=== PATIENT | female | born 1940 | race Caucasian/White ===

== ENCOUNTER 2017-02-27 16:16 | Emergency (ER) | payer BC ==
[~2017-02-27] VITALS: Ht 157.5 cm; Wt 69.0 kg
[~2017-02-27 16:16] MED LIST: ASPI81TA28 PO; EZET10TA63 PO; NAPR1TAB48 PO; OXYC-57 PO
[2017-02-27 16:27] VITALS: TEMP 36.9; Ht 157.5 cm; Wt 69.0 kg
[2017-02-27 16:42] LABS: BASO % 0.5 %; BASO ABS # 0.03 K/uL (0-0.2); COMPLETE YES; EOS % 0.5 %; HEMATOCRIT 45.6 % (37-47); IG% 0.2 %; LYMPH % 29.1 %; LYMPH ABS # 1.71 K/uL (1.2-3.4); MEAN CELL VOLUME 80.3 fL (80-100); MEAN CORPUSCULAR HGB CONC 36.2 g/dl (32-36); MEAN PLATELET VOLUME 10.1 fL (7.4-10.4); MONO % 10.4 %; NEUT % 59.3 %; PLATELET COUNT 259 K/uL (130-400); RED BLOOD COUNT 5.68 M/uL (4.2-5.4); WHITE BLOOD COUNT 5.88 K/uL (4.8-10.8)
[2017-02-27] MEDS ORDERED: ACET-1311 PO (16:43)
[2017-02-27] MEDS ORDERED: OXYC1TAB3 PO (16:43)
[2017-02-27] MEDS ORDERED: PRT/20 PO (16:43)
[2017-02-27] MEDS ORDERED: SODIUM CHLORIDE 0.9% 500ML 500 ML IV STA (16:51)
[2017-02-27] MEDS ORDERED: ONDANSETRON INJ 2 MG/ML 2 ML VIAL IV STA (16:51)
[2017-02-27] MEDS ORDERED: MoRPHine SULFATE 4 MG/ML 1 ML CARP\\VIAL IV STA (16:51)
[2017-02-27] MEDS ORDERED: OPTIRAY 320 IV PRN (17:00)
[2017-02-27 17:06] LABS: BUN/CREATININE RATIO 10.3 (10-20); CALCIUM 9.4 mg/dl (8.5-10.1); CREATININE 0.87 mg/dl (0.60-1.20); POTASSIUM 3.5 mmol/L (3.5-5.1)
[2017-02-27 17:09] LABS: ALB/GLOB RATIO 1.2 (0.9-2)
[2017-02-27 18:34] LABS: URINE APPEARANCE CLEAR (CLEAR); URINE BILIRUBIN NEG (NEG); URINE COLOR YELLOW; URINE NITRITE NEG (NEG); URINE PH 5.5 (4.5-7.5); URINE SPECIFIC GRAVITY 1.007 (1.000-1.030); UROBILINOGEN NEG (NEG)
[2017-02-27 18:36] LABS: MANUAL MICROSCOPIC REQUIRED? NO; REVIEW REQ? NO
--- NOTE | 2017-02-27 19:51 | DIAGNOSTIC IMAGING REPORT ---
CT SCAN OF THE ABDOMEN AND PELVIS WITH IV CONTRAST CLINICAL HISTORY: Right lower quadrant abdominal pain. COMPARISON STUDY: Abdominal CT dated 04/01/2012. TECHNIQUE: Following the IV administration of 92 cc of Optiray 320, CT scan of the abdomen and pelvis is performed from the lung bases to the proximal femora. Images are reviewed in the axial, sagittal, and coronal planes. The examination was performed in a delayed phase of enhancement. Automated dose control exposure was utilized. CT DOSE: 303.90 mGy.cm FINDINGS: Lung bases: The heart is normal in size and without pericardial effusion. Coronary arteries are densely calcified. Emphysema is noted. There is dependent atelectasis. No airspace consolidation or pleural effusion is identified. There is a small hiatal hernia. Enteric contrast fills the distal esophagus. Liver: The contrast-enhanced liver is normal in size, contour, and attenuation. There is [id number] intrahepatic biliary ductal dilatation, likely related to previous cholecystectomy. The hepatic veins and portal veins are patent. Gallbladder: Surgically absent noting clips in the gallbladder fossa. Spleen: Normal in size and attenuation. Pancreas: Moderately atrophic and grossly unremarkable. Adrenal glands: Unremarkable. Kidneys: The contrast enhanced kidneys are atrophic and without hydronephrosis. The kidneys enhance symmetrically. There are numerous large left-sided renal cysts which measure up to 7 cm. These have modestly increased in size from 2012. Abdominal vasculature: The abdominal aorta is normal in course and caliber noting moderate to advanced atherosclerotic calcification. Bowel: The small bowel and colon are normal in course and caliber. There are scattered colonic diverticula without CT evidence of acute diverticulitis. The appendix is not identified. Peritoneum: There is no intraperitoneal free air or abdominal ascites. Lymphadenopathy: None. Pelvic viscera: The bladder is distended and otherwise normal in appearance. The uterus is surgically absent. No adnexal lesion is seen. Skeletal structures: The skeletal structures are osteopenic. There is mild lumbosacral spondylosis. Minimal anterolisthesis is noted at L4-L5. No lytic or blastic lesions are seen. IMPRESSION: 1. There are no acute infectious or inflammatory findings in the abdomen or pelvis. 2. Small hiatal hernia. 3. Chronic changes as above. Electronically signed by: Ady Luo M.D. 02/27/2017 7:49 PM Dictated Date/Time: 02/27/2017 7:41 PM
--- NOTE | 2017-02-27 20:13 | DIAGNOSTIC IMAGING REPORT ---
CT SCAN OF THE LUMBAR SPINE WITHOUT IV CONTRAST CLINICAL HISTORY: Sciatica. COMPARISON STUDY: Radiographs of the lumbar spine dated 10/28/2016. Abdominal CT performed concurrently on 02/27/2017. TECHNIQUE: CT scan of the lumbar spine is performed from the lower thoracic spine to the sacrum. Images are reviewed in the axial, sagittal, and coronal planes. IV contrast was not administered specifically for this examination. There is IV contrast present from the concurrently performed CT scan of the abdomen and pelvis. FINDINGS: The skeletal structures are osteopenic. There is no evidence of fracture or malalignment. Vertebral body height is maintained throughout the lumbar spine. There is 5 mm of anterolisthesis at L4-L5, unchanged from the 10/28/2016 radiographic study. Alignment is otherwise preserved. There is no evidence of spondylolysis. The transverse and spinous processes are intact. Facet arthropathy is noted in the lower lumbar region. No lytic or blastic lesions are seen. There is no evidence of large disc herniation. Moderate degenerative disc space narrowing is seen at L4-L5. Posterior disc bulge is seen at L5-S1. This causes right-sided subarticular stenosis and may impinge on the exiting right L5 nerve root. The central canal is clear as imaged. The visualized sacrum and bony pelvis appear preserved. The paraspinous soft tissues are normal as imaged. The kidneys demonstrate cortical atrophy. Large left renal cysts are observed. There is advanced atherosclerotic calcification of the abdominal. See report of abdominal CT performed concurrently for detailed intraperitoneal findings. IMPRESSION: 1. There is no acute bony abnormality identified involving the lumbosacral spine. 2. Osteopenia and spondylotic change as detailed above. Dictated: 02/27/2017 7:52 PM Transcribed: 02/27/2017 8:12 PM [place] Electronically signed by: Ady Luo M.D. 02/27/2017 8:18 PM Dictated Date/Time: 02/27/2017 7:52 PM
--- NOTE | 2017-02-27 20:35 | EMERGENCY ROOM VISIT NOTE ---
History Report prepared by Nicola: Karthikeyan Rosas Under the Supervision of: Dr. Sander Aponte M.D. First contact with patient: 16:23 Chief Complaint: ABDOMINAL PAIN Stated Complaint: RT SIDE HIP PAIN Nursing Triage Summary: pt is to have spine surgery in March d/t back problems pt has chronic, severe right hip pain pt also had diarrhea for past 2 weeks yesterday the stool turned green in color and pt has developed severe lower abd pain no nausea and no vomiting pt taking oxycodone for pain History of Present Illness The patient is a 76 year old female with a history of a hysterectomy and appendectomy who presents to the Emergency Room with complaints of worsening right lower quadrant abdominal pain that started 2 weeks ago. She says that the pain was not severe until the last 3 or 4 days. Over the past 3 or 4 days, her pain has been most severe when she has a bowel movement. The patient has been having diarrhea for the past 3 weeks, which she describes as explosive with really bad gas initially. Up until today, her stools have been brown, but today , she has had 2 episodes of diarrhea with dark green stools. There was no blood. She denies any fevers, vomiting, urinary symptoms, rectal pain, or leg swelling. The patient is taking OxyContin because she has been dealing with back problems, and was diagnosed with scoliosis and sciatica in October of last year. She is scheduled to have spine surgery on the 23 of March. The patient says that no family members at home are sick and she has not had any recent trips outside the country. She denies any recent antibiotic use. She has had no incontinence or numbness or weakness in her legs. Source of History: patient, family Onset: 2 weeks ago Position: abdomen (RLQ) Symptom Intensity: moderate Timing: worsening Modifying Factors (Worsening): defecation Associated Symptoms: + diarrhea (with dark green stool today), No fevers, No hematochezia, No urinary symptoms, No vomiting Note: Associated symptoms: Denies rectal pain or leg swelling. Review of Systems See HPI for pertinent positives & negatives. A total of 10 systems reviewed and were otherwise negative. Past Medical & Surgical Medical Problems: (1) Back pain (2) Scoliosis Surgical Problems: (1) H/O: hysterectomy Family History Patient reports no known family medical history. Social History Smoking Status: Never Smoker Marital Status: Housing Status: lives with family Occupation Status: employed Current/Historical Medications Scheduled Aspirin (Aspirin Ec), 81 MG PO HS Ezetimibe (Zetia), 10 MG PO HS Pantoprazole (Protonix), 20 MG PO DAILY Scheduled PRN Acetaminophen (Tylenol), 650 MG PO Q6H PRN for Pain Naproxen (Naprosyn), 250 MG PO BID PRN for Pain Oxycodone Ir (Roxicodone Ir), 1-2 TAB PO Q6H PRN for Severe Pain Allergies Coded Allergies: Nitrofurantoin (Verified Allergy, Intermediate, HIVES,N&V, 02/27/17) Statins (Verified Adverse Reaction, Unknown, RESTLESS LEG/CRAMPING, ) Physical Exam Vital Signs Date Time Temp Pulse Resp B/P Pulse Ox O2 Delivery O2 Flow Rate FiO2 02/27/17 19:44 105 12 156/70 98 Room Air 02/27/17 18:49 99 16 145/72 95 Room Air 02/27/17 17:08 70 16 163/89 99 Room Air 02/27/17 16:29 96 02/27/17 16:27 36.9 96 20 206/86 98 Room Air Physical Exam Constitutional: Vital signs reviewed. Eyes: Pupils are equal round reactive to light. Conjunctiva are noninjected. ENT: Pharynx is clear without erythema or exudate. Mucous membranes are dry. Neck supple without meningeal signs. Respiratory: Clear to auscultation bilaterally. Breath sounds are equal bilaterally. Cardiovascular: Regular rate and rhythm. No rubs or gallops. GI: Soft, nondistended. Right lower quadrant tenderness, no guarding. Bowel sounds are present. Musculoskeletal: No peripheral edema. No lower extremity tenderness. Integumentary: No cyanosis. Neurological: The patient is awake and alert. No focal deficits. Motor and sensation intact in lower extremities bilaterally. Psychiatric: Normal affect. Medical Decision & Procedures ER Provider Diagnostic Interpretation: CT results as stated below per my review and radiologist interpretation. ] CT SCAN OF THE ABDOMEN AND PELVIS WITH IV CONTRAST CLINICAL HISTORY: Right lower quadrant abdominal pain. COMPARISON STUDY: Abdominal CT dated 04/01/2012. TECHNIQUE: Following the IV administration of 92 cc of Optiray 320, CT scan of the abdomen and pelvis is performed from the lung bases to the proximal femora. Images are reviewed in the axial, sagittal, and coronal planes. The examination was performed in a delayed phase of enhancement. Automated dose control exposure was utilized. CT DOSE: 303.90 mGy.cm FINDINGS: Lung bases: The heart is normal in size and without pericardial effusion. Coronary arteries are densely calcified. Emphysema is noted. There is dependent atelectasis. No airspace consolidation or pleural effusion is identified. There is a small hiatal hernia. Enteric contrast fills the distal esophagus. Liver: The contrast-enhanced liver is normal in size, contour, and attenuation. There is [id number] intrahepatic biliary ductal dilatation, likely related to previous cholecystectomy. The hepatic veins and portal veins are patent. Gallbladder: Surgically absent noting clips in the gallbladder fossa. Spleen: Normal in size and attenuation. Pancreas: Moderately atrophic and grossly unremarkable. Adrenal glands: Unremarkable. Kidneys: The contrast enhanced kidneys are atrophic and without hydronephrosis. The kidneys enhance symmetrically. There are numerous large left-sided renal cysts which measure up to 7 cm. These have modestly increased in size from 2012. Abdominal vasculature: The abdominal aorta is normal in course and caliber noting moderate to advanced atherosclerotic calcification. Bowel: The small bowel and colon are normal in course and caliber. There are scattered colonic diverticula without CT evidence of acute diverticulitis. The appendix is not identified. Peritoneum: There is no intraperitoneal free air or abdominal ascites. Lymphadenopathy: None. Pelvic viscera: The bladder is distended and otherwise normal in appearance. The uterus is surgically absent. No adnexal lesion is seen. Skeletal structures: The skeletal structures are osteopenic. There is mild lumbosacral spondylosis. Minimal anterolisthesis is noted at L4-L5. No lytic or blastic lesions are seen. IMPRESSION: 1. There are no acute infectious or inflammatory findings in the abdomen or pelvis. 2. Small hiatal hernia. 3. Chronic changes as above. Electronically signed by: Ady Luo M.D. 02/27/2017 7:49 PM Dictated Date/Time: 02/27/2017 7:[address] SCAN OF THE LUMBAR SPINE WITHOUT IV CONTRAST CLINICAL HISTORY: Sciatica. COMPARISON STUDY: Radiographs of the lumbar spine dated 10/28/2016. Abdominal CT performed concurrently on 02/27/2017. TECHNIQUE: CT scan of the lumbar spine is performed from the lower thoracic spine to the sacrum. Images are reviewed in the axial, sagittal, and coronal planes. IV contrast was not administered specifically for this examination. There is IV contrast present from the concurrently performed CT scan of the abdomen and pelvis. FINDINGS: The skeletal structures are osteopenic. There is no evidence of fracture or malalignment. Vertebral body height is maintained throughout the lumbar spine. There is 5 mm of anterolisthesis at L4-L5, unchanged from the 10/28/2016 radiographic study. Alignment is otherwise preserved. There is no evidence of spondylolysis. The transverse and spinous processes are intact. Facet arthropathy is noted in the lower lumbar region. No lytic or blastic lesions are seen. There is no evidence of large disc herniation. Moderate degenerative disc space narrowing is seen at L4-L5. Posterior disc bulge is seen at L5-S1. This causes right-sided subarticular stenosis and may impinge on the exiting right L5 nerve root. The central canal is clear as imaged. The visualized sacrum and bony pelvis appear preserved. The paraspinous soft tissues are normal as imaged. The kidneys demonstrate cortical atrophy. Large left renal cysts are observed. There is advanced atherosclerotic calcification of the abdominal. See report of abdominal CT performed concurrently for detailed intraperitoneal findings. IMPRESSION: 1. There is no acute bony abnormality identified involving the lumbosacral spine. 2. Osteopenia and spondylotic change as detailed above. Dictated: 02/27/2017 7:52 PM Transcribed: 02/27/2017 8:12 PM JORGE L_Radha Electronically signed by: Ady Luo M.D. 02/27/2017 8:18 PM Dictated Date/Time: 02/27/2017 7:52 PM Laboratory Results 02/27/17 16:20 Red Blood Count 5.68, Mean Corpuscular Volume 80.3, Mean Corpuscular Hemoglobin 29.0, Mean Corpuscular Hemoglobin Concent 36.2, Mean Platelet Volume 10.1, Neutrophils (%) (Auto) 59.3, Lymphocytes (%) (Auto) 29.1, Monocytes (%) (Auto) 10.4, Eosinophils (%) (Auto) 0.5, Basophils (%) (Auto) 0.5, Neutrophils # (Auto ) 3.49, Lymphocytes # (Auto) 1.71, Monocytes # (Auto) 0.61, Eosinophils # (Auto ) 0.03, Basophils # (Auto) 0.03 02/27/17 16:20 Test 02/27/17 16:20 02/27/17 17:55 White Blood Count 5.88 K/uL (4.8-10.8) Red Blood Count 5.68 M/uL (4.2-5.4) Hemoglobin 16.5 g/dL (12.0-16.0) Hematocrit 45.6 % (37-47) Mean Corpuscular Volume 80.3 fL (80-100) Mean Corpuscular Hemoglobin 29.0 pg (25-34) Mean Corpuscular Hemoglobin Concent 36.2 g/dl (32-36) Platelet Count 259 K/uL (130-400) Mean Platelet Volume 10.1 fL (7.4-10.4) Neutrophils (%) (Auto) 59.3 % Lymphocytes (%) (Auto) 29.1 % Monocytes (%) (Auto) 10.4 % Eosinophils (%) (Auto) 0.5 % Basophils (%) (Auto) 0.5 % Neutrophils # (Auto) 3.49 K/uL (1.4-6.5) Lymphocytes # (Auto) 1.71 K/uL (1.2-3.4) Monocytes # (Auto) 0.61 K/uL (0.11-0.59) Eosinophils # (Auto) 0.03 K/uL (0-0.5) Basophils # (Auto) 0.03 K/uL (0-0.2) RDW Standard Deviation 37.1 fL (36.4-46.3) RDW Coefficient of Variation 12.7 % (11.5-14.5) Immature Granulocyte % (Auto) 0.2 % Immature Granulocyte # (Auto) 0.01 K/uL (0.00-0.02) Anion Gap 12.0 mmol/L (3-11) Est Creatinine Clear Calc Drug Dose 50.1 ml/min Estimated GFR () 75.0 Estimated GFR (Non- 64.7 BUN/Creatinine Ratio 10.3 (10-20) Calcium Level 9.4 mg/dl (8.5-10.1) Total Bilirubin 0.5 mg/dl (0.2-1) Aspartate Amino Transf (AST/SGOT) 15 U/L (15-37) Alanine Aminotransferase (ALT/SGPT) 20 U/L (12-78) Alkaline Phosphatase 62 U/L (45-117) Total Protein 7.3 gm/dl (6.4-8.2) Albumin 4.0 gm/dl (3.4-5.0) Globulin 3.3 gm/dl (2.5-4.0) Albumin/Globulin Ratio 1.2 (0.9-2) Lipase 119 U/L (73-393) Urine Color YELLOW Urine Appearance CLEAR (CLEAR) Urine pH 5.5 (4.5-7.5) Urine Specific [place] 1.007 (1.000-1.030) Urine Protein NEG (NEG) Urine Glucose (UA) NEG (NEG) Urine Ketones 2+ (NEG) Urine Occult Blood NEG (NEG) Urine Nitrite NEG (NEG) Urine Bilirubin NEG (NEG) Urine Urobilinogen NEG (NEG) Urine Leukocyte Esterase TRACE (NEG) Urine WBC (Auto) 1-5 /hpf (0-5) Urine RBC (Auto) 0-4 /hpf (0-4) Urine Hyaline Casts (Auto) 0 /lpf (0-5) Urine Epithelial Cells (Auto) 10-20 /lpf (0-5) Urine Bacteria (Auto) NEG (NEG) Laboratory results as reviewed by me. Medications Administered Medications (Trade) Dose Ordered Sig/Zenon Route Start Time Stop Time Status Last Admin Dose Admin Morphine Sulfate (MoRPHine SULFATE INJ) 4 mg ONE STAT IV 02/27/17 16:51 02/27/17 16:53 DC 02/27/17 17:00 4 MG Ondansetron HCl 4 mg 4 mg NOW STAT IV 02/27/17 16:51 02/27/17 16:53 DC 02/27/17 17:00 4 MG Sodium Chloride (Nss 500ml) 500 ml @ 999 mls/hr Q31M STAT IV 02/27/17 16:51 02/27/17 17:21 DC 02/27/17 17:01 999 MLS/HR ED Course 1639: The patient was evaluated in room C8. A complete history and physical exam was performed. 1651: Ordered NSS 500 ml @ 999 mls/hr IV, Zofran Inj 4 mg IV, Morphine Sulfate Inj 4 mg IV. 1734: I reevaluated the patient and she is feeling better. I discussed the blood test results with her. We are still waiting for a stool sample and CT scan. 2014: I reevaluated the patient and she is feeling much better, but is still unable to give a stool sample, so she will drop off the stool sample in the lab tomorrow morning. She has an order by her doctor for it. The patient verbally expressed understanding and agreement of the treatment plan. The patient will be discharged. Medical Decision This is a 76-year-old female who presents with diarrhea, abdominal pain and back pain. Differential diagnosis includes C. difficile, colitis, enteritis, food borne illness, dehydration, lumbar disc disease, compression fracture. I did perform a limited focused review of portions of the patient's old chart on the electronic medical record. The patient was seen here October of last year for sciatica and had an x-ray which showed degenerative changes and scoliosis. I did evaluate the patient as noted above. IV access was established. The patient brought in a stool sample but unfortunately it was not refrigerated and so we could not use it. She was unable to give us a stool sample here to check for C. difficile antigen or stool culture. I did treat the patient with normal saline IV and IV morphine and Zofran. I did order and personally review the patient's urinalysis as described above. I did order and review the patient's blood work as noted in the electronic medical record. Her white blood cell count is not elevated. I did order a CT of the abdomen and pelvis and lumbosacral spine. I did review the images myself as well as the radiology report as described above. There is no evidence of acute intra-abdominal process. No evidence of fracture in the lumbar spine. She does have multiple left-sided kidney cysts which he knows about. I did reassess the patient. She is feeling much better. I did discuss the test results with her and her family. She is still unable to give us a stool sample. I did check with the charge nurse and she stated that the patient can give a sample tomorrow morning and the level run it then. The patient was discharged in good condition. She will follow up with her doctor for further evaluation. She was given return instructions as below. Impression Primary Impression: Right lower quadrant abdominal pain Additional Impressions: Diarrhea Chronic low back pain Dehydration Scribe Attestation The scribe's documentation has been prepared under my direct and personally reviewed by me in its entirety. I confirm that the note above accurately reflects all work, treatment, procedures, and medical decision making performed by me. Departure Information Dispostion Home / Self-Care Referrals Adonay Almaguer M.D. (PCP) Forms HOME CARE DOCUMENTATION FORM, IMPORTANT VISIT INFORMATION Patient Instructions ED Abd Pain Unkn Cause Fem, ED Back Pain Acute Chronic, My [facility] Additional Instructions You have been examined and treated today on an emergency basis only. This is not a substitute for, or an effort to provide, complete comprehensive medical care. It is impossible to recognize and treat all injuries or illnesses in a single emergency department visit. It is therefore important that you follow up closely with your physician. Call as soon as possible for an appointment. Return for worsening symptoms or if you develop fever, vomiting, loss of control of your bowel or bladder, numbness or weakness to your legs, numbness to your private area, difficulty urinating, or any other concerning symptoms. Problem Qualifiers Additional Impressions: Diarrhea Diarrhea type: unspecified type Qualified Codes: R19.7 - Diarrhea, unspecified Chronic low back pain Back pain laterality: right Sciatica presence: with sciatica Sciatica laterality: sciatica of right side Qualified Codes: M54.41 - Lumbago with sciatica, right side; G89.29 - Other chronic pain
[2017-02-27 20:38] VITALS: BP 131/82; PULSE 100; O2SAT 96
[2017-03-06] MEDS ORDERED: FLX5 PO (15:11)
[2017-03-12] MEDS ORDERED: RXC5 PO (16:09)
== END 2017-02-27 20:40 | disposition home or self-care (01) ==
LOC: EDBD 16:16 → C.EDC 16:18
DX: R10.31 Right lower quadrant pain (principal); R19.7 Diarrhea, unspecified; G89.29 Other chronic pain; M54.41 Lumbago with sciatica, right side; E86.0 Dehydration; M41.9 Scoliosis, unspecified; Z90.710 Acquired absence of both cervix and uterus; K44.9 Diaphragmatic hernia without obstruction or gangrene; N28.1 Cyst of kidney, acquired

== ENCOUNTER → 2017-02-28 | Outpatient (CLI) | payer BC ==
[~2017-02-28] MED LIST changes: +ACET-1311 PO; +FLX5 PO; -OXYC-57 PO; +OXYC1TAB3 PO; +PRT/20 PO; +RXC5 PO
== END | disposition home or self-care (01) ==
LOC: C.LABSPEC 09:07
PROVIDERS: ATTEND Internal Medicine
DX: R19.7 Diarrhea, unspecified (principal)

== ENCOUNTER 2017-03-09 08:26 | Inpatient (IN) | payer BC, OTHER ==
[2017-03-05 12:17] LABS: BASO % 0.5 %; BASO ABS # 0.04 K/uL (0-0.2); COMPLETE YES; EOS % 0.9 %; HEMATOCRIT 44.5 % (37-47); IG% 0.1 %; LYMPH % 23.9 %; LYMPH ABS # 1.84 K/uL (1.2-3.4); MEAN CELL VOLUME 84.6 fL (80-100); MEAN CORPUSCULAR HEMOGLOBIN 28.9 pg (25-34); MEAN CORPUSCULAR HGB CONC 34.2 g/dl (32-36); MEAN PLATELET VOLUME 10.2 fL (7.4-10.4); MONO % 8.7 %; NEUT % 65.9 %; PLATELET COUNT 275 K/uL (130-400); RED BLOOD COUNT 5.26 M/uL (4.2-5.4); WHITE BLOOD COUNT 7.71 K/uL (4.8-10.8)
--- NOTE | 2017-03-05 12:31 | DIAGNOSTIC IMAGING REPORT ---
CHEST 2 VIEWS ROUTINE CLINICAL HISTORY: PRE-OP COMPARISON STUDY: No previous studies for comparison. FINDINGS: The bones soft tissues and hemidiaphragms are normal. The cardiomediastinal silhouette is normal. The lungs are clear. The pulmonary vasculature is normal. IMPRESSION: Negative chest. Electronically signed by: Nolberto Schafer M.D. 03/05/2017 12:28 PM Dictated Date/Time: 03/05/2017 12:28 PM
[2017-03-05 12:59] LABS: BLOOD UREA NITROGEN 9 mg/dl (7-18); BUN/CREATININE RATIO 11.1 (10-20); CALCIUM 9.2 mg/dl (8.5-10.1); CARBON DIOXIDE 25 mmol/L (21-32); CHLORIDE 109 mmol/L (98-107); CREATININE 0.81 mg/dl (0.60-1.20); GLUCOSE 119 mg/dl (70-99); POTASSIUM 3.5 mmol/L (3.5-5.1); SODIUM 141 mmol/L (136-145)
--- NOTE | 2017-03-05 13:46 | HISTORY & PHYSICAL EXAMINATION ---
DATE OF ADMISSION: 03/09/2017 HISTORY OF PRESENT ILLNESS: The patient presents to our practice with a complaint of pain in her back down her right leg. This started around of 2015. No specific accident, trauma or fall. Left leg is asymptomatic. Sitting, standing, and walking reproduce her pain. She is most comfortable lying down or on her left side or leaning forward. She states she has basically been homebound since . Denies bowel or bladder dysfunction. She has trialed senior care specialist without relief. She has trialed [address] Beard, again without long lasting relief. She is taking naproxen for pain control. MEDICAL HISTORY: Significant for GERD, arthritis, basal cell carcinoma in 2016, gallbladder disease, hiatal hernia, inflammatory bowel disease. SURGICAL HISTORY: Significant for Mohs procedure x2, cataract, umbilical hernia repair, cholecystectomy, and a cystocele repair. ALLERGIES: INCLUDE STATINS AND MACRODANTIN. MEDICATIONS: Include: 1. Zetia 10 mg a day. 2. Protonix 40 mg a day. 3. Aspirin 81 mg a day. 4. Naproxen 400 mg p.r.n. pain. SOCIAL HISTORY: She is . She is retired. Denies alcohol. Denies tobacco. Denies drug use. FAMILY HISTORY: Significant for hypertension, cancer and arthritis. REVIEW OF SYSTEMS: Significant for constipation, heartburn, muscle weakness, poor coordination, back and leg pain. PHYSICAL EXAMINATION: VITAL SIGNS: 5 feet 2 inches, 144 pounds. HEENT: Speech appropriate. CARDIOPULMONARY: No gross abnormalities. ABDOMEN: Soft, nontender. GENITOURINARY: Deferred. NEUROLOGIC: Cranial nerves II-XII grossly intact. MUSCULOSKELETAL: She is quite uncomfortable. She ambulates with a right antalgic gait. Lumbar extension reproduces her right leg pain; flexion does not. Strength is intact in bilateral lower extremities. No tension signs. ASSESSMENT: Grade 1 spondylolisthesis of L4-L5; neural foraminal stenosis, severe on the right L5-S1. PLAN: At this point in time, she has tried and failed conservative therapy. May consider surgical intervention. Surgery would require lumbar decompression, instrumented fusion L4-L5, L5-S1. In addition, due to her sedentary lifestyle, preoperatively we would ask for Dopplers of bilateral lower extremities to rule out DVT. We also will have her see her family physician Dr. Almaguer preoperatively.
--- NOTE | 2017-03-05 14:04 | DIAGNOSTIC IMAGING REPORT ---
BILATERAL LOWER EXTREMITY VENOUS DOPPLER HISTORY: Pain. Edema. - COMPARISON STUDY: None. FINDINGS: There is normal compressibility, flow, and augmentation within the bilateral lower extremity deep venous systems. IMPRESSION: No DVT within the right or left lower extremity. Electronically signed by: Nolberto Schafer M.D. 03/05/2017 2:02 PM Dictated Date/Time: 03/05/2017 2:02 PM
[2017-03-05 15:00] LABS: URINE APPEARANCE CLEAR (CLEAR); URINE BILIRUBIN NEG (NEG); URINE COLOR YELLOW; URINE NITRITE NEG (NEG); URINE PH 5.5 (4.5-7.5); UROBILINOGEN NEG (NEG)
[2017-03-05 15:03] LABS: MANUAL MICROSCOPIC REQUIRED? NO; REVIEW REQ? NO
[2017-03-06 15:14] VITALS: BMI 24.0
[~2017-03-09] VITALS: Ht 160 cm; Wt 62.7 kg
[2017-03-09] VITALS (10 sets, daily range): BP systolic 118–151; BP diastolic 67–92; PULSE 66–113; TEMP 36.1–36.9; O2SAT 91–100; Ht 160 cm; Wt 62.7 kg
--- NOTE | 2017-03-09 07:28 | History & Physical Bridge Note ---
H&P Re-Evaluation Bridge Note: I have examined the patient, reviewed the History & Physical and in the interval since the performance of the History & Physical I have noted the following changes of clinical significance: No changes noted
[~2017-03-09 08:26] MED LIST changes: +CEFAZOLIN 1000MG/55 ML D5W IV SCH; +LACTATED RINGER'S 1000ML 1,000 ML IV SCH; -RXC5 PO
[2017-03-09] MEDS ORDERED: EpHEDrine SULFATE INJ 50 MG/ML AMP IV PRN (08:45)
[2017-03-09] MEDS ORDERED: HYDROmorphone INJ 0.5 MG/0.5 ML SYR IV PRN (08:45)
[2017-03-09] MEDS ORDERED: ONDANSETRON INJ 2 MG/ML 2 ML VIAL IV PRN ×2 (08:45→11:45)
[2017-03-09] MEDS ORDERED: FENTANYL CITRATE INJ 50 MCG/1 ML 2 ML VIAL IV PRN (08:45)
[2017-03-09] MEDS ORDERED: ATROPINE SULFATE 0.1 MG/ML 5ML SYR IV PRN (08:45)
[2017-03-09] MEDS ORDERED: FENTANYL CITRATE INJ 50 MCG/1 ML 2 ML VIAL ONE ×4 (09:18→11:24)
[2017-03-09] MEDS ORDERED: MIDAZOLAM HCL 1 MG/ML 2ML VIAL ONE (09:18)
[2017-03-09] MEDS ORDERED: SODIUM CHLORIDE 0.9% PF 50 ML VIAL ONE (09:48)
[2017-03-09] MEDS ORDERED: BUPIVACAINE/EPINEPHRINE 0.5% MPF 1:200,000 30 ML VIAL ONE (09:48)
[2017-03-09] MEDS ORDERED: BACITRACIN 50000 UNIT VIAL ONE (09:48)
[2017-03-09] MEDS ORDERED: HYDROmorphone INJ 2 MG/ML SYR/VIAL ONE ×2 (10:22→11:45)
[2017-03-09] MEDS ORDERED: PHENYLEPHRINE 100MCG/ML 5ML SYR ONE ×2 (10:51→11:46)
[2017-03-09] MEDS ORDERED: ROCURONIUM BROMIDE 10 MG/ML 5 ML VIAL ONE ×2 (11:11→11:46)
[2017-03-09] MEDS ORDERED: DEXAMETHASONE SOD INJ 4 MG/ML VIAL ONE (11:11)
[2017-03-09] MEDS ORDERED: PROPOFOL IV EMULSION 10 MG/ML 20 ML VIAL IV ONE (11:11)
[2017-03-09] MEDS ORDERED: ESMOLOL HCL 10 MG/ML 10 ML VIAL ONE (11:11)
[2017-03-09] MEDS ORDERED: LIDOCAINE HCL 2% 2 ML VIAL (20MG/ML) ONE (11:11)
[2017-03-09] MEDS ORDERED: CEFAZOLIN SOD 1 GM VIAL ONE (11:25)
[2017-03-09] MEDS ORDERED: FLOSEAL HEMOSTATIC MATRIX 10ML TOP ONE (11:33)
[2017-03-09] MEDS ORDERED: DURASEAL DURAL SEALANT 5ML TOP ONE (11:35)
[2017-03-09] MEDS ORDERED: SODIUM CHLORIDE 0.9% 1000ML 1,000 ML IV SCH (11:37)
--- NOTE | 2017-03-09 11:37 | [facility] Post Operative Brief Note ---
Immediate Operative Summary Operative Date Mar 09, 2017. Pre-Operative Diagnosis Grade 1 spondylolisthesis of L4-L5; neural foraminal stenosis, severe on the right L5-S1. Post-Operative Diagnosis Grade 1 spondylolisthesis of L4-L5; neural foraminal stenosis, severe on the right L5-S1. Procedure(s) Performed L4-L5, L5-S1 Lumbar Decompression/Laminectomy, Discectomy, Pedicle Screw Fixation, Application of Leigh, Application of Bone Morphogenetic Protein, and Posteriolateral Gutter Fusion Surgeon Dr. Dmitry Ross Expressive Art Therapist Surgeon(s) Pilar Maurer PA-C Estimated Blood Loss 150ML Findings stenosis/spondy Specimens None per surgeon
[2017-03-09] MEDS ORDERED: METOCLOPRAMIDE HCL INJ 5 MG/ML 2 ML VIAL IV PRN (11:45)
[2017-03-09] MEDS ORDERED: DO NOT ADMINISTER FLU VACCINE PRN ×3 (11:45)
[2017-03-09] MEDS ORDERED: SOD PHOSPHATE/SOD BIPHOSPHATE ENEMA 132 ML BTL PR PRN (11:45)
[2017-03-09] MEDS ORDERED: MAGNESIUM HYDROXIDE SUSP 30 ML UDC PO PRN (11:45)
[2017-03-09] MEDS ORDERED: PROMETHAZINE HCL INJ 12.5 MG in SODIUM CHLORIDE 0.9% 50ML 50 ML IV PRN (11:45)
[2017-03-09] MEDS ORDERED: ALUMINUM/MAGNESIUM SUSP 30 ML UDC PO PRN (11:45)
[2017-03-09] MEDS ORDERED: BISACODYL 10 MG SUPP PR PRN (11:45)
[2017-03-09] MEDS ORDERED: hydrOXYzine HCL 25 MG TAB PO PRN (11:45)
[2017-03-09] MEDS ORDERED: LORAZEPAM INJ 0.5 MG in SYRINGE 0.75 ML IV PRN (11:45)
[2017-03-09] MEDS ORDERED: FAMOTIDINE 20 MG TAB PO PRN (11:45)
[2017-03-09] MEDS ORDERED: ACETAMINOPHEN IV 100 ML IV PRN (11:45)
[2017-03-09] MEDS ORDERED: DO NOT ADMINISTER PNEUMOCOCCAL VACCINE PRN ×2 (11:45)
[2017-03-09] MEDS ORDERED: NALOXONE HCL 0.4 MG/1 ML VIAL/CARP IV PRN ×2 (11:45)
[2017-03-09] MEDS ORDERED: KETOROLAC TROMETHAMINE 30 MG/ML VIAL ONE (11:46)
[2017-03-09] MEDS ORDERED: NEOSTIGMINE METHYLSULFATE 1 MG/ML 10ML VIAL ONE (11:46)
[2017-03-09] MEDS ORDERED: ONDANSETRON INJ 2 MG/ML 2 ML VIAL ONE (11:46)
[2017-03-09] MEDS ORDERED: GLYCOPYRROLATE INJ 0.2 MG/ML VIAL ONE (11:46)
[2017-03-09] MEDS: HYDROmorphone HCL 0.5MG/ML 50 ML CASSETTE IV PRN ×3 (12:05→22:51)
--- NOTE | 2017-03-09 12:06 | OPERATIVE REPORT ---
DATE OF OPERATION: 03/09/2017 PREOPERATIVE DIAGNOSES: Spinal stenosis, spondylolisthesis. POSTOPERATIVE DIAGNOSIS: Same. PROCEDURE PERFORMED: 1. Lumbar decompression, medial facetectomy, and foraminotomy L3-4, L4-5, L5-S1. 2. Posterior spinal fusion L4-5, L5-S1. 3. Placement posterior segmental instrumentation using Orthros rods and screws L4-5, L5-S1. 4. Placement of locally harvested morcellized autograft in posterior gutters. 5. Placement of Infuse collagen sponge combined with Mastergraft and Leigh bone graft in the posterior lateral gutters. SURGEON: Dr. Dmitry Ross. BUSINESS PROCESS REPRESENTATIVE: Pilar Roman PA-C. Due to the complex nature of the procedure, the entire surgery was performed with the physical laboratory assistant of Pilar Roman PA-C. The assistant associate full professor, under direct supervision, was involved in the actual performance of all aspects of the surgical procedure including hemostasis, tissue retraction and incision, instrument management, patient positioning, and wound closure. ANESTHESIA: General. DISPOSITION: The patient awakened and taken to PACU in stable condition. HISTORY OF PATIENT'S PROBLEMS: This is a 76-year-old female who presents with above-mentioned diagnosis. After failing an extensive course of nonoperative care, elected to undergo the above-mentioned procedure. Risks, benefits, pros, cons, and alternatives were outlined in detail preoperatively. OPERATION AND FINDINGS: PROCEDURE: The patient was met with preoperatively, the case discussed and all questions were addressed. At that point the patient was taken back to operative suite and after undergoing successful general intubation by the department of anesthesia was placed in prone position on the Ralph table atop Jeffrey frame. All bony prominences were well padded and the eyes were inspected to ensure there was no external pressure placed upon them. At this point, the lumbar spine was prepped and draped in normal sterile fashion. Sharp dissection with the assistance of Bovie cautery performed down to and exposing the lamina and transverse processes of L4, L5 and sacral ala bilaterally. I then removed part of the lamina of L5, complete laminectomy of L4, partial laminectomy of L3 addressing severe lateral recess and foraminal disease. I did elect to retain majority at the L5-S1 facets for additional bone grafting secondary to osteoporosis and stability required. After decompression, pedicle screws were placed in L4, L5 and S1 levels bilaterally with the assistance of fluoroscopy and the appropriate size héctor locked into position. A crosslink was locked into position. The transverse processes of L4, L5 and sacral ala were burred to subcortical bleeding bone. Infuse collagen sponge combined with Mastergraft placed in the posterior gutters and Leigh bone grafting in the L5-S1 facets, 7 flat ANGEL drain inserted. Incision was closed with 1-0 Vicryl in the fascia, 2-0 Vicryl subcutaneously, 4-0 Monocryl for final skin closure. Steri-Strips and sterile dressing placed. The patient was awakened and taken to PACU in stable condition. I attest to the content of the Intraoperative Record and any orders documented therein. Any exceptio ns are noted below.
--- NOTE | 2017-03-09 12:06 | DIAGNOSTIC IMAGING REPORT ---
INTRAOPERATIVE FLUOROSCOPIC IMAGES OF THE LUMBAR SPINE CLINICAL HISTORY: L4-S1 DECOMP/FUSION COMPARISON STUDY: Lumbar spine CT February 27, 2017. Fluoroscopy time: 31 seconds. FINDINGS: 2 fluoroscopic images demonstrate findings consistent with a posterior decompression with bilateral particle screws at the L4, L5 and S1 levels. IMPRESSION: Findings consistent with a posterior decompression with bilateral pedicle screw fusion from L4 through S1. Electronically signed by: Herb Yu M.D. 03/09/2017 12:04 PM Dictated Date/Time: 03/09/2017 12:02 PM
[2017-03-09] MEDS: SODIUM CHLORIDE 0.9% 1000ML 1,000 ML IV SCH (13:10)
--- NOTE | 2017-03-09 14:40 | Medical Consult ---
Consultation Date of Consultation: Mar 09, 2017. Attending Physician: Dmitry Ross D.O. Reason for Consultation: Medical management History of Present Illness This patient is a pleasant 76-year-old female that underwent a lumbar decompression at L4-L5 and L5-S1 today. She is currently rating her pain at approximately 8/10. 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 The pain radiates into her right hip. The patient otherwise has no complaints. She is tolerating her lunch without difficulty. She has not yet passed gas since the surgery. She denies any abdominal pain. The patient denies any recent chest pain or pressure. No dyspnea with exertion. She is able to walk approximately one block without difficulty (besides her back/hip pain). Past Medical/Surgical History Medical Problems: GERD Arthritis History of basal cell carcinoma Hyperlipidemia Status post cholecystectomy, Mohs procedure, cataract surgery and umbilical hernia surgery Family History Patient reports no known family medical history. Both mother and father in her 60s of coronary artery disease. She also reports a family history of diabetes. Social History Smoking Status: Never Smoker Smokeless Tobacco Use: No Alcohol Use: none Marital Status: Housing Status: lives with significant other Occupation Status: employed Allergies Coded Allergies: Nitrofurantoin (Verified Allergy, Intermediate, HIVES,N&V, 03/09/17) Statins (Verified Adverse Reaction, Unknown, RESTLESS LEG/CRAMPING, ) Home Medications Zetia 10 mg daily Protonix 40 mg daily Aspirin 81 mg daily Naprosyn 200 mg every 12 hours as needed for pain Oxycodone every 4 hours as needed for pain Current Inpatient Medications Current Inpatient Medications Medications (Trade) Dose Ordered Sig/Zenon Route Start Time Stop Time Status Last Admin Dose Admin Lactated Ringer's 1,000 ml @ 15 mls/hr Q24H IV 03/09/17 06:00 03/10/17 05:59 Cefazolin Sodium 55 ml @ 100 mls/hr PREOP IV 03/09/17 06:00 03/09/17 18:00 03/09/17 09:53 100 MLS/HR Dexamethasone Sodium Phosphate 6 mg/Syringe 1.5 ml @ 1 mls/min Q8H IV 03/09/17 18:00 03/10/17 10:02 Promethazine HCl/ Sodium Chloride (Phenergan Inj/ Nss 50ml) 50.5 ml @ 202 mls/hr Q6H PRN IV 03/09/17 11:45 04/08/17 11:44 Ondansetron HCl (Zofran Inj) 4 mg Q6H PRN IV 03/09/17 11:45 04/08/17 11:44 Metoclopramide HCl (Reglan Inj) 10 mg Q6H PRN IV 03/09/17 11:45 04/08/17 11:44 Lorazepam 0.5 mg 0.5 mg Q8H PRN PO 03/09/17 11:45 04/08/17 11:44 Lorazepam/Syringe (Ativan Inj/ Syringe) 1 ml @ 1 mls/min Q8H PRN IV 03/09/17 11:45 04/08/17 11:44 Pneumococcal Polysaccharide Vaccine 1 ea PRN PRN N/A 03/09/17 11:45 04/08/17 11:44 Influenza Virus Vacc Triv Types A&B 1 ea 1 ea PRN PRN N/A 03/09/17 11:45 04/08/17 11:44 Sodium Chloride (Nss 1000ml) 1,000 ml @ 75 mls/hr [id number] IV 03/09/17 11:37 04/08/17 11:36 03/09/17 13:10 75 MLS/HR Polyethylene (Miralax Powder Packet) 17 gm Q6 PO 03/11/17 06:00 04/10/17 05:59 Bisacodyl (Dulcolax Supp) 10 mg DAILY PRN MS 03/09/17 11:45 04/08/17 11:44 Magnesium Hydroxide (Milk Of Magnesia Susp) 30 ml DAILY PRN PO 03/09/17 11:45 04/08/17 11:44 Hydromorphone HCl (Dilaudid Inj) 0.5-1mg prn moder... Q3H PRN IV 03/10/17 06:00 03/24/17 05:59 Oxycodone HCl 5-10mg prn moderate to sev... Q4H PRN PO 03/10/17 06:00 03/24/17 05:59 Cefazolin Sodium/ Dextrose (Ancef Iv/D5 50ml) 55 ml @ 100 mls/hr Q8H IV 03/09/17 18:00 03/10/17 02:32 Acetaminophen 1000 mg 1,000 mg Q8H PRN PO 03/09/17 11:45 04/08/17 11:44 Acetaminophen (Ofirmev Iv) 100 ml @ 400 mls/hr Q8H PRN IV 03/09/17 11:45 04/08/17 11:44 Naloxone HCl (Narcan Inj) 0.1 mg Q5M PRN IV 03/09/17 11:45 04/08/17 11:44 Senna/Docusate Sodium (Senokot S Tab) 2 tab HS PO 03/09/17 21:00 04/08/17 20:59 Sodium Biphosphate/ Sodium Phosphate (Fleet Enema) 132 ml ONE PRN MS 03/09/17 11:45 04/08/17 11:44 Hydroxyzine HCl (Vistaril Tab) 25 mg Q8H PRN PO 03/09/17 11:45 04/08/17 11:44 Al Hydroxide/Mg Hydroxide (Maalox Susp) 30 ml Q6H PRN PO 03/09/17 11:45 04/08/17 11:44 Famotidine (Pepcid Tab) 20 mg Q12 PRN PO 03/09/17 11:45 04/08/17 11:44 Diphenhydramine HCl (Benadryl Cap) 25 mg Q6H PRN PO 03/09/17 11:45 04/08/17 11:44 Miscellaneous Information (Discontinue FINANCIAL RETIREMENT PLAN SPECIALIST) 1 ea TODAY@0600 N/A 03/10/17 06:00 03/10/17 06:01 Naloxone HCl (Narcan Inj) 0.1 mg Q5M PRN IV 03/09/17 11:45 03/10/17 06:00 Hydromorphone HCl 25 mg 25 mg PRN PRN IV 03/09/17 11:45 03/10/17 06:00 03/09/17 13:04 25 MG Sodium Chloride (Nss 1000ml) 1,000 ml @ 15 mls/hr Q24H IV 03/09/17 11:37 03/10/17 06:00 Aspirin (Ecotrin Tab) 81 mg HS PO 03/09/17 21:00 04/08/17 20:59 EZETIMIBE (Zetia Tab) 10 mg HS PO 03/09/17 21:00 04/08/17 20:59 Pantoprazole Sodium (Protonix Tab) 40 mg QAM PO 03/10/17 09:00 04/09/17 08:59 Review of Systems 10 system review performed and negative unless noted in HPI or below Physical Exam Date Time Temp Pulse Resp B/P Pulse Ox O2 Delivery O2 Flow Rate FiO2 03/09/17 14:03 36.3 83 19 147/87 100 Nasal Cannula 4.0 03/09/17 13:30 36.1 66 20 151/67 98 Nasal Cannula 4.0 03/09/17 13:00 Nasal Cannula 4.0 03/09/17 13:00 99 Nasal Cannula 4.0 03/09/17 13:00 36.4 99 16 142/81 99 Nasal Cannula 4.0 03/09/17 12:51 85 15 03/09/17 12:51 84 15 99 03/09/17 12:50 146/67 03/09/17 12:46 88 13 03/09/17 12:46 90 13 99 03/09/17 12:45 136/69 03/09/17 12:41 90 14 99 03/09/17 12:41 89 14 03/09/17 12:40 150/79 03/09/17 12:36 81 17 03/09/17 12:36 78 17 100 03/09/17 12:35 36.9 03/09/17 12:32 83 17 03/09/17 12:32 82 17 99 03/09/17 12:30 151/67 03/09/17 12:27 92 14 03/09/17 12:27 92 14 100 03/09/17 12:25 153/70 03/09/17 12:22 84 13 03/09/17 12:22 84 13 100 03/09/17 12:20 150/69 03/09/17 12:17 87 18 100 03/09/17 12:17 87 18 03/09/17 12:15 158/76 03/09/17 12:12 83 20 100 03/09/17 12:12 84 20 03/09/17 12:10 157/77 03/09/17 12:07 80 15 100 03/09/17 12:07 80 15 03/09/17 12:05 Nasal Cannula 4 03/09/17 12:05 167/83 03/09/17 12:02 90 11 03/09/17 12:02 91 11 99 03/09/17 12:00 171/83 03/09/17 11:57 86 13 03/09/17 11:57 87 13 100 03/09/17 11:56 166/89 03/09/17 11:55 153/128 03/09/17 11:52 36.3 92 16 166/80 98 Mask 10 03/09/17 08:49 97 Room Air 03/09/17 08:46 36.9 113 20 126/92 General Appearance: no apparent distress Head: normocephalic Eyes: EOMI Neck: no JVD Respiratory/Chest: lungs clear Cardiovascular: regular rate, rhythm Abdomen/GI: normal bowel sounds, non tender, soft Extremities/Musculoskelatal: no calf tenderness, no pedal edema Neurologic/Psych: alert, oriented x 3 (alert and answering questions appropriately) Skin: warm/dry Assessment & Plan 76-year-old female who underwent a lumbar decompression today with Dr. Ross -pain management, DVT prophylaxis, PT per primary team -Follow CBC GERD -Continue pantoprazole 40 mg daily Hyperlipidemia -Continue Zetia 10 mg daily Family history of coronary artery disease -Restart aspirin 81 mg daily when okay with primary team I also recommend starting the patient on Colace 100 mg po BID scheduled in addition to MiraLAX 1 packet daily as needed for constipation Thank you for this consultation. We will continue to follow. Attending Consult Note & Attestation: Pt seen/examined, chart reviewed, and care plan d/w EKATERINA Mccarthy. I agree w/ the finney components of her consult documentation. 76yo female who underwent elective lumbar spine surgery today by Dr. Ross. Post-op denied any sob, chest pain, abd pain. Eating well w/o nausea/emesis. PMH, PSH, allergies, meds, sochx, famhx, ros - reviewed VSS exam gen - NAD, a/o x 3 neck - no JVD heart - RRR, s1, s2 lungs - CTA b/l abd - soft, NT ext - no edema A/P: 1. s/p lumbar decompression/fusion 2. GERD - controlled 3. hyperlipidemia will cont to follow Franklin CARRERA MD
[2017-03-09] MEDS ORDERED: HydrALAZINE HCL 20 MG/ML VIAL IV. PRN (14:45)
--- NOTE | 2017-03-09 18:12 | Anesthesiology Progress Note ---
Anesthesia Post Op Note Date & Time Mar 09, 2017 at 18:12 Vital Signs Pain Intensity: 4 Vital Signs Past 12 Hours Date Time Temp Pulse Resp B/P Pulse Ox O2 Delivery O2 Flow Rate FiO2 03/09/17 15:58 36.7 80 16 127/84 100 Nasal Cannula 2.0 03/09/17 15:00 36.3 66 18 129/77 91 Nasal Cannula 4.0 03/09/17 14:03 36.3 83 19 147/87 100 Nasal Cannula 4.0 03/09/17 13:30 36.1 66 20 151/67 98 Nasal Cannula 4.0 03/09/17 13:00 Nasal Cannula 4.0 03/09/17 13:00 99 Nasal Cannula 4.0 03/09/17 13:00 36.4 99 16 142/81 99 Nasal Cannula 4.0 03/09/17 12:51 85 15 03/09/17 12:51 84 15 99 03/09/17 12:50 146/67 03/09/17 12:46 88 13 03/09/17 12:46 90 13 99 03/09/17 12:45 136/69 03/09/17 12:41 90 14 99 03/09/17 12:41 89 14 03/09/17 12:40 150/79 03/09/17 12:36 81 17 03/09/17 12:36 78 17 100 03/09/17 12:35 36.9 03/09/17 12:32 83 17 03/09/17 12:32 82 17 99 03/09/17 12:30 151/67 03/09/17 12:27 92 14 03/09/17 12:27 92 14 100 03/09/17 12:25 153/70 03/09/17 12:22 84 13 03/09/17 12:22 84 13 100 03/09/17 12:20 150/69 03/09/17 12:17 87 18 100 03/09/17 12:17 87 18 03/09/17 12:15 158/76 03/09/17 12:12 83 20 100 03/09/17 12:12 84 20 03/09/17 12:10 157/77 03/09/17 12:07 80 15 100 03/09/17 12:07 80 15 03/09/17 12:05 Nasal Cannula 4 03/09/17 12:05 167/83 03/09/17 12:02 90 11 03/09/17 12:02 91 11 99 03/09/17 12:00 171/83 03/09/17 11:57 86 13 03/09/17 11:57 87 13 100 03/09/17 11:56 166/89 03/09/17 11:55 153/128 03/09/17 11:52 36.3 92 16 166/80 98 Mask 10 03/09/17 08:49 97 Room Air 03/09/17 08:46 36.9 113 20 126/92 Notes Mental Status: alert / awake / arousable, participated in evaluation Pt Amnestic to Procedure: Yes Nausea / Vomiting: adequately controlled Pain: adequately controlled Airway Patency, RR, SpO2: stable & adequate BP & HR: stable & adequate Hydration State: stable & adequate Anesthetic Complications: no major complications apparent
[2017-03-09] MEDS: CEFAZOLIN IV 1,000 MG in DEXTROSE 5% 50ML 50 ML IV SCH (18:54)
[2017-03-09] MEDS: DEXAMETHASONE INJ 6 MG in SYRINGE 0 ML IV SCH (18:54)
[2017-03-09] MEDS: DOCUSATE SODIUM/SENNA 50/8.6MG TAB PO SCH (20:47)
[2017-03-09] MEDS: ASPIRIN 81 MG ECTAB PO SCH (20:47)
[2017-03-09] MEDS: EZETIMIBE 10MG TAB PO SCH (20:47)
[2017-03-10] MEDS: DEXAMETHASONE INJ 6 MG in SYRINGE 0 ML IV SCH ×2 (01:37→09:52)
[2017-03-10] MEDS: CEFAZOLIN IV 1,000 MG in DEXTROSE 5% 50ML 50 ML IV SCH (01:37)
[2017-03-10] MEDS: SODIUM CHLORIDE 0.9% 1000ML 1,000 ML IV SCH (01:37)
[2017-03-10 03:15] VITALS: BP 114/63; PULSE 90; TEMP 36.7; O2SAT 95
[2017-03-10] MEDS ORDERED: DC PCA SCH (06:00)
[2017-03-10 06:06] LABS: COMPLETE YES; HEMATOCRIT 35.7 % (37-47); IG% 0.3 %; LYMPH % 6.1 %; LYMPH ABS # 0.61 K/uL (1.2-3.4); MEAN CELL VOLUME 85.2 fL (80-100); MEAN CORPUSCULAR HEMOGLOBIN 28.4 pg (25-34); MEAN CORPUSCULAR HGB CONC 33.3 g/dl (32-36); MEAN PLATELET VOLUME 9.9 fL (7.4-10.4); MONO % 3.5 %; NEUT % 90.1 %; PLATELET COUNT 224 K/uL (130-400); RED BLOOD COUNT 4.19 M/uL (4.2-5.4); WHITE BLOOD COUNT 10.07 K/uL (4.8-10.8)
[2017-03-10] MEDS ORDERED: NURSING VERBAL MED ORDER ONE (06:15)
[2017-03-10 06:44] LABS: BUN/CREATININE RATIO 11.4 (10-20); CALCIUM 8.3 mg/dl (8.5-10.1); CREATININE 0.66 mg/dl (0.60-1.20); POTASSIUM 4.2 mmol/L (3.5-5.1)
[2017-03-10 08:13] VITALS: BP 123/68; PULSE 71; TEMP 36.9; O2SAT 99
--- NOTE | 2017-03-10 08:37 | PROGRESS NOTE ---
DATE: 03/10/2017 Postop day 1. Back pain controlled. Leg pain improved. Significant pain to the right greater trochanter buttock however. Vital signs stable. T-max 36.9. ANGEL drained 130 mL last shift. Hematocrit this a.m. is 35.7. On exam, she has good strength to testing. Is markedly tender to palpation over the right greater trochanter. ASSESSMENT: Status post lumbar decompression and fusion. PLAN: At this time, will initiate physical therapy, hopefully be transferred to chair and ambulation. She does understand she has a significant trochanteric bursitis that is compounding her radiculopathy. We may need to consider [facility] for discharge.
[2017-03-10] MEDS: PANTOprazole SOD 40 MG TAB PO SCH (08:56)
[2017-03-10] MEDS: OXYCODONE HCL IR 5 MG TAB (IMMEDIATE RELEASE) PO PRN ×3 (08:57→19:33)
--- NOTE | 2017-03-10 08:57 | Anesthesiology Progress Note ---
Anesthesia Post Op Note Date & Time Mar 10, 2017 at 08:56 Vital Signs Pain Intensity: 6.0 Vital Signs Past 12 Hours Date Time Temp Pulse Resp B/P Pulse Ox O2 Delivery O2 Flow Rate FiO2 03/10/17 08:13 36.9 71 16 123/68 99 Room Air 03/10/17 07:15 Room Air 03/10/17 03:15 36.7 90 16 114/63 95 Room Air 03/09/17 23:35 Room Air 03/09/17 23:29 36.4 83 16 118/72 97 Room Air Notes Mental Status: alert / awake / arousable, participated in evaluation Pt Amnestic to Procedure: Yes Nausea / Vomiting: adequately controlled Pain: adequately controlled Airway Patency, RR, SpO2: stable & adequate BP & HR: stable & adequate Hydration State: stable & adequate Anesthetic Complications: no major complications apparent
[2017-03-10] MEDS: HYDROmorphone INJ 0.5 MG/0.5 ML SYR IV PRN ×3 (09:52→20:21)
[2017-03-10 11:02] VITALS: BP 111/77; PULSE 89; TEMP 36.9; O2SAT 97
[2017-03-10 11:57] VITALS: BP 134/72; PULSE 104; O2SAT 99
--- NOTE | 2017-03-10 14:43 | Hospitalist Progress Note ---
Hospitalist Progress Note Date of Service Mar 10, 2017. (Molly Mccarthy PA-C) Subjective Pt evaluation today including: conversation w/ patient, physical exam, chart review, lab review, review of inpatient medication list Patient complaining of severe back pain. Radiates down the back of her right leg. She does not think that the pain medicine is helping. She has not yet passed gas since the surgery. She denies any nausea. No dominant pain. She is tolerating her diet. She denies any chest pain, difficulty breathing or chest pressure. No fever or chills. Additional Comments: 6 system review negative. Please see pertinent positives in the history of present illness section. (Molly Mccarthy PA-C) Objective Vital Signs Date Time Temp Pulse Resp B/P Pulse Ox O2 Delivery O2 Flow Rate FiO2 03/10/17 11:57 104 99 03/10/17 11:02 36.9 89 16 111/77 97 Room Air 03/10/17 08:13 36.9 71 16 123/68 99 Room Air 03/10/17 07:15 Room Air 03/10/17 03:15 36.7 90 16 114/63 95 Room Air 03/09/17 23:35 Room Air 03/09/17 23:29 36.4 83 16 118/72 97 Room Air 03/09/17 20:02 36.3 87 18 135/78 98 Room Air 03/09/17 19:31 36.7 91 18 125/77 97 Room Air 03/09/17 15:58 36.7 80 16 127/84 100 Nasal Cannula 2.0 03/09/17 15:00 36.3 66 18 129/77 91 Nasal Cannula 4.0 (Molly Mccarthy PA-C) Physical Exam General Appearance: + mild distress (in some discomfort.) Neck: no JVD Respiratory/Chest: lungs clear Cardiovascular: regular rate, rhythm Abdomen: non tender, soft, + pertinent finding (bowel sounds present, but hypoactive) Extremities: non-tender, no pedal edema Neurologic/Psychiatric: oriented x 3 Skin: warm/dry (Molly Mccarthy PA-C) Laboratory Results 03/10/17 05:50 Red Blood Count 4.19, Mean Corpuscular Volume 85.2, Mean Corpuscular Hemoglobin 28.4, Mean Corpuscular Hemoglobin Concent 33.3, Mean Platelet Volume 9.9, Neutrophils (%) (Auto) 90.1, Lymphocytes (%) (Auto) 6.1, Monocytes (%) (Auto) 3.5, Eosinophils (%) (Auto) 0.0, Basophils (%) (Auto) 0.0, Neutrophils # (Auto) 9.08, Lymphocytes # (Auto) 0.61, Monocytes # (Auto) 0.35, Eosinophils # (Auto) 0.00, Basophils # (Auto) 0.00 03/10/17 05:50 Test 03/10/17 05:50 White Blood Count 10.07 K/uL (4.8-10.8) Red Blood Count 4.19 M/uL (4.2-5.4) Hemoglobin 11.9 g/dL (12.0-16.0) Hematocrit 35.7 % (37-47) Mean Corpuscular Volume 85.2 fL (80-100) Mean Corpuscular Hemoglobin 28.4 pg (25-34) Mean Corpuscular Hemoglobin Concent 33.3 g/dl (32-36) Platelet Count 224 K/uL (130-400) Mean Platelet Volume 9.9 fL (7.4-10.4) Neutrophils (%) (Auto) 90.1 % Lymphocytes (%) (Auto) 6.1 % Monocytes (%) (Auto) 3.5 % Eosinophils (%) (Auto) 0.0 % Basophils (%) (Auto) 0.0 % Neutrophils # (Auto) 9.08 K/uL (1.4-6.5) Lymphocytes # (Auto) 0.61 K/uL (1.2-3.4) Monocytes # (Auto) 0.35 K/uL (0.11-0.59) Eosinophils # (Auto) 0.00 K/uL (0-0.5) Basophils # (Auto) 0.00 K/uL (0-0.2) RDW Standard Deviation 40.7 fL (36.4-46.3) RDW Coefficient of Variation 13.2 % (11.5-14.5) Immature Granulocyte % (Auto) 0.3 % Immature Granulocyte # (Auto) 0.03 K/uL (0.00-0.02) Anion Gap 6.0 mmol/L (3-11) Est Creatinine Clear Calc Drug Dose 60.0 ml/min Estimated GFR () 99.5 Estimated GFR (Non- 85.8 BUN/Creatinine Ratio 11.4 (10-20) Calcium Level 8.3 mg/dl (8.5-10.1) Last 24 Hours Test 03/10/17 05:50 White Blood Count 10.07 K/uL Red Blood Count 4.19 M/uL Hemoglobin 11.9 g/dL Hematocrit 35.7 % Mean Corpuscular Volume 85.2 fL Mean Corpuscular Hemoglobin 28.4 pg Mean Corpuscular Hemoglobin Concent 33.3 g/dl Platelet Count 224 K/uL Mean Platelet Volume 9.9 fL Neutrophils (%) (Auto) 90.1 % Lymphocytes (%) (Auto) 6.1 % Monocytes (%) (Auto) 3.5 % Eosinophils (%) (Auto) 0.0 % Basophils (%) (Auto) 0.0 % Neutrophils # (Auto) 9.08 K/uL Lymphocytes # (Auto) 0.61 K/uL Monocytes # (Auto) 0.35 K/uL Eosinophils # (Auto) 0.00 K/uL Basophils # (Auto) 0.00 K/uL RDW Standard Deviation 40.7 fL RDW Coefficient of Variation 13.2 % Immature Granulocyte % (Auto) 0.3 % Immature Granulocyte # (Auto) 0.03 K/uL Sodium Level 141 mmol/L Potassium Level 4.2 mmol/L Chloride Level 109 mmol/L Carbon Dioxide Level 26 mmol/L Anion Gap 6.0 mmol/L Blood Urea Nitrogen 8 mg/dl Creatinine 0.66 mg/dl Est Creatinine Clear Calc Drug Dose 60.0 ml/min Estimated GFR () 99.5 Estimated GFR (Non- 85.8 BUN/Creatinine Ratio 11.4 Random Glucose 145 mg/dl Calcium Level 8.3 mg/dl (Molly Mccarthy PA-C) Assessment and Plan 76-year-old female who underwent a lumbar decompression 03/[address] Ross. Pain poorly controlled -pain med adjustments per primary team GERD-stable -Continue pantoprazole 40 mg daily Hyperlipidemia -Continue Zetia 10 mg daily Family history of coronary artery disease -Restart aspirin 81 mg daily when okay with primary team Possible starts of an ileus given no flatus yet -senna/docusate 2 tabs HS, miralax q 6 hr, prn dulcolax and enemas ordered Thank you for this consultation. We will continue to follow. (Molly Mccarthy, NAVIN) Reviewed: Pt Seen/Exam by Me (Abby Fernandez MD) History Physician [employer] Supervision Note: I interviewed and examined the patient. Discussed with EKATERINA Mccarthy and agree with findings and plan as documented in the note. Any exceptions or clarifications are listed here: Patient feeling better. Still having some pain right over her right greater trochanter which she was told by Dr. Ross was bursitis. She was wondering if she can have an injection for this while she is in the hospital so that she is able to tolerate physical therapy. Vitals reviewed No acute distress, AAO 3 RRR, no MGR CTAB, no WCR, breathing unlabored Extremities-positive exquisite tenderness palpation over right greater trochanter, no erythema This patient is a 76-year-old female here status post lumbar decompression with lumbar radiculopathy, right trochanteric bursitis, also with a history of hyperlipidemia, GERD. Advised her to ask orthopedics about steroid injection for the trochanteric bursitis prior to discharge -PT/OT evaluations -Other conditions stable Documented By: Abby Fernandez (Abby Fernandez MD)
[2017-03-10 15:18] VITALS: BP 109/64; PULSE 79; TEMP 37.1; O2SAT 95
[2017-03-10] MEDS: LORAZEPAM 0.5 MG TAB PO PRN (16:08)
[2017-03-10] MEDS: EZETIMIBE 10MG TAB PO SCH (20:21)
[2017-03-10] MEDS: ASPIRIN 81 MG ECTAB PO SCH (20:21)
[2017-03-10] MEDS: DOCUSATE SODIUM/SENNA 50/8.6MG TAB PO SCH (20:21)
[2017-03-10 23:12] VITALS: BP 114/70; PULSE 91; TEMP 36.7; O2SAT 97
[2017-03-11] MEDS: LORAZEPAM 0.5 MG TAB PO PRN ×3 (00:02→20:25)
[2017-03-11] MEDS: OXYCODONE HCL IR 5 MG TAB (IMMEDIATE RELEASE) PO PRN ×5 (00:03→18:30)
[2017-03-11] MEDS: POLYETHYLENE (MIRALAX) 17 GM PACK PO SCH ×4 (06:09→23:39)
[2017-03-11 07:26] VITALS: BP 134/74; PULSE 89; TEMP 36.9; O2SAT 96
[2017-03-11] MEDS: PANTOprazole SOD 40 MG TAB PO SCH (08:22)
[2017-03-11 09:11] LABS: HEMATOCRIT 40.5 % (37-47)
[2017-03-11] MEDS: HYDROmorphone INJ 0.5 MG/0.5 ML SYR IV PRN ×3 (10:31→23:16)
--- NOTE | 2017-03-11 12:18 | Hospitalist Progress Note ---
Hospitalist Progress Note Date of Service Mar 11, 2017. (Molly Mccarthy PA-C) Subjective Pt evaluation today including: conversation w/ patient, physical exam, chart review, lab review, review of inpatient medication list Patient tearful and worried that she is not going to start feeling better. She still complains of back pain particularly with movement. Still complaining of right lateral hip pain. She is also complaining of right leg pain down to the anterior aspect of her right foot. She also has some muscle cramps in her right foot. She denies any nausea. She is not eating much. She has been passing gas but no bowel movements yet. Denies any dizziness, chest pain or pressure, shortness of breath, fever or chills. Additional Comments: 6 system review negative. Please see pertinent positives in the history of present illness section. (Molly Mccarthy PA-C) Objective Vital Signs Date Time Temp Pulse Resp B/P Pulse Ox O2 Delivery O2 Flow Rate FiO2 03/11/17 07:45 Room Air 03/11/17 07:26 36.9 89 16 134/74 96 Room Air 03/10/17 23:55 Room Air 03/10/17 23:12 36.7 91 16 114/70 97 Room Air 03/10/17 16:30 Room Air 03/10/17 15:18 37.1 79 16 109/64 95 Room Air 03/10/17 11:57 104 99 03/10/17 11:02 36.9 89 16 111/77 97 Room Air (Molly Mccarthy PA-C) Physical Exam General Appearance: + mild distress (anxious. Also appears to be in pain.) Eyes: EOMI Neck: no JVD Respiratory/Chest: lungs clear Cardiovascular: regular rate, rhythm Abdomen: normal bowel sounds, non tender, soft Extremities: no pedal edema, + pertinent finding (tenderness to palpation noted over the lateral aspect of the right hip.) Neurologic/Psychiatric: no motor/sensory deficits, oriented x 3 Skin: warm/dry (Molly Mccarthy PA-C) Laboratory Results Last 24 Hours Test 03/11/17 08:57 Hemoglobin 13.5 g/dL Hematocrit 40.5 % (Molly Mccarthy PA-C) Assessment and Plan 76-year-old female who underwent a lumbar decompression 4/[address] Ross. Pain poorly controlled -pt has IV dilaudid and po oxy available -consider adding a muscle relaxant?-->will defer to primary team R hip pain possibly bursitis -pt requesting steroid injection during admission ?anxiety and depression-pt concerned that she is not improving. -continue low dose ativan PRN -she needs encouragement that she will eventually improve, just not overnight Acute blood loss anemia-Hgb stable at 13.5 GERD-stable -Continue pantoprazole 40 mg daily Hyperlipidemia -Continue Zetia 10 mg daily Family history of coronary artery disease -ASA 81 mg on board Constipation-now passing gas-given Miralax this AM -senna/docusate 2 tabs HS, miralax q 6 hr, prn dulcolax and enemas ordered DISPO -pt would probably do better at rehab as opposed to d/c home -f/u PT/OT Thank you for this consultation. We will continue to follow. (Molly Mccarthy, NAVIN) Reviewed: Pt Seen/Exam by Me (Abby Fernandez MD) History Physician Manhole Builder Supervision Note: I interviewed and examined the patient. Discussed with EKATERINA Mccarthy and agree with findings and plan as documented in the note. Any exceptions or clarifications are listed here: Still having some pain right over her right greater trochanter. When I walked in the room, she was taking spoonfuls of her lunch by mouth while lying flat on her back. I advised her this was not safe and she stated that she's been eating like this for 2 months as sitting in a chair for more than a few minutes causes her significant pain. Vitals reviewed No acute distress, AAO 3 RRR, no MGR CTAB, no WCR, breathing unlabored Extremities-positive exquisite tenderness palpation over right greater trochanter, no erythema This patient is a 76-year-old female here status post lumbar decompression with lumbar radiculopathy, right trochanteric bursitis, also with a history of hyperlipidemia, GERD. Advised her to ask orthopedics about steroid injection for the trochanteric bursitis prior to discharge -PT/OT evaluations-she is now planning on going to acute rehabilitation -Asked nursing staff to provide assistance with meals to help feed her with the head of the bed at least at 30's of that she does not aspirate -Other conditions stable Documented By: Abby Fernandez (Abby Fernandez MD)
[2017-03-11 15:30] VITALS: BP 130/74; PULSE 106; TEMP 36.7; O2SAT 96
--- NOTE | 2017-03-11 15:36 | PROGRESS NOTE ---
DATE: 03/11/2017 DATE: 03/11/2017. SUBJECTIVE: Patient's back pain is tolerable, still significant right trochanteric discomfort. Vital signs stable. T-max 36.9. ANGEL drain decreasing 175 today. Hematocrit stable at 40.5. OBJECTIVE: On exam she has negative log roll but still exquisite tenderness to palpation of the right trochanteric region. She has excellent plantar flexion, dorsiflexion and quadriceps. ASSESSMENT: Status post lumbar decompression and fusion. PLAN: At this time, will maintain the ANGEL drain another day. I will obtain an MRI of the pelvis to rule out any intraarticular hip issue or occult fracture that could be accounting for symptom complex. We are also considering a trochanteric bursa injection tomorrow.
--- NOTE | 2017-03-11 19:50 | DIAGNOSTIC IMAGING REPORT ---
PELVIS AND RIGHT HIP WITHOUT CONTRAST (MRI) HISTORY: Right hip pain. TECHNIQUE: Multiplanar multisequence MRI of the pelvis and right hip were performed without the use of contrast. COMPARISON STUDY: None. FINDINGS: No fracture or dislocation within the pelvis or hips. Mild cartilage space narrowing within the bilateral hips consistent with degenerative change. No significant hip effusions. Posterior decompression and fusion at the lumbar sacral spine. This is only partially imaged on this study. There is a Queen catheter within the decompressed bladder. Trace presacral edema. This also mild subcutaneous and deep edema within the bilateral hips. IMPRESSION: 1. No fracture or dislocation within the pelvis or hips. 2. Mild bilateral hip osteoarthritis. 3. Posterior fusion hardware at the lumbosacral spine which is only partially imaged on this study. 4. Mild subcutaneous and deep soft tissue edema within the bilateral hips as well as trace presacral edema. This favors mild body wall edema rather than a traumatic process. Electronically signed by: German Lowry M.D. 03/11/2017 7:48 PM Dictated Date/Time: 03/11/2017 7:42 PM
[2017-03-11] MEDS: ASPIRIN 81 MG ECTAB PO SCH (20:26)
[2017-03-11] MEDS: EZETIMIBE 10MG TAB PO SCH (20:26)
[2017-03-11] MEDS: DOCUSATE SODIUM/SENNA 50/8.6MG TAB PO SCH (20:26)
[2017-03-11 23:28] VITALS: BP 107/71; PULSE 92; TEMP 36.8; O2SAT 95
[2017-03-12] MEDS: OXYCODONE HCL IR 5 MG TAB (IMMEDIATE RELEASE) PO PRN ×5 (00:41→23:40)
[2017-03-12] MEDS: ACETAMINOPHEN 500 MG TAB PO PRN (00:42)
[2017-03-12] MEDS ORDERED: CYCLOBENZAPRINE HCL 5 MG TAB PO ONE (02:00)
[2017-03-12] MEDS: POLYETHYLENE (MIRALAX) 17 GM PACK PO SCH ×4 (05:49→23:35)
[2017-03-12 08:13] VITALS: BP 132/75; PULSE 94; TEMP 36.8; O2SAT 97
[2017-03-12] MEDS: HYDROmorphone INJ 0.5 MG/0.5 ML SYR IV PRN (08:14)
[2017-03-12] MEDS: PANTOprazole SOD 40 MG TAB PO SCH (08:14)
[2017-03-12] MEDS ORDERED: BISACODYL 10 MG SUPP PR STA (08:44)
[2017-03-12 09:16] LABS: BASO % 0.6 %; BASO ABS # 0.05 K/uL (0-0.2); COMPLETE YES; EOS % 1.9 %; IG% 0.4 %; LYMPH % 33.8 %; LYMPH ABS # 2.78 K/uL (1.2-3.4); MEAN CELL VOLUME 85.7 fL (80-100); MEAN CORPUSCULAR HGB CONC 33.8 g/dl (32-36); MEAN PLATELET VOLUME 10.1 fL (7.4-10.4); NEUT % 51.3 %; PLATELET COUNT 266 K/uL (130-400); RED BLOOD COUNT 4.55 M/uL (4.2-5.4); WHITE BLOOD COUNT 8.23 K/uL (4.8-10.8)
[2017-03-12 09:51] LABS: BUN/CREATININE RATIO 10.3 (10-20); CALCIUM 9.3 mg/dl (8.5-10.1); CREATININE 0.71 mg/dl (0.60-1.20); MAGNESIUM 2.3 mg/dl (1.8-2.4)
[2017-03-12] MEDS: LORAZEPAM 0.5 MG TAB PO PRN (10:06)
[2017-03-12] MEDS: CYCLOBENZAPRINE HCL 5 MG TAB PO PRN (13:05)
[2017-03-12] MEDS ORDERED: ETHYL CHLORIDE AER SPR 100 ML CAN EXT ONE (13:45)
[2017-03-12] MEDS ORDERED: LIDOCAINE/EPINEPHRINE 2% 1:200,000 20 ML SDV INFIL ONE (13:45)
[2017-03-12] MEDS ORDERED: METHYLPREDNISOLONE ACETATE 80 MG/ML VIAL IA ONE (13:45)
--- NOTE | 2017-03-12 14:02 | Hospitalist Progress Note ---
Hospitalist Progress Note Date of Service Mar 12, 2017. (Molly Mccarthy PA-C) Subjective Pt evaluation today including: conversation w/ patient, physical exam, chart review, lab review, review of inpatient medication list Patient reports continued severe pain particularly in the right lateral hip. She also complains of back pain. This is significantly worse with sitting up or any movement. She denies any paresthesias. Still no bowel movement. She is passing gas. No nausea. Still very upset that she is no better. Additional Comments: 6 system review negative. Please see pertinent positives in the history of present illness section. (Molly Mccarthy PA-C) Objective Vital Signs Date Time Temp Pulse Resp B/P Pulse Ox O2 Delivery O2 Flow Rate FiO2 03/12/17 08:15 Room Air 03/12/17 08:13 36.8 94 16 132/75 97 Room Air 03/11/17 23:35 Room Air 03/11/17 23:28 36.8 92 16 107/71 95 Room Air 03/11/17 15:30 36.7 106 18 130/74 96 Room Air 03/11/17 15:19 Room Air (Molly Mccarthy PA-C) Physical Exam General Appearance: + mild distress (tearful) Neck: no JVD Respiratory/Chest: lungs clear Cardiovascular: regular rate, rhythm Abdomen: non tender, soft, + distended (mildly distended), + pertinent finding (bowel sounds present, but hypoactive.) Extremities: no pedal edema, + pertinent finding (point tenderness to light palpation over the right lateral hip. ) Neurologic/Psychiatric: no motor/sensory deficits, oriented x 3 Skin: warm/dry (Molly Mccarthy PA-C) Laboratory Results 03/12/17 09:02 Red Blood Count 4.55, Mean Corpuscular Volume 85.7, Mean Corpuscular Hemoglobin 29.0, Mean Corpuscular Hemoglobin Concent 33.8, Mean Platelet Volume 10.1, Neutrophils (%) (Auto) 51.3, Lymphocytes (%) (Auto) 33.8, Monocytes (%) (Auto) 12.0, Eosinophils (%) (Auto) 1.9, Basophils (%) (Auto) 0.6, Neutrophils # (Auto ) 4.22, Lymphocytes # (Auto) 2.78, Monocytes # (Auto) 0.99, Eosinophils # (Auto ) 0.16, Basophils # (Auto) 0.05 03/12/17 09:02 Test 03/12/17 09:02 White Blood Count 8.23 K/uL (4.8-10.8) Red Blood Count 4.55 M/uL (4.2-5.4) Hemoglobin 13.2 g/dL (12.0-16.0) Hematocrit 39.0 % (37-47) Mean Corpuscular Volume 85.7 fL (80-100) Mean Corpuscular Hemoglobin 29.0 pg (25-34) Mean Corpuscular Hemoglobin Concent 33.8 g/dl (32-36) Platelet Count 266 K/uL (130-400) Mean Platelet Volume 10.1 fL (7.4-10.4) Neutrophils (%) (Auto) 51.3 % Lymphocytes (%) (Auto) 33.8 % Monocytes (%) (Auto) 12.0 % Eosinophils (%) (Auto) 1.9 % Basophils (%) (Auto) 0.6 % Neutrophils # (Auto) 4.22 K/uL (1.4-6.5) Lymphocytes # (Auto) 2.78 K/uL (1.2-3.4) Monocytes # (Auto) 0.99 K/uL (0.11-0.59) Eosinophils # (Auto) 0.16 K/uL (0-0.5) Basophils # (Auto) 0.05 K/uL (0-0.2) RDW Standard Deviation 42.7 fL (36.4-46.3) RDW Coefficient of Variation 13.7 % (11.5-14.5) Immature Granulocyte % (Auto) 0.4 % Immature Granulocyte # (Auto) 0.03 K/uL (0.00-0.02) Anion Gap 4.0 mmol/L (3-11) Est Creatinine Clear Calc Drug Dose 55.7 ml/min Estimated GFR () 95.9 Estimated GFR (Non- 82.7 BUN/Creatinine Ratio 10.3 (10-20) Calcium Level 9.3 mg/dl (8.5-10.1) Magnesium Level 2.3 mg/dl (1.8-2.4) Last 24 Hours Test 03/11/17 08:57 03/12/17 08:34 Hemoglobin 13.5 g/dL Hematocrit 40.5 % (Molly Mccarthy PA-C) Diagnostic Results MRI pelvis/R hip IMPRESSION: 1. No fracture or dislocation within the pelvis or hips. 2. Mild bilateral hip osteoarthritis. 3. Posterior fusion hardware at the lumbosacral spine which is only partially imaged on this study. 4. Mild subcutaneous and deep soft tissue edema within the bilateral hips as well as trace presacral edema. This favors mild body wall edema rather than a traumatic process. (Molly Mccarthy PA-C) Assessment and Plan 76-year-old female who underwent a lumbar decompression 03/[address] Ross. Pain continues to be a problem -pt has IV dilaudid and po oxy available -one dose of Flexeril given. Consider giving PRN as she reports it helps -also recommend Lidocaine patch to R hip if no steroid injection is done R hip pain -MRI pelvis shows no fracture -primary team contemplating steroid injection for bursitis Mild tachycardia-likely secondary to pain/anxiety. Labs reviewed and stable. BP stable anxiety and depression-pt concerned that she is not improving. -continue low dose ativan PRN -consider adding an antidepressant. Will continue to follow Acute blood loss anemia-Hgb stable at 13 GERD-stable -Continue pantoprazole 40 mg daily Hyperlipidemia -Continue Zetia 10 mg daily Family history of coronary artery disease -ASA 81 mg on board Constipation-now passing gas-no BMs yet -ordered dulcolax supp today -senna/docusate 2 tabs HS, miralax q 6 hr, prn dulcolax and enemas ordered DISPO -recommending inpt rehab Thank you for this consultation. We will continue to follow. (Molly Mccarthy PA-C) Reviewed: Pt Seen/Exam by Me (Abby Fernandez MD) History Physician Kettle Girl Supervision Note: I interviewed and examined the patient. Discussed with EKATERINA Mccarthy and agree with findings and plan as documented in the note. Any exceptions or clarifications are listed here: Still having some pain right over her right greater trochanter. Was out of bed and ambulating better today Vitals reviewed No acute distress, AAO 3 RRR, no MGR CTAB, no WCR, breathing unlabored Extremities-positive exquisite tenderness palpation over right greater trochanter, no erythema This patient is a 76-year-old female here status post lumbar decompression with lumbar radiculopathy, right trochanteric bursitis, also with a history of hyperlipidemia, GERD. Advised her to ask orthopedics about steroid injection for the trochanteric bursitis prior to discharge -PT/OT evaluations-she is now planning on going to acute rehabilitation -Asked nursing staff to provide assistance with meals to help feed her with the head of the bed at least at 30's of that she does not aspirate -Other conditions stable Documented By: Abby Fernandez (Abby Fernandez MD)
[2017-03-12 15:20] VITALS: BP 136/82; PULSE 105; TEMP 37.1; O2SAT 96
[2017-03-12] MEDS ORDERED: RXC5 PO (16:09)
--- NOTE | 2017-03-12 16:09 | Discharge Instructions ---
Discharge Instructions Date of Service Mar 12, 2017. Admission Reason for Admission: Lumbar Spinal Stenosis Discharge Discharge Diagnosis / Problem: stenosis Discharge Goals Goal(s): Improve function Activity Recommendations Activity Limitations: per Instructions/Follow-up section . Instructions / Follow-Up Instructions / Follow-Up ACTIVITY RECOMMENDATIONS: SELF CARE INSTRUCTIONS AFTER THORACIC/LUMBAR FUSIONS 1. You may walk to your tolerance. It is good exercise for your legs and back. Expect some back and intermittent leg aches and pains. 2. You may perform "counter-top" level activities (make a sandwich, luis m with a project, etc.). 3. No bending or lifting of more than 10 pounds or back twisting of any nature (roll like a log when turning in bed). 4. You may ride in a car for 20-30 minutes at a time. No driving until after your first visit with your doctor. 5. Frequent changes of position and restricting sitting to 30 minutes at a time will help limit the amount of back spasms and stiffness you may experience. 6. You may discontinue the use of ambulatory aids (cane, crutches, etc.) once your strength and confidence allow. 7. You may technical marketing consultant the shower and let water strike your incision when you arrive home at least once daily. Do not take a tub bath, sit in a hot tub or go into a swimming pool until after your first recheck in the office. SPECIAL CARE INSTRUCTIONS: VERY IMPORTANT TO READ AND REVIEW A. Your surgical incision has been closed with a cosmetic suture under the skin that will dissolve in about 6 weeks. In 14 days, you can use a pair of clean scissors and cut the suture that is left outside of the skin at the ends of your incision. 1. The small skin tapes can be removed 7 days after surgery if they have not fallen off by that point. 2. You may keep the wound open to air as much as possible to promote healing after post-op day number 5 unless told otherwise by your doctor. 3. If you think the wound looks like it is becoming infected (redness or worsening drainage) and/or you are experiencing fever, chill or worsening back pain and muscle spasms, contact the office so that we may evaluate you as soon as possible. B. Complications are uncommon, but please contact us if you have any signs or symptoms of: 1. wound infection (fever higher than 102.5 degrees F, redness, separation of wound, drainage, or increasing pain from the incision) 2. blood clots in legs (pain, swelling, redness and warmth in legs) 3. urinary tract infection (fever higher than 102.5 degrees F, burning upon urination or increased frequency of urination) 4. nerve problems (inability to walk on your toes or heels, numbness, loss of bowel or bladder control) 5. any other symptoms that concern you C. Please call the office at if you have any concerns or questions about your operation or recovery. D. No smoking! Smoking drastically decreases the chance of a solid fusion. E. Do not take any anti-inflammatory medications (Indocin, Advil, Motrin, Aspirin, Naprosyn, etc.) as these may inhibit the chance of a solid fusion. Tylenol is okay to take for pain. MANAGING PAIN AFTER SPINAL SURGERY 1. Narcotic medication is intended for short-term use and will be provided for surgical pain. Surgical pain usually lasts for a period of 4-6 weeks. Narcotic medication includes Percocet, Vicodin, Darvocet, Tylenol #3 or Lortab. 2. Longer-term pain is more appropriately treated with non-narcotic medication such as Tylenol ES. 3. Muscle spasm is not appropriately treated with narcotics. Muscle relaxers such as Soma, Flexeril or Skelaxin can be used along with Tylenol ES. 4. Remember that we all live with some "aches and pains". This is not unusual or uncommon after an injury or as we get older. a. Back pain is expected and may include muscle spasms for 4 to 6 weeks after surgery. The pain should gradually improve. If the pain worsens for no apparent reason, please contact the office. b. Intermittent leg pain may also be experienced and should not be concerned about unless it worsens for no apparent reason. If so, please contact the office. 5. We will provide appropriate medication within the normal guidelines of their prescribed use. We will also be very cautious and aware of potential abuse and extended duration of patients' medication needs. a. Pain medications are for your comfort and to assist with sleep and rest so that the tissue can heal. They are not provided in order to return to normal activity and should not be used through the day. To do so or worsening pain at night can result from ongoing tissue damage and development of tolerance to the prescribed medicine. 6. Please allow 2-3 days to process refills. Prescriptions will not be mailed but must be picked up at the office. FOLLOW UP VISIT: Keep your scheduled follow-up appointment. Any questions, please call the office at . Current Hospital Diet Patient's current hospital diet: Regular Diet Discharge Diet Recommended Diet: Regular Diet Procedures Procedures Performed: L4-L5, L5-S1 Lumbar Decompression/Laminectomy, Discectomy, Pedicle Screw Fixation, Application of Leigh, Application of Bone Morphogenetic Protein, and Posteriolateral Gutter Fusion Pending Studies Studies pending at discharge: no Medical Emergencies . Who to Call and When: Medical Emergencies: If at any time you feel your situation is an emergency, please call 911 immediately. . Non-Emergent Contact Non-Emergency issues call your: Primary Care Provider . "Provider Documentation" section prepared by Dmitry Ross. . VTE Core Measure Inpt VTE Proph given/why not?: Delano Thompson, SCD's
--- NOTE | 2017-03-12 16:31 | PROGRESS NOTE ---
DATE: 03/12/2017 SUBJECTIVE: Postop day #3. Back pain controlled, ambulating ____ improvement today. Vital signs stable. T max 37.1. ANGEL drain down to 20 mL. Hematocrit is stable at 13.2. PHYSICAL EXAMINATION: She is still exquisitely tender to palpation of the right greater trochanteric region. Neurologically intact. IMAGING DATA: MRI of the pelvis shows no evidence of fracture, but evidence of some arthritis. ASSESSMENT: Status post lumbar decompression and fusion with the right greater trochanteric bursitis. PLAN: At this time, will continue physical therapy. I did perform a right greater trochanteric bursa injection this afternoon. Hopefully, we will be able to discharge home tomorrow. We will discontinue her drain this evening.
[2017-03-12] MEDS: ASPIRIN 81 MG ECTAB PO SCH (20:30)
[2017-03-12] MEDS: EZETIMIBE 10MG TAB PO SCH (20:30)
[2017-03-12] MEDS: DOCUSATE SODIUM/SENNA 50/8.6MG TAB PO SCH (20:30)
[2017-03-12 23:21] VITALS: BP 138/80; PULSE 104; TEMP 37; O2SAT 94
[2017-03-13] MEDS: CYCLOBENZAPRINE HCL 5 MG TAB PO PRN ×3 (01:29→19:18)
[2017-03-13] MEDS: POLYETHYLENE (MIRALAX) 17 GM PACK PO SCH ×2 (05:45→12:00)
[2017-03-13 07:03] VITALS: BP 127/80; PULSE 102; TEMP 36.9; O2SAT 95
[2017-03-13] MEDS: OXYCODONE HCL IR 5 MG TAB (IMMEDIATE RELEASE) PO PRN ×3 (07:16→20:06)
[2017-03-13] MEDS: PANTOprazole SOD 40 MG TAB PO SCH (07:16)
[2017-03-13] MEDS ORDERED: BISACODYL 10 MG SUPP PR STA (07:45)
[2017-03-13] MEDS ORDERED: NURSING VERBAL MED ORDER ONE (12:30)
--- NOTE | 2017-03-13 13:40 | Hospitalist Progress Note ---
Hospitalist Progress Note Date of Service Mar 13, 2017. (Molly Mccarthy PA-C) Subjective Pt evaluation today including: conversation w/ patient, physical exam, chart review, review of inpatient medication list Patient thinks that the pain is slightly better today. She is still complaining of some back pain. Pain in the right lateral hip is improved. She was able to get up and walk down the hallway. She was unable to get back. She denies any chest pain or pressure. No dizziness. No nausea or abdominal pain. She hasn't yet had a bowel movement. Queen catheter came out yesterday. She is voiding on her own. Additional Comments: 6 system review negative. Please see pertinent positives in the history of present illness section. (Molly Mccarthy PA-C) Objective Vital Signs Date Time Temp Pulse Resp B/P Pulse Ox O2 Delivery O2 Flow Rate FiO2 03/13/17 07:15 Room Air 03/13/17 07:03 36.9 102 19 127/80 95 Room Air 03/12/17 23:21 37.0 104 17 138/80 94 Room Air 03/12/17 20:10 Room Air 03/12/17 15:20 37.1 105 16 136/82 96 Room Air (Molly Mccarthy PA-C) Physical Exam General Appearance: no apparent distress (in less distress today. Smiling.) Eyes: EOMI Neck: no JVD Respiratory/Chest: lungs clear Cardiovascular: regular rate, rhythm Abdomen: normal bowel sounds, non tender, soft Extremities: non-tender, no pedal edema, + pertinent finding (tenderness to palpation over the right lateral improved. Dressing clean, dry and intact.) Neurologic/Psychiatric: oriented x 3 Skin: warm/dry (Molly Mccarthy PA-C) Assessment and Plan 76-year-old female who underwent a lumbar decompression 03/[address] Ross. Pain improved today -Continue flexeril. Seems to be helping -Continue po oxy R hip pain-bursitis s/p steroid injection-pain improved Mild tachycardia-stable anxiety and depression-better today. Acute blood loss anemia-stable hgb 13 yesterday GERD-stable -Continue pantoprazole 40 mg daily Hyperlipidemia -Continue Zetia 10 mg daily Family history of coronary artery disease -ASA 81 mg daily Constipation-now passing gas-pt feels like she may have to have a BM soon -ordered dulcolax supp today -senna/docusate 2 tabs HS, miralax q 6 hr, prn dulcolax and enemas ordered DISPO -recommending inpt rehab (Molly Mccarthy, NAVIN) History Physician Professor Of History Supervision Note: I interviewed and examined the patient. Discussed with EKATERINA Mccarthy and agree with findings and plan as documented in the note. Any exceptions or clarifications are listed here: Much improved today. Reports her right hip is feeling better after steroid injection. She is ready for discharge to [facility] Vitals reviewed No acute distress, AAO 3 RRR, no MGR CTAB, no WCR, breathing unlabored Extremities no edema This patient is a 76-year-old female here status post lumbar decompression with lumbar radiculopathy, right trochanteric bursitis, also with a history of hyperlipidemia, GERD. -Status post steroid injection for the trochanteric bursitis-improved pain -PT/OT evaluations-she is now planning on going to acute rehabilitation this evening -Asked nursing staff to provide assistance with meals to help feed her with the head of the bed at least at 30's of that she does not aspirate -Other conditions stable -Mild tachycardia likely secondary to pain, no further evaluation needed Documented By: Abby Fernandez (Abby Fernandez MD)
--- NOTE | 2017-03-13 14:31 | DISCHARGE SUMMARY ---
DATE OF DISCHARGE: 03/13/2017. PRINCIPAL DIAGNOSIS: Spinal stenosis. HOSPITAL COURSE FOLLOWS: On 03/09/2017 patient underwent lumbar decompression and fusion, tolerated this well and taken to the orthopedic floor postoperatively. Postop day #1, she progressed slowly. Continued right leg pain and bursitis. Postop day 2, somewhat progressed. We did inject her trochanter. She improved somewhat but still required assistance. Subsequently, on 03/13/2017 she was discharged to the rehab. Discharge orders and instructions can be found on the chart for further review.
[2017-03-13 14:57] VITALS: BP 123/78; PULSE 100; TEMP 37.5; O2SAT 96
[2017-03-13 18:40] VITALS: BP 123/78; PULSE 100; TEMP 37.5; O2SAT 96
[2017-03-13] MEDS: ASPIRIN 81 MG ECTAB PO SCH (20:04)
[2017-03-13] MEDS: EZETIMIBE 10MG TAB PO SCH (20:04)
[2017-03-13] MEDS: DOCUSATE SODIUM/SENNA 50/8.6MG TAB PO SCH (20:04)
[2017-03-13] MEDS: ACETAMINOPHEN 500 MG TAB PO PRN (20:05)
== END 2017-03-13 20:45 | DRG 460 ==
LOC: ENRESERVDT → ENRESERVTM → C.ACU 08:26 → C.3E 09:30
PROVIDERS: ADMIT Orthopaedic Surgery Orthopaedic Surgery of the Spine; ATTEND Orthopaedic Surgery Orthopaedic Surgery of the Spine
PROC: 0SG00Z1 (ICD-10-PCS; principal; 2017-03-09 10:45)
PROC: 3E0V0GB Introduction of Recombinant Bone Morphogenetic Protein into Bones, Open Approach (ICD-10-PCS; principal; 2017-03-09 10:45)
PROC: 0SG30Z1 (ICD-10-PCS; principal; 2017-03-09 10:45)
DX: M48.07 Spinal stenosis, lumbosacral region (principal); D62 Acute posthemorrhagic anemia; M43.16 Spondylolisthesis, lumbar region; K44.9 Diaphragmatic hernia without obstruction or gangrene; K21.9 Gastro-esophageal reflux disease without esophagitis; Z85.828 Personal history of other malignant neoplasm of skin; K58.1 Irritable bowel syndrome with constipation; Z90.49 Acquired absence of other specified parts of digestive tract; Z88.8 Allergy status to other drugs, medicaments and biological substances; Z79.82 Long term (current) use of aspirin; Z79.899 Other long term (current) drug therapy; Z82.49 Family history of ischemic heart disease and other diseases of the circulatory system; Z80.9 Family history of malignant neoplasm, unspecified; Z82.61 Family history of arthritis; E78.5 Hyperlipidemia, unspecified; K59.00 Constipation, unspecified; M54.16 Radiculopathy, lumbar region; M70.61 Trochanteric bursitis, right hip; F32.9 Major depressive disorder, single episode, unspecified; F41.9 Anxiety disorder, unspecified; R00.0 Tachycardia, unspecified; M79.605 Pain in left leg; M79.604 Pain in right leg

== ENCOUNTER 2017-03-30 22:41 | Emergency (ER) | payer BC, OTHER ==
[~2017-03-30] VITALS: Ht 157.5 cm; Wt 62.0 kg
[~2017-03-30 22:41] MED LIST changes: -CEFAZOLIN 1000MG/55 ML D5W IV SCH; -LACTATED RINGER'S 1000ML 1,000 ML IV SCH; -NAPR1TAB48 PO; +RXC5 PO
[2017-03-30 22:44] VITALS: Ht 157.5 cm; Wt 62.0 kg
[2017-03-30] MEDS ORDERED: SODIUM CHLORIDE 0.9% 1000ML 1,000 ML IV STA (22:54)
[2017-03-30] MEDS ORDERED: SODIUM CHLORIDE 0.9% 500ML 500 ML IV STA (22:54)
[2017-03-30] MEDS ORDERED: MoRPHine SULFATE 4 MG/ML 1 ML CARP\\VIAL IV STA (22:54)
[2017-03-30] MEDS ORDERED: ONDANSETRON INJ 2 MG/ML 2 ML VIAL IV STA (22:54)
[2017-03-30] MEDS ORDERED: OPTIRAY 320 IV PRN (23:00)
[2017-03-30 23:23] LABS: BASO % 0.2 %; BASO ABS # 0.02 K/uL (0-0.2); COMPLETE YES; EOS % 0.4 %; HEMATOCRIT 44.1 % (37-47); IG% 0.2 %; LYMPH % 14.1 %; LYMPH ABS # 1.41 K/uL (1.2-3.4); MEAN CELL VOLUME 85.1 fL (80-100); MEAN PLATELET VOLUME 9.6 fL (7.4-10.4); MONO % 6.6 %; NEUT % 78.5 %; PLATELET COUNT 374 K/uL (130-400); RED BLOOD COUNT 5.18 M/uL (4.2-5.4); WHITE BLOOD COUNT 10.01 K/uL (4.8-10.8)
[2017-03-30 23:31] LABS: ISTAT CREATININE 0.8 mg/dl (0.6-1.3); ISTAT HEMOGLOBIN 15.3 g/dl (12.0-16.0); ISTAT IONIZED CALCIUM 1.09 mmol/l (1.12-1.32)
[2017-03-30 23:46] LABS: ALT/SGPT 32 U/L (12-78); AST/SGOT 16 U/L (15-37); BLOOD UREA NITROGEN 13 mg/dl (7-18); BUN/CREATININE RATIO 13.7 (10-20); CALCIUM 9.5 mg/dl (8.5-10.1); CARBON DIOXIDE 25 mmol/L (21-32); CHLORIDE 102 mmol/L (98-107); CREATININE 0.96 mg/dl (0.60-1.20); GLUCOSE 184 mg/dl (70-99); POTASSIUM 3.3 mmol/L (3.5-5.1); SODIUM 140 mmol/L (136-145)
[2017-03-30 23:51] LABS: ALKALINE PHOSPHATASE 124 U/L (45-117)
[2017-03-31 00:28] VITALS: O2SAT 100
[2017-03-31] MEDS ORDERED: SOAP SUDS ENEMA PR STA (00:38)
[2017-03-31] MEDS ORDERED: POTASSIUM CHLORIDE 10 MEQ TABCR PO STA (01:05)
--- NOTE | 2017-03-31 01:27 | EMERGENCY ROOM VISIT NOTE ---
ED Visit Note First contact with patient: 22:49 Patient evaluated by me at 1:26 AM. I agree with the physician auction assistant workup. Patient was having a bowel movement on the commode and is in no distress. Patient's abdomen is soft on examination.
--- NOTE | 2017-03-31 02:36 | EMERGENCY ROOM VISIT NOTE ---
History First contact with patient: 22:49 Chief Complaint: CONSTIPATION Stated Complaint: CONSTIPATED History of Present Illness The patient is a 76 year old female who presents to the Emergency Room with complaints of nausea, vomiting, lower abdominal pain and constipation. Patient' s been constipated since , 4 days ago. She had back surgery 3 weeks ago. She has finished rehabilitation. Things were going well until she started to get constipated. She tried a stool softener today and the pain got much worse. Pain 8 out of 10 to the lower abdomen. Nothing makes it better or worse. She now complains of nausea and vomiting that started just prior to arrival. No prior history of bowel obstruction. She's had prior abdominal surgeries. Patient denies chest pain, dyspnea, fever, chills, back pain, urinary symptoms, diarrhea. Review of Systems See HPI for pertinent positives & negatives. A total of 10 systems reviewed and were otherwise negative. Past Medical/Surgical History Medical Problems: (1) Back pain (2) Lumbar stenosis with neurogenic claudication (3) Scoliosis Surgical Problems: (1) H/O: hysterectomy Family History Patient reports no known family medical history. Social History Smoking Status: Never Smoker Smokeless Tobacco Use: No Drug Use: none Marital Status: Housing Status: lives with significant other Occupation Status: employed Current/Historical Medications Scheduled Aspirin (Aspirin Ec), 81 MG PO HS Cyclobenzaprine HCl (Cyclobenzaprine HCl), 1 TAB PO TID Ezetimibe (Zetia), 10 MG PO HS Pantoprazole (Protonix), 20 MG PO QAM Scheduled PRN Acetaminophen (Tylenol), 650 MG PO Q6H PRN for Pain Oxycodone HCl (Oxycodone HCl), 5-10 MG PO Q4H PRN for Moderate - severe pain Allergies Coded Allergies: Nitrofurantoin (Verified Allergy, Intermediate, HIVES,N&V, 03/30/17) Statins (Verified Adverse Reaction, Unknown, RESTLESS LEG/CRAMPING, ) Physical Exam Vital Signs Date Time Temp Pulse Resp B/P Pulse Ox O2 Delivery O2 Flow Rate FiO2 03/31/17 00:28 100 Nasal Cannula 2.0 03/30/17 23:51 97 03/30/17 23:49 98 16 153/83 100 Room Air 03/30/17 23:20 Room Air 03/30/17 23:20 Room Air 03/30/17 22:44 36.7 119 20 124/71 98 Room Air Physical Exam VITALS: Vitals are noted on the nurse's note and reviewed by myself. Vital signs stable. GENERAL: Pleasant female actively vomiting, nondiaphoretic, well-developed well- nourished. SKIN: The skin was without rashes, erythema, edema, or bruising. There is no tenting of the skin. Capillary reflex less than 2 seconds. HEAD: Normocephalic atraumatic. EARS: External auditory canals clear, tympanic membranes pearly bonilla without erythema or effusion bilaterally. EYES: Pupils equal round and reactive to light and accommodation. Conjunctivae without injection, sclerae without icterus. Extraocular movements intact. NOSE: Patent, turbinates without inflammation or discharge. MOUTH: Mucous membranes mildly dry. Pharynx without erythema or exudate. Uvula midline. Airway patent. Tongue does not deviate. NECK: Supple without nuchal rigidity. No lymphadenopathy. No thyromegaly. Cervical spine is nontender. No JVD. HEART: Regular rate and rhythm LUNGS: Clear to auscultation bilaterally without wheezes, rales or rhonchi. No dullness to percussion. No retractions or accessory muscle use. ABDOMEN: Positive bowel sounds x 4. Normal tympanic percussion. Soft, diffusely tender to palpation with increased pain in the lower abdomen, no CVA tenderness, without masses or organomegaly. Costa sign negative. No guarding or rebound tenderness. MUSCULOSKELETAL: No muscle atrophy, erythema, or edema noted. NEURO: Patient was alert and oriented to person place and time. Normal sensation to light and sharp touch. No focal neurological deficits. Medical Decision & Procedures Laboratory Results 03/30/17 23:10 Red Blood Count 5.18, Mean Corpuscular Volume 85.1, Mean Corpuscular Hemoglobin 29.0, Mean Corpuscular Hemoglobin Concent 34.0, Mean Platelet Volume 9.6, Neutrophils (%) (Auto) 78.5, Lymphocytes (%) (Auto) 14.1, Monocytes (%) (Auto) 6.6, Eosinophils (%) (Auto) 0.4, Basophils (%) (Auto) 0.2, Neutrophils # (Auto) 7.86, Lymphocytes # (Auto) 1.41, Monocytes # (Auto) 0.66, Eosinophils # (Auto) 0.04, Basophils # (Auto) 0.02 03/30/17 23:10 Test 03/30/17 23:10 03/30/17 23:17 White Blood Count 10.01 K/uL (4.8-10.8) Red Blood Count 5.18 M/uL (4.2-5.4) Hemoglobin 15.0 g/dL (12.0-16.0) Hematocrit 44.1 % (37-47) Mean Corpuscular Volume 85.1 fL (80-100) Mean Corpuscular Hemoglobin 29.0 pg (25-34) Mean Corpuscular Hemoglobin Concent 34.0 g/dl (32-36) Platelet Count 374 K/uL (130-400) Mean Platelet Volume 9.6 fL (7.4-10.4) Neutrophils (%) (Auto) 78.5 % Lymphocytes (%) (Auto) 14.1 % Monocytes (%) (Auto) 6.6 % Eosinophils (%) (Auto) 0.4 % Basophils (%) (Auto) 0.2 % Neutrophils # (Auto) 7.86 K/uL (1.4-6.5) Lymphocytes # (Auto) 1.41 K/uL (1.2-3.4) Monocytes # (Auto) 0.66 K/uL (0.11-0.59) Eosinophils # (Auto) 0.04 K/uL (0-0.5) Basophils # (Auto) 0.02 K/uL (0-0.2) RDW Standard Deviation 41.9 fL (36.4-46.3) RDW Coefficient of Variation 13.5 % (11.5-14.5) Immature Granulocyte % (Auto) 0.2 % Immature Granulocyte # (Auto) 0.02 K/uL (0.00-0.02) Est Creatinine Clear Calc Drug Dose 43.2 ml/min Estimated GFR () 66.6 Estimated GFR (Non- 57.4 BUN/Creatinine Ratio 13.7 (10-20) Calcium Level 9.5 mg/dl (8.5-10.1) Total Bilirubin 0.7 mg/dl (0.2-1) Direct Bilirubin 0.2 mg/dl (0-0.2) Aspartate Amino Transf (AST/SGOT) 16 U/L (15-37) Alanine Aminotransferase (ALT/SGPT) 32 U/L (12-78) Alkaline Phosphatase 124 U/L (45-117) Troponin I < 0.015 ng/ml (0-0.045) Total Protein 7.4 gm/dl (6.4-8.2) Albumin 3.8 gm/dl (3.4-5.0) Lipase 90 U/L (73-393) Bedside Hemoglobin 15.3 g/dl (12.0-16.0) Bedside Hematocrit 45 % (37-47) Bedside Sodium 139 mEq/L (135-144) Bedside Potassium 3.3 mEq/L (3.3-5.0) Bedside Chloride 99 mEq/L (101-112) Bedside Total CO2 21 mEq/l (24-31) Anion Gap 22.0 mmol/L (16-25) Bedside Blood Urea Nitrogen 13 mg/dl (7-18) Bedside Creatinine 0.8 mg/dl (0.6-1.3) Bedside Glucose (other) 189 mg/dl (70-99) Bedside Ionized Calcium (Edgar) 1.09 mmol/l (1.12-1.32) Medications Administered Medications (Trade) Dose Ordered Sig/Zenon Route Start Time Stop Time Status Last Admin Dose Admin Sodium Chloride 1,000 ml @ 125 mls/hr Q8H STAT IV 03/30/17 22:54 03/31/17 06:53 03/31/17 00:20 125 MLS/HR Sodium Chloride (Nss 500ml) 500 ml @ 999 mls/hr Q31M STAT IV 03/30/17 22:54 03/30/17 23:24 DC 03/30/17 23:22 999 MLS/HR Ondansetron HCl (Zofran Inj) 4 mg NOW STAT IV 03/30/17 22:54 03/30/17 22:56 DC 03/30/17 23:22 4 MG Morphine Sulfate (MoRPHine SULFATE INJ) 4 mg NOW STAT IV 03/30/17 22:54 03/30/17 22:56 DC 03/30/17 23:22 4 MG Miscellaneous (Soap Suds Enema) 1 ea NOW STAT MO 03/31/17 00:38 03/31/17 00:39 DC 03/31/17 01:00 1 EA ED Course Prior records/ancillary studies reviewed. Triage Nursing notes reviewed. Additional history obtained from family. The patient's history was concerning for abdominal pain. Differential diagnosis: Etiologies such as appendicitis, diverticulitis, PUD, biliary pathology, UTI, pancreatitis, obstruction, mesenteric ischemia, aortic pathology, infections, inflammatory bowel disease, renal colic, as well as others were entertained. Physical examination findings: As above. ER treatment provided: Zofran, morphine, IV fluids On reassessment the patient felt better. Diagnostics interpreted by me: ECG: Normal sinus, normal intervals, no acute ST-T wave changes. Impression normal sinus rhythm interpreted by myself The labs revealed hypokalemia and this is replaced orally. Stable H&H Imaging studies: CT was concerning for fecal loading per stat radiology Exam and history seem consistent with constipation. Patient felt much better after the enema. She had a large bowel movement. She is advised take magnesium citrate tomorrow and drink plenty of fluids and stay near a toilet. She is advised to follow-up family care in a few days or here in the ER sooner for abdominal pain, fevers, vomiting, worsening signs or symptoms or as needed. By the evaluation outlined above emergent etiologies such as appendicitis, diverticulitis, PUD, biliary pathology, UTI, pancreatitis, obstruction, mesenteric ischemia, aortic pathology, infections, inflammatory bowel disease, renal colic, as well as others were deemed relatively unlikely. The pt informed about the findings as listed above. All questions were answered and pleased with the treatment. Return instructions were outlined and the patient was discharged in stable condition. Outpatient prescription management: Magnesium citrate Referral: The patient was referred back to their primary care physician for follow-up in 2 to 3 days for a recheck of the current condition. Case reviewed with my attending. Medical Decision As above Impression Primary Impression: Constipation Additional Impression: Hypokalemia Departure Information Dispostion Home / Self-Care Condition GOOD Referrals Adonay Almaguer M.D. (PCP) Patient Instructions My [facility] Additional Instructions Magnesium citrate: Drink half of the The bottle when you get up, if you do not have a bowel movement within 6 hours then drink the rest. Stay near a toilet. Increase your fluid and fiber intake. Acetaminophen(Tylenol) may be used for fever or pain. Use 1000mg every six hours as needed. Avoid using more than 3000mg in a 24 hour period. Rest and drink plenty of fluids as tolerated. Continue current medications. Avoid strenuous activities and anything that worsens your pain. Resume normal activities once your symptoms resolve. Return to the ER immediately for worsening or persistent abdominal pain, vomiting, fevers, chest pains, difficulty breathing, worsening of your condition , or as needed. Follow up with your primary physician in 2-3 days for a recheck of your current condition. Problem Qualifiers
[2017-03-31] MEDS ORDERED: MAGNESIUM CITRATE 296 ML/BTL PO ONE (02:45)
[2017-03-31 02:55] VITALS: BP 136/70; PULSE 108; TEMP 36.7; O2SAT 97
--- NOTE | 2017-03-31 06:32 | DIAGNOSTIC IMAGING REPORT ---
ABDOMEN AND PELVIS CT WITH IV CONTRAST CT DOSE: 439.66 mGy.cm HISTORY: Pain SEVERE ABD PAIN/N/V TECHNIQUE: Multiaxial CT images of the abdomen and pelvis were performed following the use of intravenous contrast. COMPARISON STUDY: 02/27/2017 FINDINGS: Lung bases are clear. Prior cholecystectomy. Chronic biliary ductal prominence on a postoperative basis. Multicystic left kidney unchanged. No evidence renal hydronephrosis. Increased fecal load throughout the colon consistent with fecal stasis. Bladder is midline. No significant free fluid within pelvic cul-de-sac. IMPRESSION: Fecal stasis. Prior cholecystectomy. Electronically signed by: Nolberto Schafer M.D. 03/31/2017 6:31 AM Dictated Date/Time: 03/31/2017 6:29 AM
--- NOTE | 2017-03-31 07:22 | DIAGNOSTIC IMAGING REPORT ---
CHEST ONE VIEW PORTABLE CLINICAL HISTORY: CHEST PAIN dyspnea COMPARISON STUDY: 03/05/2017 FINDINGS: The bones soft tissues and hemidiaphragms are normal. The cardiomediastinal silhouette is normal. The lungs are clear. The pulmonary vasculature is normal. IMPRESSION: Negative chest. Electronically signed by: Nolberto Schafer M.D. 03/31/2017 7:21 AM Dictated Date/Time: 03/31/2017 7:21 AM
== END 2017-03-31 02:55 | disposition home or self-care (01) ==
LOC: C.EDB 22:43
DX: K59.00 Constipation, unspecified (principal); E87.6 Hypokalemia; Z90.710 Acquired absence of both cervix and uterus; Z79.82 Long term (current) use of aspirin; Z79.899 Other long term (current) drug therapy

== ENCOUNTER → 2017-05-04 | Outpatient (CLI) | payer BC ==
[~2017-05-04] MED LIST changes: -OXYC1TAB3 PO
[2017-05-04 12:37] LABS: BASO % 0.4 %; BASO ABS # 0.02 K/uL (0-0.2); COMPLETE YES; EOS % 2.9 %; IG% 0.4 %; LYMPH % 41.6 %; LYMPH ABS # 2.03 K/uL (1.2-3.4); MEAN CELL VOLUME 88.8 fL (80-100); MEAN CORPUSCULAR HEMOGLOBIN 28.5 pg (25-34); MEAN CORPUSCULAR HGB CONC 32.1 g/dl (32-36); MEAN PLATELET VOLUME 10.2 fL (7.4-10.4); MONO % 10.2 %; NEUT % 44.5 %; PLATELET COUNT 254 K/uL (130-400); RED BLOOD COUNT 4.84 M/uL (4.2-5.4); WHITE BLOOD COUNT 4.88 K/uL (4.8-10.8)
[2017-05-04 12:56] LABS: CALCIUM 9.4 mg/dl (8.5-10.1)
[2017-05-04 13:00] LABS: ALKALINE PHOSPHATASE 73 U/L (45-117); ALT/SGPT 32 U/L (12-78); AST/SGOT 17 U/L (15-37); BLOOD UREA NITROGEN 11 mg/dl (7-18); CARBON DIOXIDE 25 mmol/L (21-32); CHLORIDE 108 mmol/L (98-107); CHOLESTEROL 208 mg/dl (0-200); GLUCOSE 95 mg/dl (70-99); POTASSIUM 3.8 mmol/L (3.5-5.1); SODIUM 142 mmol/L (136-145); TRIGLYCERIDES 263 mg/dl (0-150); VERY LOW DENSITY LIPOPROT CALC 53 mg/dl
[2017-05-04 13:05] LABS: CHOLESTEROL/HDL RATIO 3.7; HDL CHOLESTEROL 56 mg/dl; LDL CHOLESTEROL CALCULATED 99 mg/dl
== END | disposition home or self-care (01) ==
LOC: C.LABBFT 07:59
PROVIDERS: ATTEND Internal Medicine
DX: E78.5 Hyperlipidemia, unspecified (principal)

== ENCOUNTER → 2017-09-03 | Outpatient (CLI) | payer BC ==
--- NOTE | 2017-09-04 13:42 | MAMMOGRAPHY REPORT ---
BILATERAL DIGITAL SCREENING MAMMOGRAM WITH CAD: 09/03/2017 CLINICAL HISTORY: Routine screening. Patient has no complaints. TECHNIQUE: Current study was also evaluated with a Computer Aided Detection (CAD) system. Bilateral CC and MLO views were obtained. COMPARISON: Comparison is made to exams dated: 08/05/2016 mammogram, 08/02/2015 mammogram, 08/01/2014 m ammogram, 07/07/2013 mammogram, 07/06/2012 mammogram, and 07/04/2011 mammogram - [facility] enter. BREAST COMPOSITION: There are scattered areas of fibroglandular density in both breasts. FINDINGS: No suspicious masses, calcifications, or areas of architectural distortion are noted in ei ther breast. There has been no significant interval change compared to prior exams. IMPRESSION: ACR BI-RADS CATEGORY 1: NEGATIVE There is no mammographic evidence of malignancy. A 1 year screening mammogram is recommended. The pa tient will receive written notification of the results. Approximately 10% of breast cancers are not detected with mammography. A negative mammographic report should not delay biopsy if a clinically suggestive mass is present. Mily Randall M.D. ah/:09/03/2017 15:34:05 Client Relations Associate: Cece BARAHONA(Lizz)(M), [facility] letter sent: Normal 1/2 BI-RADS Code: ACR BI-RADS Category 1: Negative
== END | disposition home or self-care (01) ==
LOC: C.MAMM 14:58
PROVIDERS: ATTEND Internal Medicine
DX: Z12.31 Encounter for screening mammogram for malignant neoplasm of breast (principal)

== ENCOUNTER → 2017-10-29 | Outpatient (CLI) | payer BC ==
[2017-10-29 13:09] LABS: HEMATOCRIT 42.4 % (37-47); MEAN CELL VOLUME 87.1 fL (80-100); MEAN CORPUSCULAR HEMOGLOBIN 29.2 pg (25-34); MEAN CORPUSCULAR HGB CONC 33.5 g/dl (32-36); MEAN PLATELET VOLUME 10.7 fL (7.4-10.4); PLATELET COUNT 209 K/uL (130-400); RED BLOOD COUNT 4.87 M/uL (4.2-5.4); WHITE BLOOD COUNT 5.04 K/uL (4.8-10.8)
[2017-10-29 13:15] LABS: ALT/SGPT 25 U/L (12-78); AST/SGOT 17 U/L (15-37); BLOOD UREA NITROGEN 19 mg/dl (7-18); BUN/CREATININE RATIO 21.9 (10-20); CALCIUM 8.9 mg/dl (8.5-10.1); CARBON DIOXIDE 26 mmol/L (21-32); CHLORIDE 107 mmol/L (98-107); CREATININE 0.86 mg/dl (0.60-1.20); GLUCOSE 94 mg/dl (70-99); POTASSIUM 4.1 mmol/L (3.5-5.1); SODIUM 138 mmol/L (136-145); TRIGLYCERIDES 174 mg/dl (0-150); VERY LOW DENSITY LIPOPROT CALC 35 mg/dl
[2017-10-29 13:17] LABS: ALB/GLOB RATIO 1.1 (0.9-2); ALKALINE PHOSPHATASE 63 U/L (45-117); CHOLESTEROL 208 mg/dl (0-200); CHOLESTEROL/HDL RATIO 3.2; HDL CHOLESTEROL 65 mg/dl; LDL CHOLESTEROL CALCULATED 108 mg/dl
== END | disposition home or self-care (01) ==
LOC: C.LABBFT 07:59
PROVIDERS: ATTEND Internal Medicine
DX: E78.5 Hyperlipidemia, unspecified (principal)

== ENCOUNTER → 2018-06-08 | Outpatient (CLI) | payer BC | END | disposition home or self-care (01) | LOC: C.MAMM 08:16 | PROVIDERS: ATTEND Internal Medicine | DX: M19.90 Unspecified osteoarthritis, unspecified site (principal); Z78.0 Asymptomatic menopausal state; M81.0 Age-related osteoporosis without current pathological fracture; M85.851 Other specified disorders of bone density and structure, right thigh; M85.852 Other specified disorders of bone density and structure, left thigh ==

== ENCOUNTER 2024-12-10 15:16 | Observation (INO) ==
--- NOTE | 2024-12-10 16:53 | Emergency Department Note ---
Impression & Plan Acute confusion ED Provider Note HISTORY OF PRESENT ILLNESS: Patient is an 84-year-old female presenting with acute confusion. Patient's family reports has been having intermittent episodes of confusion over the last month. However, they report that today she does not seem to remember much of anything. States that symptoms started upon the patient waking up today and had just gotten progressively worse throughout the day. Reports that she forgets conversations that just happened 5 minutes ago. Patient denies any headache or changes in vision. Denies any numbness, tingling or weakness in her extremities. She is not on any anticoagulation. She denies any dysuria or hematuria. Denies any chest pain or shortness of breath. No reported fevers. Patient is alert to person and that she is in [facility]. She knows it is November but is unsure of the year. Family reports this is abnormal for her. They state that for the last week she "thought she was hacked" and has been up all night and not sleeping well and very stressed from this event. No reported recent falls or head injury. No chiropractic manipulation of her neck. ROS: as above PHYSICAL EXAM: Constitutional: Patient appears in no acute distress. HENT: Head: Normocephalic and atraumatic. Eyes: EOMI, PERRL Mouth/Throat: Mucous membranes moist. Neck: Trachea midline. Neck supple. Cardiovascular: RRR, No murmurs, rubs or gallops. Intact distal pulses. Pulmonary/Chest: No respiratory distress. Breath sounds clear and equal bilaterally. No wheezes or rales. Abdominal: Abdomen soft, no tenderness, rebound or guarding. Musculoskeletal: No edema, tenderness or deformity noted. Skin: Warm and dry. No rash, erythema, pallor or cyanosis Psychiatric: Appropriate mood and affect for situation. Neurological: Alert and keenly responsive. Facies symmetric. Able to raise eyebrows, close eyes, smile, puff mouth, stick out tongue, move tongue left and right and raise palate symmetrically. Able to shrug shoulders. PERRLA. SILT to forehead below eye and at jawline. Can hear soft noise bilaterally. Good finger to nose. Strength 5/5 in bilateral upper and lower extremities. SILT throughout bilateral upper and lower extremities. NIHSS 1 (due to confusion) MDM: - Vitals signs showed hypertension - History obtained via patient's family, given patient's confusion. History as above. - Patient was not alerted as a stroke alert, given that she was a potential wake-up stroke. She has an NIHSS of 1 secondary to confusion but otherwise no focal neurological deficits. She is not a TNK candidate. No obvious large vessel occlusion on CT imaging to make her a candidate for her thrombectomy. - Chronic conditions affecting care: CKD; HLD - Differential diagnoses include, but are not limited to: CVA; intracranial hemorrhage; ACS; pneumonia; viral syndrome; dementia; UTI - Order placed for continuous cardiac monitoring. At this time, monitor showed rate of 74 bpm with normal sinus rhythm, per my interpretation. - External medical records reviewed. Primary care visit note dated 11/28/2024 was reviewed. Patient was given her flu shot at that appointment. - EKG interpreted by myself showed normal sinus rhythm. Rate 74 bpm. QT 372. No acute ischemic changes. - Laboratory workup interpreted by myself showed normal WBC; normal PT/INR; normal lactate; normal TSH; stable electrolytes; normal troponin - UA negative for infection - CXR negative for pneumonia, per my interpretation - CT head wo contrast negative for acute intracranial pathology - CTA head negative for acute intracranial pathology - CTA neck negative for acute pathology - Viral respiratory panel negative. - Discussed results with patient and her family at bedside. Family reports that the patient still does not seem to be back to her baseline. Unclear etiology for her acute confusion at this time. MRI brain was also ordered, to further rule out potential stroke etiology. Will admit to hospital service for further workup. - Discussion was had with family independence case manager about patient's case and need for admission - Hospitalist, Dr. Huizar, consulted for admission - [facility] and [facility]. ASSESSMENT AND PLAN: Diagnosis: Acute confusion Plan: Admit Past Med/Surg History Problem List (Updated 12/10/24 @ 20:30 by Jessica Weber MD) Acute confusion (Acute) CKD stage 3a, GFR 45-59 ml/min Scoliosis (Chronic) Lumbar stenosis with neurogenic claudication Actinic keratosis (Acute) Cyst of kidney, acquired (Acute) Gastroesophageal reflux disease (Chronic) Hyperlipidemia (Chronic) Lumbar radiculopathy (Acute) Osteoarthritis, chronic (Acute) Elevated blood pressure reading in office without diagnosis of hypertension Hand arthritis Osteoporosis SNHL (sensorineural hearing loss) Urinary incontinence Medical History (Updated 12/10/24 @ 20:30 by Jessica Weber MD) Family history of melanoma History of basal cell carcinoma Umbilical hernia Sciatica Postmenopausal Basal cell carcinoma of face Surgical History History of back surgery History of cholecystectomy H/O: hysterectomy H/O umbilical hernia repair Family History Father Myocardial infarction Mother Hypertension Aortic aneurysm Father Myocardial infarction Other Family history of melanoma Melanoma Denies family history of Ovarian cancer Prostate cancer Breast cancer Colorectal cancer Social History Smoking Status: Never smoker Second Hand Exposure: No; Do You Dip or Chew Tobacco: No; Hx Alcohol Use: Yes Alcohol type: wine Alcohol Intake Frequency: Monthly or Less Hx Substance Use: No Preferred Language: [place] Visual Impairment: No Limitations Hearing Ability: Use of Hearing Aid Answering Service Operator Required: No Beliefs That Will Affect Care: None marital status: Current Living Situation: Spouse and Foster Care current occupational status: retired How many Children do You have: 3 Feels Safe at Home: Yes Childhood Exposure to Second-Hand Smoke: Yes Diet: Weight Watchers and regular Diet Comment: Weight Watchers caffeine: Yes during the past year weight has: decreased > 10 lbs Dental Care, Regularly: Yes Physical Activity Frequency: Daily Seatbelt Use: always Sunscreen Use: Yes Assistive Devices: Hearing Aid - Bilateral Allergies Allergies Allergy/AdvReac Type Severity Reaction Status Date / Time nitrofurantoin Allergy Intermediate HIVES,N&V Verified 11/28/24 13:38 Yqvesnv-EII-DaG Reductase AdvReac Unknown RESTLESS Verified 11/28/24 13:38 Inhibitor LEG/CRAMPING [Trjjpnx-Uye-Kya Reductase Inhibitor] Home Meds Home Medications Medication Instructions Recorded Confirmed calcium carbonate (Calcium 600) 600 mg PO DAILY 05/21/20 11/28/24 cholecalciferol (vitamin D3) 50 50 mcg PO DAILY 05/21/20 11/28/24 mcg (2,000 unit) capsule multivitamin (Daily Multi-Vitamin 1 tab PO QAM 05/21/20 11/28/24 tablet) Previous Rx's Medication Instructions Recorded Myrbetriq 25 mg tablet,extended 25 mg PO DAILY #90 tabs 06/23/24 release (mirabegron) alendronate 70 mg tablet (Fosamax) 70 mg PO .COMPLEX #12 tabs 08/16/24 famotidine 40 mg tablet 20 mg (1/2 x 40 mg) PO DAILY #90 11/28/24 tabs Results & Data (ED) Vital Signs Vital Signs - 24 hr 12/10/24 15:22 12/10/24 16:16 12/10/24 16:16 Temperature 36.5 C Temperature Source Temporal Artery Scan Pulse Rate 96 H Pulse Rate [Right Brachial] 72 Pulse Rhythm [Right Brachial] Regular Pulse Strength [Right Brachial] Normal Respiratory Rate 18 22 Respiratory Effort / Characteristics Non-Labored Spontaneous Non-Labored Respiratory Depth Normal Normal Respiratory Pattern Regular Regular Blood Pressure 182/93 H Blood Pressure [Right Arm] 164/80 H Blood Pressure Mean 122 Blood Pressure Mean [Right Arm] 108 Blood Pressure Position [Right Arm] Sitting Pulse Oximetry 99 98 Oxygen Delivery Method Room Air Room Air Room Air Sepsis Recent Fever Within 48 Hours No Sepsis New/Unexplained Change in Mental Status Yes Sepsis Action Taken by Nursing No Action Required 12/10/24 16:50 12/10/24 17:28 12/10/24 18:00 Temperature Temperature Source Pulse Rate 80 Pulse Rate [Right Brachial] 80 Pulse Rhythm [Right Brachial] Regular Pulse Strength [Right Brachial] Normal Respiratory Rate 18 Respiratory Effort / Characteristics Non-Labored Respiratory Depth Normal Respiratory Pattern Regular Blood Pressure Blood Pressure [Right Arm] 177/79 H Blood Pressure Mean Blood Pressure Mean [Right Arm] 111 Blood Pressure Position [Right Arm] Lying Pulse Oximetry 96 98 Oxygen Delivery Method Room Air Room Air Sepsis Recent Fever Within 48 Hours Sepsis New/Unexplained Change in Mental Status Sepsis Action Taken by Nursing 12/10/24 20:19 Temperature Temperature Source Pulse Rate 74 Pulse Rate [Right Brachial] Pulse Rhythm [Right Brachial] Pulse Strength [Right Brachial] Respiratory Rate Respiratory Effort / Characteristics Respiratory Depth Respiratory Pattern Blood Pressure Blood Pressure [Right Arm] Blood Pressure Mean Blood Pressure Mean [Right Arm] Blood Pressure Position [Right Arm] Pulse Oximetry Oxygen Delivery Method Sepsis Recent Fever Within 48 Hours Sepsis New/Unexplained Change in Mental Status Sepsis Action Taken by Nursing Laboratory Data 12/10/24 16:42 12/10/24 16:42 Lab Results 12/10/24 12/10/24 12/10/24 Range/Units 16:42 17:06 17:09 WBC 5.96 (4.8-10.8) K/ul RBC 5.49 H (4.20-5.40) M/uL Hgb 15.8 (12.0-16.0) g/dl Hct 46.3 (37.0-47.0) % MCV 84.3 (80.0-100.0) fL MCH 28.8 (25.0-34.0) pg MCHC 34.1 (32.0-36.0) g/dL RDW Std Deviation 40.5 (36.4-46.3) fL RDW Coeff of Ana Laura 13.0 (11.5-14.5) % Plt Count 254 (130-400) K/uL MPV 10.4 (9.4-12.4) fL Immature Gran % (Auto) 0.2 % Neut % (Auto) 59.3 % Lymph % (Auto) 29.7 % Morton % (Auto) 8.7 % Eos % (Auto) 1.3 % Baso % (Auto) 0.8 % Neut # (Auto) 3.53 (1.40-6.50) K/uL Lymph # (Auto) 1.77 (1.20-3.40) K/uL Morton # (Auto) 0.52 (0.11-0.59) K/uL Eos # (Auto) 0.08 (0.00-0.50) K/uL Baso # (Auto) 0.05 (0.00-0.20) K/uL Immature Gran # (Auto) 0.01 (0.01-0.20) K/uL PT Cancelled INR Cancelled Sodium 141 (136-145) mmol/L Potassium 4.0 (3.5-5.1) mmol/L Chloride 107 (98-107) mmol/L Carbon Dioxide 26 (21-32) mmol/L Anion Gap 8 (3-11) BUN 17 (6-23) mg/dl Creatinine 0.98 (0.6-1.2) mg/dl Est Cr Clr Drug Dosing 33.8 ml/min eGFR 56.92 BUN/Creatinine Ratio 17.3 (10-20) Glucose 109 H (70-99(Fasting)) mg/dl Lactate 1.2 (0.4-2.0) mmol/L Calcium 9.9 (8.6-10.3) mg/dl Magnesium 2.2 (1.7-2.4) mg/dl Total Bilirubin 0.6 (0.2-1.0) mg/dl AST 18 (13-39) U/L ALT 16 (7-52) U/L Alkaline Phosphatase 42 (34-104) U/L Troponin I High Sens 5.7 (0-14) pg/ml Total Protein 7.4 (6.0-8.3) gm/dl Albumin 4.6 (3.4-5.0) gm/dl Globulin 2.8 (2.5-4.0) gm/dl Albumin/Globulin Ratio 1.6 (0.9-2) TSH 2.919 (0.300-4.500) uIu/ml Urine Color Urine Appearance (Clear) Urine pH (4.5-7.5) Ur Specific Edgar (1.000-1.030) Urine Protein (Negative) Urine Glucose (UA) (Negative) Urine Ketones (Negative) Urine Blood (Negative) Urine Nitrite (Negative) Urine Bilirubin (Negative) Urine Urobilinogen (Negative) Ur Leukocyte Esterase (Negative) Urine WBC (Auto) (0-5) /hpf Urine RBC (Auto) (0-2) /hpf U Hyaline Cast (Auto) (0-2) /lpf U Epithel Cells (Auto) (0-2) /hpf Urine Bacteria (Auto) (None Seen) Adenovirus (PCR) Not Detected (NotDetected) B. pertussis DNA (PCR) Not Detected (NotDetected) B.parapertussis DNA PCR Not Detected (NotDetected) C. pneumoniae DNA (PCR) Not Detected (NotDetected) Coronavirus OC43 (PCR) Not Detected (NotDetected) Coronavirus HKU1 (PCR) Not Detected (NotDetected) Coronavirus 229E (PCR) Not Detected (NotDetected) SARS-CoV-2 (PCR) Not Detected (NotDetected) Coronavirus NL63 (PCR) Not Detected (NotDetected) Human Metapneumovir PCR Not Detected (NotDetected) Influenza Type A (PCR) Not Detected (NotDetected) Influenza Type B (PCR) Not Detected (NotDetected) M. pneumoniae (PCR) Not Detected (NotDetected) Parainfluenza 1 (PCR) Not Detected (NotDetected) Parainfluenza 2 (PCR) Not Detected (NotDetected) Parainfluenza 3 (PCR) Not Detected (NotDetected) Parainfluenza 4 (PCR) Not Detected (NotDetected) RSV (PCR) Not Detected (NotDetected) Entero/Rhino (PCR) Not Detected (NotDetected) 12/10/24 12/10/24 Range/Units 18:09 18:37 WBC (4.8-10.8) K/ul RBC (4.20-5.40) M/uL Hgb (12.0-16.0) g/dl Hct (37.0-47.0) % MCV (80.0-100.0) fL MCH (25.0-34.0) pg MCHC (32.0-36.0) g/dL RDW Std Deviation (36.4-46.3) fL RDW Coeff of Ana Laura (11.5-14.5) % Plt Count (130-400) K/uL MPV (9.4-12.4) fL Immature Gran % (Auto) % Neut % (Auto) % Lymph % (Auto) % Morton % (Auto) % Eos % (Auto) % Baso % (Auto) % Neut # (Auto) (1.40-6.50) K/uL Lymph # (Auto) (1.20-3.40) K/uL Morton # (Auto) (0.11-0.59) K/uL Eos # (Auto) (0.00-0.50) K/uL Baso # (Auto) (0.00-0.20) K/uL Immature Gran # (Auto) (0.01-0.20) K/uL PT 11.2 INR 1.0 Sodium (136-145) mmol/L Potassium (3.5-5.1) mmol/L Chloride (98-107) mmol/L Carbon Dioxide (21-32) mmol/L Anion Gap (3-11) BUN (6-23) mg/dl Creatinine (0.6-1.2) mg/dl Est Cr Clr Drug Dosing ml/min eGFR BUN/Creatinine Ratio (10-20) Glucose (70-99(Fasting)) mg/dl Lactate (0.4-2.0) mmol/L Calcium (8.6-10.3) mg/dl Magnesium (1.7-2.4) mg/dl Total Bilirubin (0.2-1.0) mg/dl AST (13-39) U/L ALT (7-52) U/L Alkaline Phosphatase (34-104) U/L Troponin I High Sens (0-14) pg/ml Total Protein (6.0-8.3) gm/dl Albumin (3.4-5.0) gm/dl Globulin (2.5-4.0) gm/dl Albumin/Globulin Ratio (0.9-2) TSH (0.300-4.500) uIu/ml Urine Color Yellow Urine Appearance Clear (Clear) Urine pH 7.0 (4.5-7.5) Ur Specific Edgar 1.020 (1.000-1.030) Urine Protein Negative (Negative) Urine Glucose (UA) Negative (Negative) Urine Ketones Negative (Negative) Urine Blood Negative (Negative) Urine Nitrite Negative (Negative) Urine Bilirubin Negative (Negative) Urine Urobilinogen Negative (Negative) Ur Leukocyte Esterase Trace H (Negative) Urine WBC (Auto) 0-5 (0-5) /hpf Urine RBC (Auto) 0-2 (0-2) /hpf U Hyaline Cast (Auto) 0-2 (0-2) /lpf U Epithel Cells (Auto) 0-2 (0-2) /hpf Urine Bacteria (Auto) None Seen (None Seen) Adenovirus (PCR) (NotDetected) B. pertussis DNA (PCR) (NotDetected) B.parapertussis DNA PCR (NotDetected) C. pneumoniae DNA (PCR) (NotDetected) Coronavirus OC43 (PCR) (NotDetected) Coronavirus HKU1 (PCR) (NotDetected) Coronavirus 229E (PCR) (NotDetected) SARS-CoV-2 (PCR) (NotDetected) Coronavirus NL63 (PCR) (NotDetected) Human Metapneumovir PCR (NotDetected) Influenza Type A (PCR) (NotDetected) Influenza Type B (PCR) (NotDetected) M. pneumoniae (PCR) (NotDetected) Parainfluenza 1 (PCR) (NotDetected) Parainfluenza 2 (PCR) (NotDetected) Parainfluenza 3 (PCR) (NotDetected) Parainfluenza 4 (PCR) (NotDetected) RSV (PCR) (NotDetected) Entero/Rhino (PCR) (NotDetected) Administered Medications Discontinued Medications Ioversol (Optiray 320 125ml) 118 ml IV ONCE ONE Stop: 12/10/24 18:10 Last Admin: 12/10/24 18:09 Dose: 118 ml Documented By: [facility] Imaging Data Radiologist's Impression: Chest X-Ray 12/10/24 16:50 Chest radiograph, one view History: Chest pain Comparison: 03/30/2017 Findings: Single AP view of the chest performed. No focal consolidation or pleural effusion. No pneumothorax. The cardiomediastinal silhouette is within normal limits. Normal pulmonary vascularity. No evidence for lymphadenopathy. No visualized bony or soft tissue abnormality. Impression: Normal chest radiograph Electronically signed by Samir Oquendo 12-10-2024 5:[address] 12/10/24 16:[address] without contrast CT angiogram of the neck CT angiogram of the brain with contrast Provided History: Neuro deficit Comparison: None Technique: HEAD CT: Using multidetector thin collimation helical acquisition technique, axial, coronal and sagittal CT images from the skull base to the vertex were obtained without intravenous contrast. HEAD and NECK CTA: During rapid bolus intravenous injection of nonionic contrast material, axial images were obtained using thin collimation multidetector helical technique from the base of the neck through the Vertex of vertex of the head. This CT angiogram data was reconstructed at thin intervals with mild overlap. 3D reconstructions were obtained. The axial source images, multiplanar reformations, 3D reconstructions in both maximum intensity projection display and volume rendered models were reviewed. Dose reduction techniques were achieved by using automatic exposure control and/or adjustment of mA and/or kV according to patient size and/or use of iterative reconstruction technique. Findings: Head CT: There is no intracranial hemorrhage, mass effect, or midline shift. Mascorro/white matter differentiation in both cerebral hemispheres is preserved. Ventricles are proportionate to the cerebral sulci. There is mild generalized cerebral atrophy. Head CTA demonstrates no aneurysm or stenosis of the major intracranial arteries. Neck CTA demonstrates no stenosis of the major cervical arteries. Mild calcification of the carotid bulbs without associated stenosis. The origins of the great vessels from the aortic arch are patent. The normal distal right internal carotid artery measures 5 mm. The normal distal left internal carotid artery measures 5 mm. No mass is noted within the visualized portions of the cervical soft tissues or lung apices. Impression: 1. Head CTA demonstrates no aneurysm or stenosis of the major intracranial arteries, 2. Neck CTA demonstrates no stenosis of the major cervical arteries. 3. No intracranial hemorrhage on the noncontrast head CT. The study was analyzed using artificial intelligence software for large vessel occlusion detection. Electronically signed by Samir Oquendo 12-10-2024 6:21 PM Head CTA 12/10/24 16:[address] without contrast CT angiogram of the neck CT angiogram of the brain with contrast Provided History: Neuro deficit Comparison: None Technique: HEAD CT: Using multidetector thin collimation helical acquisition technique, axial, coronal and sagittal CT images from the skull base to the vertex were obtained without intravenous contrast. HEAD and NECK CTA: During rapid bolus intravenous injection of nonionic contrast material, axial images were obtained using thin collimation multidetector helical technique from the base of the neck through the Vertex of vertex of the head. This CT angiogram data was reconstructed at thin intervals with mild overlap. 3D reconstructions were obtained. The axial source images, multiplanar reformations, 3D reconstructions in both maximum intensity projection display and volume rendered models were reviewed. Dose reduction techniques were achieved by using automatic exposure control and/or adjustment of mA and/or kV according to patient size and/or use of iterative reconstruction technique. Findings: Head CT: There is no intracranial hemorrhage, mass effect, or midline shift. Mascorro/white matter differentiation in both cerebral hemispheres is preserved. Ventricles are proportionate to the cerebral sulci. There is mild generalized cerebral atrophy. Head CTA demonstrates no aneurysm or stenosis of the major intracranial arteries. Neck CTA demonstrates no stenosis of the major cervical arteries. Mild calcification of the carotid bulbs without associated stenosis. The origins of the great vessels from the aortic arch are patent. The normal distal right internal carotid artery measures 5 mm. The normal distal left internal carotid artery measures 5 mm. No mass is noted within the visualized portions of the cervical soft tissues or lung apices. Impression: 1. Head CTA demonstrates no aneurysm or stenosis of the major intracranial arteries, 2. Neck CTA demonstrates no stenosis of the major cervical arteries. 3. No intracranial hemorrhage on the noncontrast head CT. The study was analyzed using artificial intelligence software for large vessel occlusion detection. Electronically signed by Samir Oquendo 12-10-2024 6:21 PM Neck CTA 12/10/24 16:[address] without contrast CT angiogram of the neck CT angiogram of the brain with contrast Provided History: Neuro deficit Comparison: None Technique: HEAD CT: Using multidetector thin collimation helical acquisition technique, axial, coronal and sagittal CT images from the skull base to the vertex were obtained without intravenous contrast. HEAD and NECK CTA: During rapid bolus intravenous injection of nonionic contrast material, axial images were obtained using thin collimation multidetector helical technique from the base of the neck through the Vertex of vertex of the head. This CT angiogram data was reconstructed at thin intervals with mild overlap. 3D reconstructions were obtained. The axial source images, multiplanar reformations, 3D reconstructions in both maximum intensity projection display and volume rendered models were reviewed. Dose reduction techniques were achieved by using automatic exposure control and/or adjustment of mA and/or kV according to patient size and/or use of iterative reconstruction technique. Findings: Head CT: There is no intracranial hemorrhage, mass effect, or midline shift. Mascorro/white matter differentiation in both cerebral hemispheres is preserved. Ventricles are proportionate to the cerebral sulci. There is mild generalized cerebral atrophy. Head CTA demonstrates no aneurysm or stenosis of the major intracranial arteries. Neck CTA demonstrates no stenosis of the major cervical arteries. Mild calcification of the carotid bulbs without associated stenosis. The origins of the great vessels from the aortic arch are patent. The normal distal right internal carotid artery measures 5 mm. The normal distal left internal carotid artery measures 5 mm. No mass is noted within the visualized portions of the cervical soft tissues or lung apices. Impression: 1. Head CTA demonstrates no aneurysm or stenosis of the major intracranial arteries, 2. Neck CTA demonstrates no stenosis of the major cervical arteries. 3. No intracranial hemorrhage on the noncontrast head CT. The study was analyzed using artificial intelligence software for large vessel occlusion detection. Electronically signed by Samir Oquendo 12-10-2024 6:21 PM Discharge Plan Visit Data Chief Complaint: Confusion Stated Complaint: CONFUSION ED Provider: Jessica Weber Discharge Problem: Acute confusion Forms Stand Alone Forms: My [facility] Prescriptions Prescriptions: No Action Myrbetriq 25 mg tablet extended release 24 hr 25 mg PO DAILY Qty: 90 3RF alendronate [Fosamax] 70 mg tablet 70 mg PO .COMPLEX Qty: 12 3RF Rx Instructions: 70 mg PO once weekly; multivitamin [Daily Multi-Vitamin] Tablet 1 tab PO QAM cholecalciferol (vitamin D3) 50 mcg (2,000 unit) capsule 50 mcg PO DAILY calcium carbonate [Calcium 600] 600 mg calcium (1,500 mg) tablet 600 mg PO DAILY famotidine 40 mg tablet 20 mg PO DAILY Qty: 90 3RF Referrals Referrals: Yoanna Hernández MD [Primary Care Provider] -
[2024-12-10 17:11] LABS: Basophils # (auto) 0.05 K/uL (0.00-0.20); Basophils % (auto) 0.8 %; Eosinophils # (auto) 0.08 K/uL (0.00-0.50); Eosinophils % (auto) 1.3 %; Hematocrit (blood only) 46.3 % (37.0-47.0); Hemoglobin 15.8 g/dl (12.0-16.0); Immature Granulocytes # (auto) 0.01 K/uL (0.01-0.20); Immature Granulocytes % (auto) 0.2 %; Lymphocytes # (auto) 1.77 K/uL (1.20-3.40); Lymphocytes % (auto) 29.7 %; Mean Corpuscular Hemoglobin 28.8 pg (25.0-34.0); Mean Corpuscular Hgb Conc 34.1 g/dL (32.0-36.0); Mean Corpuscular Volume 84.3 fL (80.0-100.0); Mean Platelet Volume 10.4 fL (9.4-12.4); Monocytes # (auto) 0.52 K/uL (0.11-0.59); Monocytes % (auto) 8.7 %; Neutrophils # (auto) 3.53 K/uL (1.40-6.50); Neutrophils % (auto) 59.3 %; Platelet Count 254 K/uL (130-400); RDW Standard Deviation 40.5 fL (36.4-46.3); Red Blood Count 5.49 M/uL (4.20-5.40); White Blood Count 5.96 K/ul (4.8-10.8)
[2024-12-10 17:18] LABS: Albumin Globulin Ratio 1.6 (0.9-2); Albumin Level 4.6 gm/dl (3.4-5.0); BUN Creatinine Ratio 17.3 (10-20); Bilirubin,Total 0.6 mg/dl (0.2-1.0); Calcium 9.9 mg/dl (8.6-10.3); Creatinine Clr Calc Pharmacy 33.8 ml/min; Globulin 2.8 gm/dl (2.5-4.0); Magnesium 2.2 mg/dl (1.7-2.4); Total Protein 7.4 gm/dl (6.0-8.3)
[2024-12-10 17:25] LABS: Troponin I High Sensitivity 5.7 pg/ml (0-14)
--- NOTE | 2024-12-10 17:29 | XRay Report ---
Chest radiograph, one view History: Chest pain Comparison: 03/30/2017 Findings: Single AP view of the chest performed. No focal consolidation or pleural effusion. No pneumothorax. The cardiomediastinal silhouette is within normal limits. Normal pulmonary vascularity. No evidence for lymphadenopathy. No visualized bony or soft tissue abnormality. Impression: Normal chest radiograph Electronically signed by Samir Oquendo 12-10-2024 5:28 PM
[2024-12-10 17:34] LABS: Thyroid Stimulating Hormone 2.919 uIu/ml (0.300-4.500)
[2024-12-10] MEDS: OPTIRAY 320 125ml IV ONE (18:09)
[2024-12-10 18:17] LABS: Adenovirus PCR Not Detected (NotDetected); Bordetella parapertussis PCR Not Detected (NotDetected); Bordetella pertussis PCR Not Detected (NotDetected); Chlamydia pneumoniae PCR Not Detected (NotDetected); Coronavirus 229E PCR Not Detected (NotDetected); Coronavirus CoV-2 (COVID19)PCR Not Detected (NotDetected); Coronavirus HKU1 PCR Not Detected (NotDetected); Coronavirus NL63 PCR Not Detected (NotDetected); Coronavirus OC43PCR Not Detected (NotDetected); Human Metapneumovirus PCR Not Detected (NotDetected); Influenza A PCR Not Detected (NotDetected); Influenza B PCR Not Detected (NotDetected); Mycoplasma pneumoniae PCR Not Detected (NotDetected); Parainfluenza Virus 1 PCR Not Detected (NotDetected); Parainfluenza Virus 2 PCR Not Detected (NotDetected); Parainfluenza Virus 3 PCR Not Detected (NotDetected); Parainfluenza Virus 4 PCR Not Detected (NotDetected); Respiratory Syncytial VirusPCR Not Detected (NotDetected); Rhinovirus/Enterovirus PCR Not Detected (NotDetected)
--- NOTE | 2024-12-10 18:23 | CT Scan Report ---
Head CT without contrast CT angiogram of the neck CT angiogram of the brain with contrast Provided History: Neuro deficit Comparison: None Technique: HEAD CT: Using multidetector thin collimation helical acquisition technique, axial, coronal and sagittal CT images from the skull base to the vertex were obtained without intravenous contrast. HEAD and NECK CTA: During rapid bolus intravenous injection of nonionic contrast material, axial images were obtained using thin collimation multidetector helical technique from the base of the neck through the Vertex of vertex of the head. This CT angiogram data was reconstructed at thin intervals with mild overlap. 3D reconstructions were obtained. The axial source images, multiplanar reformations, 3D reconstructions in both maximum intensity projection display and volume rendered models were reviewed. Dose reduction techniques were achieved by using automatic exposure control and/or adjustment of mA and/or kV according to patient size and/or use of iterative reconstruction technique. Findings: Head CT: There is no intracranial hemorrhage, mass effect, or midline shift. Mascorro/white matter differentiation in both cerebral hemispheres is preserved. Ventricles are proportionate to the cerebral sulci. There is mild generalized cerebral atrophy. Head CTA demonstrates no aneurysm or stenosis of the major intracranial arteries. Neck CTA demonstrates no stenosis of the major cervical arteries. Mild calcification of the carotid bulbs without associated stenosis. The origins of the great vessels from the aortic arch are patent. The normal distal right internal carotid artery measures 5 mm. The normal distal left internal carotid artery measures 5 mm. No mass is noted within the visualized portions of the cervical soft tissues or lung apices. Impression: 1. Head CTA demonstrates no aneurysm or stenosis of the major intracranial arteries, 2. Neck CTA demonstrates no stenosis of the major cervical arteries. 3. No intracranial hemorrhage on the noncontrast head CT. The study was analyzed using artificial intelligence software for large vessel occlusion detection. Electronically signed by Samir Oquendo 12-10-2024 6:21 PM
[2024-12-10 18:59] LABS: Appearance Urine Clear (Clear); Bacteria Urine Automated None Seen (None Seen); Bilirubin Urine Negative (Negative); Blood Urine Negative (Negative); Cast Urine Automated 0-2 /lpf (0-2); Color Urine Yellow; Epithelial Cell Urine Auto 0-2 /hpf (0-2); Glucose Urine UA Negative (Negative); Ketones Urine Negative (Negative); Leukocyte Esterase Urine Trace (Negative); Nitrite Urine Negative (Negative); Protein Urine Negative (Negative); RBC Urine Automated 0-2 /hpf (0-2); Urobilinogen Urine Negative (Negative); WBC Urine Automated 0-5 /hpf (0-5)
[2024-12-10 19:17] LABS: Prothrombin Time 11.2 Seconds (9.0-12.0)
--- NOTE | 2024-12-10 21:09 | History & Physical Report ---
Date of Service December 10, 2024 Assessment & Plan (1) Acute confusion: Plan: 84yo female with acute confusion and forgetfulness today. Patient with no additional neurologic complaints. Workup thus far is unremarkable including a normal CBC, BMP, LFTs, TSH, UA and respiratory Biofire panel. CT Head and CTA- Head/Neck are unremarkable. Unclear etiology at this time. Differential to include CVA, possible progressive cognitive decline - family does endorse some episodes of forgetfulness starting in early October. Possibly depression/anxiety and poor sleep largely contributing. Patient has had a lot of psychosocial stressors over the last several weeks and has more recently been losing sleep and possibly perseverating over the possibility of her bank accounts being hacked. -Observation to medical -MRI brain -Will check urine culture -Frequent orientation and delirium prevention strategies -Trial of Remeron 15mg po qHS to be given tonight -Would also consider starting Prozac 10mg po daily - patient would need outpatient followup with these medications -If no improvement, patient may benefit from additional cognitive testing to assess for possible dementia Plan Chronic Medical Issues: CKD - BUN and Cr near baseline. Patient with no urinary complaints GERD - Continue Pepcid - dose recently decreased from 40mg - 20mg by PCP Urinary incontinence - chronic. Continue Myrbetriq F/E/N - Encourage fluids. Electrolytes WNL. Regular diet Ppx - low risk for DVT Code - Full per discussion with patient Dispo - Observation to medical History of Present Illness Chief Complaint: confusion Primary Care Provider: Yoanna Hernández MD Maryana Madrigal is a pleasant 84yo female with history of CKD and GERD presenting from home with acute confusion. Patient lives at home and is independent. Her family reports that since early October she has had some intermittent episodes of confusion. Theses have been occurring multiple times daily (3-5) and typically involve patient not remembering what day it is or asking the same questions multiple times. 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 Today patient woke up and was very confused. She didn't know what day it was. Patient's son was in the ER earlier today - patient's told this to the patient but the patient did not recall being told. She was asking the same questions over and over and insisted that she was not told about her son being in the ER. Patient has had a very stressful couple of weeks - they have lost several distant family members and acquaintances of late. Patient reports that watching the news and keeping up with current events causes her a lot of stress. Over the last week she has been spending a lot of time on the computer researching how to protect her bank accounts from being hacked. Her reports that she has been on the computer all day for the last several days and that she hasn't been sleeping well at night. This has caused her a lot of stress and anxiety as well. Patient has had a slight headache; otherwise patient denies fever, chills, visual changes, chest pain, palpitations, cough, SOB, abdominal pain, nausea, vomiting, diarrhea, constipation, urinary complaints. Family denies speech deficits. Mini cognitive exam 05/23/24 patient scored 5/5 Allergies Allergy/AdvReac Type Severity Reaction Status Date / Time nitrofurantoin Allergy Intermediate HIVES,N&V Verified 11/28/24 13:38 Kvftbqs-DUD-UrX Reductase AdvReac Unknown RESTLESS Verified 11/28/24 13:38 Inhibitor LEG/CRAMPING [Jxfrcla-Olm-Ckg Reductase Inhibitor] Home Medications Medication Instructions Recorded Confirmed Type calcium carbonate (Calcium 600) 600 mg PO DAILY 05/21/20 11/28/24 History cholecalciferol (vitamin D3) 50 50 mcg PO DAILY 05/21/20 11/28/24 History mcg (2,000 unit) capsule multivitamin (Daily Multi-Vitamin 1 tab PO QAM 05/21/20 11/28/24 History tablet) Myrbetriq 25 mg tablet,extended 25 mg PO DAILY #90 tabs 06/23/24 11/28/24 Rx release (mirabegron) alendronate 70 mg tablet (Fosamax) 70 mg PO .COMPLEX #12 tabs 08/16/24 11/28/24 Rx famotidine 40 mg tablet 20 mg (1/2 x 40 mg) PO DAILY #90 11/28/24 11/28/24 Rx tabs Past Med/Surg History Problem List Acute confusion (Acute) CKD stage 3a, GFR 45-59 ml/min Scoliosis (Chronic) Lumbar stenosis with neurogenic claudication Actinic keratosis (Acute) Cyst of kidney, acquired (Acute) Gastroesophageal reflux disease (Chronic) Hyperlipidemia (Chronic) Lumbar radiculopathy (Acute) Osteoarthritis, chronic (Acute) Elevated blood pressure reading in office without diagnosis of hypertension Hand arthritis Osteoporosis SNHL (sensorineural hearing loss) Urinary incontinence Medical History Family history of melanoma History of basal cell carcinoma Umbilical hernia Sciatica Postmenopausal Basal cell carcinoma of face Surgical History History of back surgery History of cholecystectomy H/O: hysterectomy H/O umbilical hernia repair Family History Father Myocardial infarction Mother Hypertension Aortic aneurysm Father Myocardial infarction Other Family history of melanoma Melanoma Denies family history of Ovarian cancer Prostate cancer Breast cancer Colorectal cancer Social History Smoking Status: Never smoker Second Hand Exposure: No; Do You Dip or Chew Tobacco: No; Hx Alcohol Use: Yes Alcohol type: wine Alcohol Intake Frequency: Monthly or Less Hx Substance Use: No Preferred Language: Belarusian Visual Impairment: No Limitations Hearing Ability: Use of Hearing Aid Strand And Binder Controller Required: No Beliefs That Will Affect Care: None marital status: Current Living Situation: Spouse and Foster Care current occupational status: retired How many Children do You have: 3 Feels Safe at Home: Yes Childhood Exposure to Second-Hand Smoke: Yes Diet: Weight Watchers and regular Diet Comment: Weight Watchers caffeine: Yes during the past year weight has: decreased > 10 lbs Dental Care, Regularly: Yes Physical Activity Frequency: Daily Seatbelt Use: always Sunscreen Use: Yes Assistive Devices: Hearing Aid - Bilateral Review of Systems Review of Systems: All systems reviewed & are unremarkable except as noted in HPI & below Physical Exam Physical Exam: General: patient resting comfortably, NAD, non-toxic in appearance, AA&O to person and location Skin: warm, dry, intact, no rashes or lesions HEENT: NC/AT, PERRL, EOMI, anicteric sclera, conjunctiva without injection, external ear normal to inspection and nontender, nares patent, moist mucus membranes, dentition intact, no oropharyngeal lesions, neck supple, trachea midline, no LAD, no thyromegaly, no JVD Heart: +S1/S2, regular, no m/r/g Lungs: equal air entry bilaterally, no rales/rhonchi/wheezes Abd: +BS, soft, NT/ND, no masses/organomegaly/ascites Ext: warm, 2+ pulses in UE/LE bilaterally, no clubbing/cyanosis or edema Neuro: nonfocal, patient AA&O x 4, speech intact, no facial droop, moving all extremities on command with equal strength 5/5 Results & Data Results & Data Vital Signs (Past 12 Hours) Vital Signs Temp Pulse Pulse Resp BP BP Pulse Ox 12/10/24 20:19 74 12/10/24 18:00 80 18 177/79 H 98 12/10/24 17:28 80 12/10/24 16:50 96 12/10/24 16:16 72 22 164/80 H 98 12/10/24 16:16 12/10/24 15:22 36.5 C 96 H 18 182/93 H 99 O2 Del Method 12/10/24 20:19 12/10/24 18:00 Room Air 12/10/24 17:28 12/10/24 16:50 Room Air 12/10/24 16:16 Room Air 12/10/24 16:16 Room Air 12/10/24 15:22 Room Air Laboratory Results Laboratory Results WBC 5.96 K/ul (4.8-10.8) 12/10/24 16:42 RBC 5.49 M/uL (4.20-5.40) H 12/10/24 16:42 Hgb 15.8 g/dl (12.0-16.0) 12/10/24 16:42 Hct 46.3 % (37.0-47.0) 12/10/24 16:42 MCV 84.3 fL (80.0-100.0) 12/10/24 16:42 MCH 28.8 pg (25.0-34.0) 12/10/24 16:42 MCHC 34.1 g/dL (32.0-36.0) 12/10/24 16:42 RDW Std Deviation 40.5 fL (36.4-46.3) 12/10/24 16:42 RDW Coeff of Ana Laura 13.0 % (11.5-14.5) 12/10/24 16:42 Plt Count 254 K/uL (130-400) 12/10/24 16:42 MPV 10.4 fL (9.4-12.4) 12/10/24 16:42 Immature Gran % (Auto) 0.2 % 12/10/24 16:42 Neut % (Auto) 59.3 % 12/10/24 16:42 Lymph % (Auto) 29.7 % 12/10/24 16:42 Travis % (Auto) 8.7 % 12/10/24 16:42 Eos % (Auto) 1.3 % 12/10/24 16:42 Baso % (Auto) 0.8 % 12/10/24 16:42 Neut # (Auto) 3.53 K/uL (1.40-6.50) 12/10/24 16:42 Lymph # (Auto) 1.77 K/uL (1.20-3.40) 12/10/24 16:42 Travis # (Auto) 0.52 K/uL (0.11-0.59) 12/10/24 16:42 Eos # (Auto) 0.08 K/uL (0.00-0.50) 12/10/24 16:42 Baso # (Auto) 0.05 K/uL (0.00-0.20) 12/10/24 16:42 Immature Gran # (Auto) 0.01 K/uL (0.01-0.20) 12/10/24 16:42 PT 11.2 Seconds (9.0-12.0) 12/10/24 18:09 INR 1.0 (0.9-1.1) 12/10/24 18:09 Sodium 141 mmol/L (136-145) 12/10/24 16:42 Potassium 4.0 mmol/L (3.5-5.1) 12/10/24 16:42 Chloride 107 mmol/L (98-107) 12/10/24 16:42 Carbon Dioxide 26 mmol/L (21-32) 12/10/24 16:42 Anion Gap 8 (3-11) 12/10/24 16:42 BUN 17 mg/dl (6-23) 12/10/24 16:42 Creatinine 0.98 mg/dl (0.6-1.2) 12/10/24 16:42 Est Cr Clr Drug Dosing 33.8 ml/min 12/10/24 16:42 eGFR 56.92 12/10/24 16:42 BUN/Creatinine Ratio 17.3 (10-20) 12/10/24 16:42 Glucose 109 mg/dl (70-99(Fasting)) H 12/10/24 16:42 Lactate 1.2 mmol/L (0.4-2.0) 12/10/24 17:06 Calcium 9.9 mg/dl (8.6-10.3) 12/10/24 16:42 Magnesium 2.2 mg/dl (1.7-2.4) 12/10/24 16:42 Total Bilirubin 0.6 mg/dl (0.2-1.0) 12/10/24 16:42 AST 18 U/L (13-39) 12/10/24 16:42 ALT 16 U/L (7-52) 12/10/24 16:42 Alkaline Phosphatase 42 U/L (34-104) 12/10/24 16:42 Troponin I High Sens 5.7 pg/ml (0-14) 12/10/24 16:42 Total Protein 7.4 gm/dl (6.0-8.3) 12/10/24 16:42 Albumin 4.6 gm/dl (3.4-5.0) 12/10/24 16:42 Globulin 2.8 gm/dl (2.5-4.0) 12/10/24 16:42 Albumin/Globulin Ratio 1.6 (0.9-2) 12/10/24 16:42 TSH 2.919 uIu/ml (0.300-4.500) 12/10/24 16:42 Urine Color Yellow 12/10/24 18:37 Urine Appearance Clear (Clear) 12/10/24 18:37 Urine pH 7.0 (4.5-7.5) 12/10/24 18:37 Ur Specific [place] 1.020 (1.000-1.030) 12/10/24 18:37 Urine Protein Negative (Negative) 12/10/24 18:37 Urine Glucose (UA) Negative (Negative) 12/10/24 18:37 Urine Ketones Negative (Negative) 12/10/24 18:37 Urine Blood Negative (Negative) 12/10/24 18:37 Urine Nitrite Negative (Negative) 12/10/24 18:37 Urine Bilirubin Negative (Negative) 12/10/24 18:37 Urine Urobilinogen Negative (Negative) 12/10/24 18:37 Ur Leukocyte Esterase Trace (Negative) H 12/10/24 18:37 Urine WBC (Auto) 0-5 /hpf (0-5) 12/10/24 18:37 Urine RBC (Auto) 0-2 /hpf (0-2) 12/10/24 18:37 U Hyaline Cast (Auto) 0-2 /lpf (0-2) 12/10/24 18:37 U Epithel Cells (Auto) 0-2 /hpf (0-2) 12/10/24 18:37 Urine Bacteria (Auto) None Seen (None Seen) 12/10/24 18:37 Adenovirus (PCR) Not Detected (NotDetected) 12/10/24 17:09 B. pertussis DNA (PCR) Not Detected (NotDetected) 12/10/24 17:09 B.parapertussis DNA PCR Not Detected (NotDetected) 12/10/24 17:09 C. pneumoniae DNA (PCR) Not Detected (NotDetected) 12/10/24 17:09 Coronavirus OC43 (PCR) Not Detected (NotDetected) 12/10/24 17:09 Coronavirus HKU1 (PCR) Not Detected (NotDetected) 12/10/24 17:09 Coronavirus 229E (PCR) Not Detected (NotDetected) 12/10/24 17:09 SARS-CoV-2 (PCR) Not Detected (NotDetected) 12/10/24 17:09 Coronavirus NL63 (PCR) Not Detected (NotDetected) 12/10/24 17:09 Human Metapneumovir PCR Not Detected (NotDetected) 12/10/24 17:09 Influenza Type A (PCR) Not Detected (NotDetected) 12/10/24 17:09 Influenza Type B (PCR) Not Detected (NotDetected) 12/10/24 17:09 M. pneumoniae (PCR) Not Detected (NotDetected) 12/10/24 17:09 Parainfluenza 1 (PCR) Not Detected (NotDetected) 12/10/24 17:09 Parainfluenza 2 (PCR) Not Detected (NotDetected) 12/10/24 17:09 Parainfluenza 3 (PCR) Not Detected (NotDetected) 12/10/24 17:09 Parainfluenza 4 (PCR) Not Detected (NotDetected) 12/10/24 17:09 RSV (PCR) Not Detected (NotDetected) 12/10/24 17:09 Entero/Rhino (PCR) Not Detected (NotDetected) 12/10/24 17:09 Impressions Chest X-Ray 12/10/24 16:50 Chest radiograph, one view History: Chest pain Comparison: 03/30/2017 Findings: Single AP view of the chest performed. No focal consolidation or pleural effusion. No pneumothorax. The cardiomediastinal silhouette is within normal limits. Normal pulmonary vascularity. No evidence for lymphadenopathy. No visualized bony or soft tissue abnormality. Impression: Normal chest radiograph Electronically signed by Samir Oquendo 12-10-2024 5:[address] 12/10/24 16:[address] without contrast CT angiogram of the neck CT angiogram of the brain with contrast Provided History: Neuro deficit Comparison: None Technique: HEAD CT: Using multidetector thin collimation helical acquisition technique, axial, coronal and sagittal CT images from the skull base to the vertex were obtained without intravenous contrast. HEAD and NECK CTA: During rapid bolus intravenous injection of nonionic contrast material, axial images were obtained using thin collimation multidetector helical technique from the base of the neck through the Vertex of vertex of the head. This CT angiogram data was reconstructed at thin intervals with mild overlap. 3D reconstructions were obtained. The axial source images, multiplanar reformations, 3D reconstructions in both maximum intensity projection display and volume rendered models were reviewed. Dose reduction techniques were achieved by using automatic exposure control and/or adjustment of mA and/or kV according to patient size and/or use of iterative reconstruction technique. Findings: Head CT: There is no intracranial hemorrhage, mass effect, or midline shift. Mascorro/white matter differentiation in both cerebral hemispheres is preserved. Ventricles are proportionate to the cerebral sulci. There is mild generalized cerebral atrophy. Head CTA demonstrates no aneurysm or stenosis of the major intracranial arteries. Neck CTA demonstrates no stenosis of the major cervical arteries. Mild calcification of the carotid bulbs without associated stenosis. The origins of the great vessels from the aortic arch are patent. The normal distal right internal carotid artery measures 5 mm. The normal distal left internal carotid artery measures 5 mm. No mass is noted within the visualized portions of the cervical soft tissues or lung apices. Impression: 1. Head CTA demonstrates no aneurysm or stenosis of the major intracranial arteries, 2. Neck CTA demonstrates no stenosis of the major cervical arteries. 3. No intracranial hemorrhage on the noncontrast head CT. The study was analyzed using artificial intelligence software for large vessel occlusion detection. Electronically signed by Samir Oquendo 12-10-2024 6:21 PM Head CTA 12/10/24 16:[address] without contrast CT angiogram of the neck CT angiogram of the brain with contrast Provided History: Neuro deficit Comparison: None Technique: HEAD CT: Using multidetector thin collimation helical acquisition technique, axial, coronal and sagittal CT images from the skull base to the vertex were obtained without intravenous contrast. HEAD and NECK CTA: During rapid bolus intravenous injection of nonionic contrast material, axial images were obtained using thin collimation multidetector helical technique from the base of the neck through the Vertex of vertex of the head. This CT angiogram data was reconstructed at thin intervals with mild overlap. 3D reconstructions were obtained. The axial source images, multiplanar reformations, 3D reconstructions in both maximum intensity projection display and volume rendered models were reviewed. Dose reduction techniques were achieved by using automatic exposure control and/or adjustment of mA and/or kV according to patient size and/or use of iterative reconstruction technique. Findings: Head CT: There is no intracranial hemorrhage, mass effect, or midline shift. Mascorro/white matter differentiation in both cerebral hemispheres is preserved. Ventricles are proportionate to the cerebral sulci. There is mild generalized cerebral atrophy. Head CTA demonstrates no aneurysm or stenosis of the major intracranial arteries. Neck CTA demonstrates no stenosis of the major cervical arteries. Mild calcification of the carotid bulbs without associated stenosis. The origins of the great vessels from the aortic arch are patent. The normal distal right internal carotid artery measures 5 mm. The normal distal left internal carotid artery measures 5 mm. No mass is noted within the visualized portions of the cervical soft tissues or lung apices. Impression: 1. Head CTA demonstrates no aneurysm or stenosis of the major intracranial arteries, 2. Neck CTA demonstrates no stenosis of the major cervical arteries. 3. No intracranial hemorrhage on the noncontrast head CT. The study was analyzed using artificial intelligence software for large vessel occlusion detection. Electronically signed by Samir Oquendo 12-10-2024 6:21 PM Neck CTA 12/10/24 16:[address] without contrast CT angiogram of the neck CT angiogram of the brain with contrast Provided History: Neuro deficit Comparison: None Technique: HEAD CT: Using multidetector thin collimation helical acquisition technique, axial, coronal and sagittal CT images from the skull base to the vertex were obtained without intravenous contrast. HEAD and NECK CTA: During rapid bolus intravenous injection of nonionic contrast material, axial images were obtained using thin collimation multidetector helical technique from the base of the neck through the Vertex of vertex of the head. This CT angiogram data was reconstructed at thin intervals with mild overlap. 3D reconstructions were obtained. The axial source images, multiplanar reformations, 3D reconstructions in both maximum intensity projection display and volume rendered models were reviewed. Dose reduction techniques were achieved by using automatic exposure control and/or adjustment of mA and/or kV according to patient size and/or use of iterative reconstruction technique. Findings: Head CT: There is no intracranial hemorrhage, mass effect, or midline shift. Mascorro/white matter differentiation in both cerebral hemispheres is preserved. Ventricles are proportionate to the cerebral sulci. There is mild generalized cerebral atrophy. Head CTA demonstrates no aneurysm or stenosis of the major intracranial arteries. Neck CTA demonstrates no stenosis of the major cervical arteries. Mild calcification of the carotid bulbs without associated stenosis. The origins of the great vessels from the aortic arch are patent. The normal distal right internal carotid artery measures 5 mm. The normal distal left internal carotid artery measures 5 mm. No mass is noted within the visualized portions of the cervical soft tissues or lung apices. Impression: 1. Head CTA demonstrates no aneurysm or stenosis of the major intracranial arteries, 2. Neck CTA demonstrates no stenosis of the major cervical arteries. 3. No intracranial hemorrhage on the noncontrast head CT. The study was analyzed using artificial intelligence software for large vessel occlusion detection. Electronically signed by Samir Oquendo 12-10-2024 6:21 PM PG Care Time/CCT Total # of Minutes Spent Total Time Spent with Patient: Total time spent is greater than 50% in coordination of care (as documented) at patient's floor/unit and/or counseling patient: Coding Level of Care Code 87037 INT INP/OBS CARE 3/75MIN Diagnoses Acute confusion R41.0
[2024-12-10] MEDS ORDERED: ONDANSETRON INJ 2 MG/ML 2 ML VIAL IV PRN (23:04)
[2024-12-10] MEDS ORDERED: DOCUSATE SODIUM 100 MG CAP PO PRN (23:04)
[2024-12-10] MEDS: ACETAMINOPHEN 325 MG TAB PO PRN (23:36)
[2024-12-10] MEDS: MELATONIN 3 MG TAB PO PRN (23:36)
[2024-12-10] MEDS: MIRTAZAPINE TAB 15 MG TAB PO SCH (23:37)
--- NOTE | 2024-12-11 01:39 | Magnetic Resonance Report ---
Exam(s): MRI HEAD Without Contrast EXAM: MR Head Without Intravenous Contrast CLINICAL HISTORY: Reason for exam: confusion. TECHNIQUE: Magnetic resonance images of the head/brain without intravenous contrast in multiple planes. COMPARISON: Prior head CT from June 09, 2025. FINDINGS: Brain: Minimal nonspecific white matter changes. The flow voids at the base of the brain are intact. No mass. No hemorrhage. No acute infarct. Ventricles: Moderate ventriculomegaly. Bones/joints: Unremarkable. No acute fracture. Sinuses: Chronic ethmoid sinusitis. No acute sinusitis. Mastoid air cells: Unremarkable as visualized. No mastoid effusion. Orbits: Bilateral lens replacements. IMPRESSION: No evidence of acute intracranial pathology. Electronically signed by: Rosina Adkins MD 12/11/24 01:38 AM
[2024-12-11 06:58] LABS: Hematocrit (blood only) 42.2 % (37.0-47.0); Hemoglobin 14.1 g/dl (12.0-16.0); Mean Corpuscular Hgb Conc 33.4 g/dL (32.0-36.0); Mean Corpuscular Volume 83.9 fL (80.0-100.0); Mean Platelet Volume 9.9 fL (9.4-12.4); Platelet Count 228 K/uL (130-400); RDW Coefficient of Variation 13.2 % (11.5-14.5); RDW Standard Deviation 40.4 fL (36.4-46.3); Red Blood Count 5.03 M/uL (4.20-5.40); White Blood Count 5.93 K/ul (4.8-10.8)
[2024-12-11 07:22] LABS: BUN Creatinine Ratio 17.2 (10-20); Calcium 9.6 mg/dl (8.6-10.3); Creatinine Clr Calc Pharmacy 34.2 ml/min; Potassium 4.2 mmol/L (3.5-5.1)
[2024-12-11] MEDS: VIBEGRON 75 MG TAB PO SCH (07:27)
[2024-12-11] MEDS: FAMOTIDINE 20 MG TAB PO SCH (07:27)
--- NOTE | 2024-12-11 08:32 | Hospitalist Progress Note ---
Date of Service December 11, 2024 Assessment & Plan (1) Acute confusion: Plan: 84yo female with acute confusion and forgetfulness, no other neurological complaints. Normal WBC/BMP/LFT/TSH on admission. UA not appearing infected Biofire negative CT head, CTA head/neck no acute finding MRI brain negative Urine cx ordered as does have leuk esterase,however no sx as she does typically get sx when has infection and do not suspect has infection at this time B12 wnl 754, vit D 58.2 On admission, Trialed remeron 15mg HS last night but hypotension/dizziness when attempting to use bathroom this morning, suspected vasovagal by resident team on eval and during my encounter I suspect was 2nd to new start Remeron. Was discussed with supervising provider and patient and STOPPED further remeron given suspected hypotension/dizziness 2nd to orthostatic hypotension from medication but could also have aspect of vasovagal from straining for BM MENTATION BACK TO BASELINE, DID GET GOOD SLEEP REPORTED --Suspect poor sleep/insomnia was contributing w/ stressors of loosing family/friends recently and increased phycological stressors -->Discussed trial vistaril 10mg HS tonight for less side effects but given AOX3 decision for natural melatonin 3mg and making scheduled which has been done for tonight PT/OT consults placed to ensure stable/no issues for dc in AM as discussed/updated family CONSIDERATION for 10mg HS PRN if ineffective was discussed as well as prn 10mg dose for anxiety at dc if needed and was discussed w/ primary care provider who saw recently. Interestingly to note had called into office for prn ativan this past week and rec'd to have appt to discuss for safer options/possible buspar but PCP agreeable to low dose vistaril prn and could use 1-2x/daily 10mg dose at dc for anxiety/depression for week course until further discussion w/ PCP/possible start buspar or other SSRI/sleep aid (2) Acute insomnia: Plan: resolved w/ good sleep last night, discussed wake/sleep schedules and sleep hygiene importance patient to move to window bed/family to stay and keep busy/tire her out today and plans for scheduled melatonin 3mg HS for tonight/possible low dose vistaril if needed/ineffective to decrease side effects plan f/u PCP at dc (3) Depression with anxiety: Plan: working on sleep, support provided. discussed vistaril prn if needed pending response to above Plan DVT proph: SCDs added while remaining inpatient but suspect short stay/discharge in AM and will defer chemoproph for now/add in AM if needing ongoing inpatient stay Dispo: continued inpatient stay, melatonin made scheduled/vistaril 10mg hs prn if ineffective and PT/OT consulted and hopefully dc 12/12 Family updated at bedside, /daughter/son-in-law Admission and Anticipated Discharge Date Admission Date: December 10, 2024 Supervising Physician Co-Signing Physician Notes The patient was not seen by me. The chart was reviewed. Case discussed with EKATERINA Valencia. Agree with assessment and plan Subjective Eval this morning. Patient had some lightheaded/dizziness up to move bowels this morning, notable new rx remeron. Resolution presently, sitting up in bed, /daughter and son-in-law in room. Discussed avoiding further remeron. She does endorse significant stressors at home/loosing family, but slept last night well and remains alert/oriented. Family at bedside encouraged to stay/talk/support to tire out, work on day/sleep pattern. Discussed possible low dose Vistaril if needed but also noted as got sleep/mentation to baseline that we could just schedule her melatonin as natural and if effective could just use this. Alternatively can trial vistaril if not effective but will monitor overnight to ensure no issues given events this morning/etc. Discussed MRI brain negative for acute CVA. No CP/SOB, no nausea/vomiting or urinary sx which she does typically get when has UTI. Discussed PT?OT consults placed and plan for dc in AM if stable and will touch base w/ her PCP regarding meds. Physical Exam 2 Physical Exam: General: 84yo female sitting up in bed, family at bedside, pleasant/cooperative, alert/oriented x 4 HEENT; head atraumatic, normocephalic, mm, trachea midlline Resp: even/unlabored, no wheezing/crackles rales or cough, on room air CV: RRR, no significant m/r/g, no pitting edema GI: +BS, soft/slight distension but NONTENDER no fisher MSK/Neuro: nonfocal, not confused, answering questions appropriately, no focal loss of strength, moves all extremities/follows commands Psych: AOx3, cooperative Results & Data Results & Data Vital Signs (Past 12 Hours) Vital Signs Temp Pulse Resp BP BP Pulse Ox O2 Del Method 12/11/24 07:09 100/64 12/11/24 06:54 36.4 C L 64 16 114/68 94 Room Air 12/10/24 23:07 36.8 C 93 H 18 153/78 H 97 Room Air Laboratory Results 12/11/24 06:10 12/11/24 06:10 B12 754 Diagnostic Findings Chest X-Ray 12/10/24 16:50 Chest radiograph, one view History: Chest pain Comparison: 03/30/2017 Findings: Single AP view of the chest performed. No focal consolidation or pleural effusion. No pneumothorax. The cardiomediastinal silhouette is within normal limits. Normal pulmonary vascularity. No evidence for lymphadenopathy. No visualized bony or soft tissue abnormality. Impression: Normal chest radiograph Electronically signed by Samir Oquendo 12-10-2024 5:[address] 12/10/24 16:[address] without contrast CT angiogram of the neck CT angiogram of the brain with contrast Provided History: Neuro deficit Comparison: None Technique: HEAD CT: Using multidetector thin collimation helical acquisition technique, axial, coronal and sagittal CT images from the skull base to the vertex were obtained without intravenous contrast. HEAD and NECK CTA: During rapid bolus intravenous injection of nonionic contrast material, axial images were obtained using thin collimation multidetector helical technique from the base of the neck through the Vertex of vertex of the head. This CT angiogram data was reconstructed at thin intervals with mild overlap. 3D reconstructions were obtained. The axial source images, multiplanar reformations, 3D reconstructions in both maximum intensity projection display and volume rendered models were reviewed. Dose reduction techniques were achieved by using automatic exposure control and/or adjustment of mA and/or kV according to patient size and/or use of iterative reconstruction technique. Findings: Head CT: There is no intracranial hemorrhage, mass effect, or midline shift. Mascorro/white matter differentiation in both cerebral hemispheres is preserved. Ventricles are proportionate to the cerebral sulci. There is mild generalized cerebral atrophy. Head CTA demonstrates no aneurysm or stenosis of the major intracranial arteries. Neck CTA demonstrates no stenosis of the major cervical arteries. Mild calcification of the carotid bulbs without associated stenosis. The origins of the great vessels from the aortic arch are patent. The normal distal right internal carotid artery measures 5 mm. The normal distal left internal carotid artery measures 5 mm. No mass is noted within the visualized portions of the cervical soft tissues or lung apices. Impression: 1. Head CTA demonstrates no aneurysm or stenosis of the major intracranial arteries, 2. Neck CTA demonstrates no stenosis of the major cervical arteries. 3. No intracranial hemorrhage on the noncontrast head CT. The study was analyzed using artificial intelligence software for large vessel occlusion detection. Electronically signed by Samir Oquendo 12-10-2024 6:21 PM Head CTA 12/10/24 16:[address] without contrast CT angiogram of the neck CT angiogram of the brain with contrast Provided History: Neuro deficit Comparison: None Technique: HEAD CT: Using multidetector thin collimation helical acquisition technique, axial, coronal and sagittal CT images from the skull base to the vertex were obtained without intravenous contrast. HEAD and NECK CTA: During rapid bolus intravenous injection of nonionic contrast material, axial images were obtained using thin collimation multidetector helical technique from the base of the neck through the Vertex of vertex of the head. This CT angiogram data was reconstructed at thin intervals with mild overlap. 3D reconstructions were obtained. The axial source images, multiplanar reformations, 3D reconstructions in both maximum intensity projection display and volume rendered models were reviewed. Dose reduction techniques were achieved by using automatic exposure control and/or adjustment of mA and/or kV according to patient size and/or use of iterative reconstruction technique. Findings: Head CT: There is no intracranial hemorrhage, mass effect, or midline shift. Mascorro/white matter differentiation in both cerebral hemispheres is preserved. Ventricles are proportionate to the cerebral sulci. There is mild generalized cerebral atrophy. Head CTA demonstrates no aneurysm or stenosis of the major intracranial arteries. Neck CTA demonstrates no stenosis of the major cervical arteries. Mild calcification of the carotid bulbs without associated stenosis. The origins of the great vessels from the aortic arch are patent. The normal distal right internal carotid artery measures 5 mm. The normal distal left internal carotid artery measures 5 mm. No mass is noted within the visualized portions of the cervical soft tissues or lung apices. Impression: 1. Head CTA demonstrates no aneurysm or stenosis of the major intracranial arteries, 2. Neck CTA demonstrates no stenosis of the major cervical arteries. 3. No intracranial hemorrhage on the noncontrast head CT. The study was analyzed using artificial intelligence software for large vessel occlusion detection. Electronically signed by Samir Oquendo 12-10-2024 6:21 PM Neck CTA 12/10/24 16:[address] without contrast CT angiogram of the neck CT angiogram of the brain with contrast Provided History: Neuro deficit Comparison: None Technique: HEAD CT: Using multidetector thin collimation helical acquisition technique, axial, coronal and sagittal CT images from the skull base to the vertex were obtained without intravenous contrast. HEAD and NECK CTA: During rapid bolus intravenous injection of nonionic contrast material, axial images were obtained using thin collimation multidetector helical technique from the base of the neck through the Vertex of vertex of the head. This CT angiogram data was reconstructed at thin intervals with mild overlap. 3D reconstructions were obtained. The axial source images, multiplanar reformations, 3D reconstructions in both maximum intensity projection display and volume rendered models were reviewed. Dose reduction techniques were achieved by using automatic exposure control and/or adjustment of mA and/or kV according to patient size and/or use of iterative reconstruction technique. Findings: Head CT: There is no intracranial hemorrhage, mass effect, or midline shift. Mascorro/white matter differentiation in both cerebral hemispheres is preserved. Ventricles are proportionate to the cerebral sulci. There is mild generalized cerebral atrophy. Head CTA demonstrates no aneurysm or stenosis of the major intracranial arteries. Neck CTA demonstrates no stenosis of the major cervical arteries. Mild calcification of the carotid bulbs without associated stenosis. The origins of the great vessels from the aortic arch are patent. The normal distal right internal carotid artery measures 5 mm. The normal distal left internal carotid artery measures 5 mm. No mass is noted within the visualized portions of the cervical soft tissues or lung apices. Impression: 1. Head CTA demonstrates no aneurysm or stenosis of the major intracranial arteries, 2. Neck CTA demonstrates no stenosis of the major cervical arteries. 3. No intracranial hemorrhage on the noncontrast head CT. The study was analyzed using artificial intelligence software for large vessel occlusion detection. Electronically signed by Samir Oquendo 12-10-2024 6:21 PM Brain MRI 12/10/24 20:16 Exam(s): MRI HEAD Without Contrast EXAM: MR Head Without Intravenous Contrast CLINICAL HISTORY: Reason for exam: confusion. TECHNIQUE: Magnetic resonance images of the head/brain without intravenous contrast in multiple planes. COMPARISON: Prior head CT from June 09, 2025. FINDINGS: Brain: Minimal nonspecific white matter changes. The flow voids at the base of the brain are intact. No mass. No hemorrhage. No acute infarct. Ventricles: Moderate ventriculomegaly. Bones/joints: Unremarkable. No acute fracture. Sinuses: Chronic ethmoid sinusitis. No acute sinusitis. Mastoid air cells: Unremarkable as visualized. No mastoid effusion. Orbits: Bilateral lens replacements. IMPRESSION: No evidence of acute intracranial pathology. Electronically signed by: Rosina Adkins MD 12/11/24 01:38 AM PG Care Time/CCT Total # of Minutes Spent Total Time Spent with Patient: Total time spent is greater than 50% in coordination of care (as documented) at patient's floor/unit and/or counseling patient: Coding Level of Care Code 05612 SUB INP/OBS CARE 3/50MIN Diagnoses Acute confusion R41.0 Acute insomnia G47.00 Depression with anxiety F41.8
--- NOTE | 2024-12-11 13:40 | Electrocardiogram Report ---
Test Reason : Blood Pressure : */* mmHG Vent. Rate : 74 BPM Atrial Rate : 74 BPM P-R Int : 170 ms QRS Dur : 70 ms QT Int : 372 ms P-R-T Axes : 54 24 63 degrees QTcB Int : 412 ms Normal sinus rhythm Left atrial enlargement RSR' or QR pattern in V1 suggests right ventricular conduction delay Normal ECG When compared with ECG of 30-Mar-2017 23:03, Vent. rate has decreased by 41 bpm Confirmed by Mandi Solis ([id number]) on 12/11/2024 1:40:05 PM Referred By: REFERRED SELF Confirmed By: Mandi Solis
[2024-12-11 15:27] VITALS: TEMP 98.2
[2024-12-11] MEDS ORDERED: hydrOXYzine HCl 10 MG TAB PO PRN (17:14)
[2024-12-11] MEDS: MELATONIN 3 MG TAB PO SCH (20:30)
[2024-12-11 23:33] VITALS: O2SAT 95
[2024-12-12 07:00] VITALS: RESP 16
[2024-12-12 07:58] LABS: BUN Creatinine Ratio 19.6 (10-20); Calcium 9.1 mg/dl (8.6-10.3); Creatinine Clr Calc Pharmacy 33.2 ml/min; Potassium 3.9 mmol/L (3.5-5.1)
--- NOTE | 2024-12-12 08:22 | Hospitalist Progress Note ---
Date of Service December 12, 2024 Assessment & Plan (1) Acute confusion: Plan: 84yo female with acute confusion and forgetfulness, no other neurological complaints. Normal WBC/BMP/LFT/TSH on admission. UA not appearing infected Biofire negative CT head, CTA head/neck no acute finding MRI brain negative Urine cx ordered as does have leuk esterase,however no sx as she does typically get sx when has infection and do not suspect has infection at this time B12 wnl 754, vit D 58.2 On admission, Trialed remeron 15mg HS last night but hypotension/dizziness when attempting to use bathroom this morning, suspected vasovagal by resident team on eval and during my encounter I suspect was 2nd to new start Remeron. Was discussed with supervising provider and patient and STOPPED further remeron given suspected hypotension/dizziness 2nd to orthostatic hypotension from me dication but could also have aspect of vasovagal from straining for BM MENTATION BACK TO BASELINE, DID GET GOOD SLEEP REPORTED --Suspect poor sleep/insomnia was contributing w/ stressors of loosing f amily/friends recently and increased phycological stressors -->Discussed trial vistaril 10mg HS tonight for less side effects but given AOX3 decision for natural melatonin 3mg and making scheduled which has been done for tonight PT/OT consults placed to ensure stable/no issues for dc in AM as discussed/updated family CONSIDERATION for 10mg HS PRN if ineffective was discussed as well as prn 10mg dose for anxiety at dc if needed and was discussed w/ primary care provider who saw recently. Interestingly to note had called into office for prn ativan this past week and rec'd to have appt to discuss for safer options/possible buspar but PCP agreeable to low dose vistaril prn and could use 1-2x/daily 10mg dose at dc for anxiety/depression for week course until further discussion w/ PCP/possible start buspar or other SSRI/sleep aid 12/12 -- Meltonin 3mg HS scheduled, vistaril 10mg prn available but did not use -- If doing well, short rx vistaril prn, f/u PCP. Rec continue melatonin HS if e ffective and can d/c w/ PCP follow up - PT/OT consulted to ensure no issues prior to dc (2) Acute insomnia: Plan: resolved w/ good sleep last night, discussed wake/sleep schedules and sleep hygiene importance patient to move to window bed/family to stay and keep busy/tire her out today and plans for scheduled melatonin 3mg HS for tonight/possible low dose vistaril if needed/ineffective to decrease side effects plan f/u PCP at [place] (3) Depression with anxiety: Plan: working on sleep, support provided. discussed vistaril prn if needed pending response to above Plan DVT proph: SCDs added while remaining inpatient but suspect short stay/discharge in AM and will defer chemoproph for now/add in AM if needing ongoing inpatient stay Dispo: continued inpatient stay, melatonin made scheduled/vistaril 10mg hs prn if ineffective and PT/OT consulted and hopefully dc 12/12 Family updated at bedside, /daughter/son-in-law Admission and Anticipated Discharge Date Admission Date: December 10, 2024 Results & Data Results & Data Vital Signs (Past 12 Hours) Vital Signs Temp Pulse Resp BP Pulse Ox O2 Del Method 12/12/24 06:59 36.8 C 78 16 130/73 95 Room Air 12/11/24 23:32 36.8 C 70 18 115/65 95 Room Air PG Care Time/CCT Total # of Minutes Spent Total Time Spent with Patient: Total time spent is greater than 50% in coordination of care (as documented) at patient's floor/unit and/or counseling patient: Coding Diagnoses Acute confusion R41.0 Acute insomnia G47.00 Depression with anxiety F41.8
--- NOTE | 2024-12-12 08:46 | Discharge Summary ---
Discharge Summary Date of Service December 12, 2024 Principal Dx & Hospital Course #1 = Principal Diagnosis (1) Acute confusion: 84yo female with acute confusion and forgetfulness, no other neurological complaints. Normal WBC/BMP/LFT/TSH on admission. UA not appearing infected Biofire negative CT head, CTA head/neck no acute finding MRI brain negative Urine cx ordered as does have leuk esterase,however no sx as she does typically get sx when has infection and do not suspect has infection at this time -- cx pending at ms but again no sx B12 wnl 754, vit D 58.2 On admission, Trialed remeron 15mg HS last night but hypotension/dizziness when attempting to use bathroom this morning, suspected vasovagal by resident team on eval and during my encounter I suspect was 2nd to new start Remeron. Was discussed with supervising provider and patient and STOPPED further Remeron given suspected hypotension/dizziness 2nd to orthostatic hypotension from medication but could also have aspect of vasovagal from straining for BM MENTATION BACK TO BASELINE, DID GET GOOD SLEEP REPORTED --Suspect poor sleep/insomnia was contributing w/ stressors of loosing family/friends recently and increased phycological stressors -->Discussed trial vistaril 10mg HS tonight for less side effects but given AOX3 decision for natural melatonin 3mg and made scheduled PM 12/11 and was effective/slept well. At ms, to continue melatonin 3mg HS daily, can increase that dose as well, but given prn anxiety in daytimes at times (however appears great today), did sent rx for vistaril 10mg HS #7 tablets as discussed w/ PCP prior and discussed use w/ patient. As prior discussed w/ PCP, possibly start buspar BID in f/u but would also encourage discussion about low dose SSRI for ongoing sx in meantime and prn meds until full effects noted but encouraged continued discussion /coordination with her primary care provider for ongoing adjustments. Also discussed sleep hygiene, apps, turning lights off/TV off before bed/reading/etc. Patient was 100% alert/oriented, reported slept well and mentation back to baseline. Was discussed with at bedside as well as daughter/family and also encouraged not to drive until knows how this will effect as can make sleepy (but also that that is what we would be wanting if needing to use prn for sleep) F/u PCP encouraged as discussed for ongoing discussions, messaged PCP of course. Would avoid remeron given hypotension following being provided but could consider low dose trazodone alternatively as well IF vistaril ineffective but I suspect 10mg of that would be more than enough for Mrs Madrigal. (2) Acute insomnia: resolved, continue on melatonin, prn vistaril sent if needed given less side effects but only 7 tablets and discussed w/ family to monitor if needing to take but if tolerates could use low dose prn if melatonin ineffective further recs in f/u with PCP pending ongoing effectiveness (3) Depression with anxiety: working on sleep, support provided. discussed vistaril prn if needed pending response to above, mentation appears much improved with good night sleep. outpt f/u as above Notes For Next Care Provider Rec discussion of low dose SSRI if felt indicated vs prn buspar for anxiety vs continued low dose vistaril encourage sleep hygiene/apps on phone f/u urine cx pending at ms but UA not overly convincing for infection and patient without any urinary sx reported which she usually does have when has infection Medication Changes From Visit Melatonin 3mg HS Vistaril 10mg daily prn #7 tablets Admission HPI Per Admitting Provider Maryana Madrigal is a pleasant 84yo female with history of CKD and GERD presenting from home with acute confusion. Patient lives at home and is independent. Her family reports that since early October she has had some intermittent episodes of confusion. Theses have been occurring multiple times daily (3-5) and typically involve patient not remembering what day it is or asking the same questions multiple times. 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 Today patient woke up and was very confused. She didn't know what day it was. Patient's son was in the ER earlier today - patient's told this to the patient but the patient did not recall being told. She was asking the same questions over and over and insisted that she was not told about her son being in the ER. Patient has had a very stressful couple of weeks - they have lost several distant family members and acquaintances of late. Patient reports that watching the news and keeping up with current events causes her a lot of stress. Over the last week she has been spending a lot of time on the computer researching how to protect her bank accounts from being hacked. Her reports that she has been on the computer all day for the last several days and that she hasn't been sleeping well at night. This has caused her a lot of stress and anxiety as well. Patient has had a slight headache; otherwise patient denies fever, chills, visual changes, chest pain, palpitations, cough, SOB, abdominal pain, nausea, vomiting, diarrhea, constipation, urinary complaints. Family denies speech deficits. Mini cognitive exam 05/23/24 patient scored 5/5 Admission Exam Per Admitting Provider General: patient resting comfortably, NAD, non-toxic in appearance, AA&O to person and location Skin: warm, dry, intact, no rashes or lesions HEENT: NC/AT, PERRL, EOMI, anicteric sclera, conjunctiva without injection, external ear normal to inspection and nontender, nares patent, moist mucus membranes, dentition intact, no oropharyngeal lesions, neck supple, trachea midline, no LAD, no thyromegaly, no JVD Heart: +S1/S2, regular, no m/r/g Lungs: equal air entry bilaterally, no rales/rhonchi/wheezes Abd: +BS, soft, NT/ND, no masses/organomegaly/ascites Ext: warm, 2+ pulses in UE/LE bilaterally, no clubbing/cyanosis or edema Neuro: nonfocal, patient AA&O x 4, speech intact, no facial droop, moving all extremities on command with equal strength 5/5 Discharge Exam General: 84yo female sitting up in bed, family at bedside, pleasant/cooperative, alert/oriented x 4 HEENT; head atraumatic, normocephalic, mm, trachea midlline Resp: even/unlabored, no wheezing/crackles rales or cough, on room air CV: RRR, no significant m/r/g, no pitting edema GI: +BS, soft, nontender no fisher MSK/Neuro: nonfocal, not confused, answering questions appropriately, no focal loss of strength, moves all extremities/follows commands Psych: AOx3, cooperative Discharge Plan Discharge Items Patient Disposition: Home - Self-Care Reason For Visit: CONFUSION Discharge Diagnosis: Insomnia Goals: You have been hospitalized for an acute medical problem. During your stay at [facility], we have made an effort to correct the problem that brought you to the hospital while keeping you as comfortable as possible. Medications were used to bring your condition under control and your discharge instructions will include directions for any medications you should take after leaving the hospital. Please make sure you see your Primary Care Provider as part of your follow up plan. Activity: Resume your previous activity Non-emergency contact: Primary Care Provider Call non-emergency contact if: you have any medication questions, your symptoms worsen and your pain is concerning for you Follow-up/Referrals: Yoanna Hernández MD [Primary Care Provider] - 12/19/24 1:00 pm Diet: Heart Healthy Addtl Attending Provider Instructions: You have been hospitalized for confusion/altered mental status. As discussed, I think given imaging of the head with CT scan and MRI brain negative for stoke and reports of increased stressors/anxiety/social issues and poor sleep most definitely contributed, especially given improvement with good sleep. Biofire testing was negative and urine did not appear infected/you were without symptoms from this but culture was sent for completeness and should alert primary care if you develop any symptoms. We have scheduled you melatonin, natural agent, to use at night daily to help with sleep and encourage good sleep hygiene (turning off all electronic devices/TV at least 1 hour before bed, reading a book/magazine, turning off all the lights, possibly using a relaxation shemar on the phone to assist with noises to allow you to fall asleep easier). We have also discussed medication called VISTARIL (hydroxyzine) 10mg to use NEEDED for anxiety and can also be taken at night to help sleep. I have discussed this medication with your primary care provider and am sending you on melatonin 3mg to take at night daily. I have also sent in short prescription of VISTARIL as discussed 10mg tablets and can utilize at night if melatonin not working but also can discuss additoinal as needed dosing during the day 1-2 times if effective/not having side effects from this medication. If you do take this, please make sure not driving until you ensure not having any issues with this medication given can make people sleepy (what we want for you if needing at night) Please follow up with primary care in the next 7-10 days from discharge to monitor your progress/adjustment of medications as needed. Please return to the ER with any increased confusion, fever/chills, chest pain, shortness of breath, or for any other symptoms concerning for you. It has been a pleasure being a part of the medical team providing for you while you have been in the hospital. Take care! Pending Studies at Discharge: Yes Studies:: urine cx-- no growth to date Stand-Alone Forms: My [employer], Smoking Cessation Medications and DC Order Prescriptions: New melatonin 3 mg Tablet 3 mg PO HS Qty: 30 0RF hydroxyzine HCl 10 mg Tablet 10 mg PO DAILY PRN (Reason: insomnia or anxiety) Qty: 7 0RF Continued Myrbetriq 25 mg tablet extended release 24 hr 25 mg PO DAILY Qty: 90 3RF multivitamin [Daily Multi-Vitamin] Tablet 1 tab PO QAM Rx Instructions: Unable to verify OTC meds at this date/time. cholecalciferol (vitamin D3) 50 mcg (2,000 unit) capsule 50 mcg PO DAILY Rx Instructions: Unable to verify OTC meds at this date/time. calcium carbonate [Calcium 600] 600 mg calcium (1,500 mg) tablet 600 mg PO DAILY Rx Instructions: Unable to verify OTC meds at this date/time. famotidine 40 mg tablet 20 mg PO DAILY Qty: 90 3RF alendronate 70 mg tablet 70 mg PO WK Discharge Orders: Discharge Order (Routine); Ordered 12/12/24 Ordered By: Emily Vail/Other Patient Handouts: Preventing Deep Vein Thrombosis Admission Data Admit Date/Time: 12/10/24 20:53 Attending Provider: Sander Jeff Admit Provider: Mayra Huizar Primary Care Provider: Yoanna Hernández Other Providers: Mayra Huizar Hospital Stay Data Consultations 12/10/24 20:27 ED Decision to Admit Stat Diagnostic Imagining Performed Chest X-Ray 12/10/24 16:50 Chest radiograph, one view History: Chest pain Comparison: 03/30/2017 Findings: Single AP view of the chest performed. No focal consolidation or pleural effusion. No pneumothorax. The cardiomediastinal silhouette is within normal limits. Normal pulmonary vascularity. No evidence for lymphadenopathy. No visualized bony or soft tissue abnormality. Impression: Normal chest radiograph Electronically signed by Samir Oquendo 12-10-2024 5:[address] 12/10/24 16:[address] without contrast CT angiogram of the neck CT angiogram of the brain with contrast Provided History: Neuro deficit Comparison: None Technique: HEAD CT: Using multidetector thin collimation helical acquisition technique, axial, coronal and sagittal CT images from the skull base to the vertex were obtained without intravenous contrast. HEAD and NECK CTA: During rapid bolus intravenous injection of nonionic contrast material, axial images were obtained using thin collimation multidetector helical technique from the base of the neck through the Vertex of vertex of the head. This CT angiogram data was reconstructed at thin intervals with mild overlap. 3D reconstructions were obtained. The axial source images, multiplanar reformations, 3D reconstructions in both maximum intensity projection display and volume rendered models were reviewed. Dose reduction techniques were achieved by using automatic exposure control and/or adjustment of mA and/or kV according to patient size and/or use of iterative reconstruction technique. Findings: Head CT: There is no intracranial hemorrhage, mass effect, or midline shift. Mascorro/white matter differentiation in both cerebral hemispheres is preserved. Ventricles are proportionate to the cerebral sulci. There is mild generalized cerebral atrophy. Head CTA demonstrates no aneurysm or stenosis of the major intracranial arteries. Neck CTA demonstrates no stenosis of the major cervical arteries. Mild calcification of the carotid bulbs without associated stenosis. The origins of the great vessels from the aortic arch are patent. The normal distal right internal carotid artery measures 5 mm. The normal distal left internal carotid artery measures 5 mm. No mass is noted within the visualized portions of the cervical soft tissues or lung apices. Impression: 1. Head CTA demonstrates no aneurysm or stenosis of the major intracranial arteries, 2. Neck CTA demonstrates no stenosis of the major cervical arteries. 3. No intracranial hemorrhage on the noncontrast head CT. The study was analyzed using artificial intelligence software for large vessel occlusion detection. Electronically signed by Samir Oquendo 12-10-2024 6:21 PM Head CTA 12/10/24 16:[address] without contrast CT angiogram of the neck CT angiogram of the brain with contrast Provided History: Neuro deficit Comparison: None Technique: HEAD CT: Using multidetector thin collimation helical acquisition technique, axial, coronal and sagittal CT images from the skull base to the vertex were obtained without intravenous contrast. HEAD and NECK CTA: During rapid bolus intravenous injection of nonionic contrast material, axial images were obtained using thin collimation multidetector helical technique from the base of the neck through the Vertex of vertex of the head. This CT angiogram data was reconstructed at thin intervals with mild overlap. 3D reconstructions were obtained. The axial source images, multiplanar reformations, 3D reconstructions in both maximum intensity projection display and volume rendered models were reviewed. Dose reduction techniques were achieved by using automatic exposure control and/or adjustment of mA and/or kV according to patient size and/or use of iterative reconstruction technique. Findings: Head CT: There is no intracranial hemorrhage, mass effect, or midline shift. Mascorro/white matter differentiation in both cerebral hemispheres is preserved. Ventricles are proportionate to the cerebral sulci. There is mild generalized cerebral atrophy. Head CTA demonstrates no aneurysm or stenosis of the major intracranial arteries. Neck CTA demonstrates no stenosis of the major cervical arteries. Mild calcification of the carotid bulbs without associated stenosis. The origins of the great vessels from the aortic arch are patent. The normal distal right internal carotid artery measures 5 mm. The normal distal left internal carotid artery measures 5 mm. No mass is noted within the visualized portions of the cervical soft tissues or lung apices. Impression: 1. Head CTA demonstrates no aneurysm or stenosis of the major intracranial arteries, 2. Neck CTA demonstrates no stenosis of the major cervical arteries. 3. No intracranial hemorrhage on the noncontrast head CT. The study was analyzed using artificial intelligence software for large vessel occlusion detection. Electronically signed by Samir Oquendo 12-10-2024 6:21 PM Neck CTA 12/10/24 16:[address] without contrast CT angiogram of the neck CT angiogram of the brain with contrast Provided History: Neuro deficit Comparison: None Technique: HEAD CT: Using multidetector thin collimation helical acquisition technique, axial, coronal and sagittal CT images from the skull base to the vertex were obtained without intravenous contrast. HEAD and NECK CTA: During rapid bolus intravenous injection of nonionic contrast material, axial images were obtained using thin collimation multidetector helical technique from the base of the neck through the Vertex of vertex of the head. This CT angiogram data was reconstructed at thin intervals with mild overlap. 3D reconstructions were obtained. The axial source images, multiplanar reformations, 3D reconstructions in both maximum intensity projection display and volume rendered models were reviewed. Dose reduction techniques were achieved by using automatic exposure control and/or adjustment of mA and/or kV according to patient size and/or use of iterative reconstruction technique. Findings: Head CT: There is no intracranial hemorrhage, mass effect, or midline shift. Mascorro/white matter differentiation in both cerebral hemispheres is preserved. Ventricles are proportionate to the cerebral sulci. There is mild generalized cerebral atrophy. Head CTA demonstrates no aneurysm or stenosis of the major intracranial arteries. Neck CTA demonstrates no stenosis of the major cervical arteries. Mild calcification of the carotid bulbs without associated stenosis. The origins of the great vessels from the aortic arch are patent. The normal distal right internal carotid artery measures 5 mm. The normal distal left internal carotid artery measures 5 mm. No mass is noted within the visualized portions of the cervical soft tissues or lung apices. Impression: 1. Head CTA demonstrates no aneurysm or stenosis of the major intracranial arteries, 2. Neck CTA demonstrates no stenosis of the major cervical arteries. 3. No intracranial hemorrhage on the noncontrast head CT. The study was analyzed using artificial intelligence software for large vessel occlusion detection. Electronically signed by Samir Oquendo 12-10-2024 6:21 PM Brain MRI 12/10/24 20:16 Exam(s): MRI HEAD Without Contrast EXAM: MR Head Without Intravenous Contrast CLINICAL HISTORY: Reason for exam: confusion. TECHNIQUE: Magnetic resonance images of the head/brain without intravenous contrast in multiple planes. COMPARISON: Prior head CT from June 09, 2025. FINDINGS: Brain: Minimal nonspecific white matter changes. The flow voids at the base of the brain are intact. No mass. No hemorrhage. No acute infarct. Ventricles: Moderate ventriculomegaly. Bones/joints: Unremarkable. No acute fracture. Sinuses: Chronic ethmoid sinusitis. No acute sinusitis. Mastoid air cells: Unremarkable as visualized. No mastoid effusion. Orbits: Bilateral lens replacements. IMPRESSION: No evidence of acute intracranial pathology. Electronically signed by: Rosina Adkins MD 12/11/24 01:38 AM Discharge Instructions Given to Patient (Per Discharging Provider) You have been hospitalized for confusion/altered mental status. As discussed, I think given imaging of the head with CT scan and MRI brain negative for stoke and reports of increased stressors/anxiety/social issues and poor sleep most definitely contributed, especially given improvement with good sleep. Biofire testing was negative and urine did not appear infected/you were without symptoms from this but culture was sent for completeness and should alert primary care if you develop any symptoms. We have scheduled you melatonin, natural agent, to use at night daily to help with sleep and encourage good sleep hygiene (turning off all electronic devices/TV at least 1 hour before bed, reading a book/magazine, turning off all the lights, possibly using a relaxation shemar on the phone to assist with noises to allow you to fall asleep easier). We have also discussed medication called VISTARIL (hydroxyzine) 10mg to use NEEDED for anxiety and can also be taken at night to help sleep. I have discussed this medication with your primary care provider and am sending you on melatonin 3mg to take at night daily. I have also sent in short prescription of VISTARIL as discussed 10mg tablets and can utilize at night if melatonin not working but also can discuss additoinal as needed dosing during the day 1-2 times if effective/not having side effects from this medication. If you do take this, please make sure not driving until you ensure not having any issues with this medication given can make people sleepy (what we want for you if needing at night) Please follow up with primary care in the next 7-10 days from discharge to monitor your progress/adjustment of medications as needed. Please return to the ER with any increased confusion, fever/chills, chest pain, shortness of breath, or for any other symptoms concerning for you. It has been a pleasure being a part of the medical team providing for you while you have been in the hospital. Take care! Total Time Total Time Spent Total Time Spent (In Minutes): 35 Coding Level of Care Code 04966 INP/OBS DISCH >30 MIN Diagnoses Acute confusion R41.0 Acute insomnia G47.00 Depression with anxiety F41.8
[2024-12-12 10:01] VITALS: BP 114/68; PULSE 87
== END 2024-12-12 10:36 | disposition home or self-care (01) ==
LOC: 3N 15:16 → ED 15:16 → SUATTDRO 20:53 → 3N 21:52